=== PATIENT | male | born 1935 | race Caucasian/White ===

== ENCOUNTER → 2016-12-07 | Outpatient (CLI) | payer OTHER, BC ==
[~2016-12-07] MED LIST: ACET-1311 PO; ASPEC81 PO; ATOR-24 PO; CALC1TAB56 PO; CEPH500C2 PO; Citracal PO; FOLI1TAB7 PO; HYDR-5688 PO; ISOS120T5 PO; LPT40 PO; METH2.5T PO; METO25TA56 PO; MULTCHW PO; NTRGSL/4 UT; PRED-301 PO; PRLSR20 PO
[2016-12-07 13:16] LABS: BASO % 0.1 %; BASO ABS # 0.01 K/uL (0-0.2); COMPLETE YES; EOS % 1.1 %; HEMATOCRIT 38.3 % (42-52); IG% 0.2 %; LYMPH % 10.7 %; LYMPH ABS # 0.93 K/uL (1.2-3.4); MEAN CORPUSCULAR HEMOGLOBIN 33.4 pg (25-34); MEAN CORPUSCULAR HGB CONC 33.4 g/dl (32-36); MEAN PLATELET VOLUME 11.1 fL (7.4-10.4); MONO % 4.7 %; NEUT % 83.2 %; PLATELET COUNT 185 K/uL (130-400); RED BLOOD COUNT 3.83 M/uL (4.7-6.1); WHITE BLOOD COUNT 8.72 K/uL (4.8-10.8)
[2016-12-07 13:25] LABS: URINE APPEARANCE CLEAR (CLEAR); URINE BILIRUBIN NEG (NEG); URINE COLOR YELLOW; URINE EPITHELIAL CELL AUTO 0-5 /lpf (0-5); URINE NITRITE NEG (NEG); URINE SPECIFIC GRAVITY 1.013 (1.000-1.030); UROBILINOGEN NEG (NEG)
[2016-12-07 13:30] LABS: MANUAL MICROSCOPIC REQUIRED? NO; REVIEW REQ? NO
[2016-12-07 13:52] LABS: URINE PROTIEN/CREAT RATIO 0.5 (0-0.2); URINE TOTAL PROTEIN 24.3 mg/dl (0-11.9)
[2016-12-07 13:56] LABS: BLOOD UREA NITROGEN 32 mg/dl (7-18); GLUCOSE 91 mg/dl (70-99)
[2016-12-07 13:57] LABS: ALT/SGPT 22 U/L (12-78); AST/SGOT 12 U/L (15-37); BUN/CREATININE RATIO 19.9 (10-20); CALCIUM 8.9 mg/dl (8.5-10.1); CARBON DIOXIDE 27 mmol/L (21-32); CHLORIDE 106 mmol/L (98-107); POTASSIUM 4.5 mmol/L (3.5-5.1); SODIUM 142 mmol/L (136-145)
[2016-12-07 13:59] LABS: ALB/GLOB RATIO 1.3 (0.9-2); ALKALINE PHOSPHATASE 65 U/L (45-117)
== END | disposition home or self-care (01) ==
LOC: C.LAB1850 11:49
PROVIDERS: ATTEND Internal Medicine Nephrology
DX: M06.9 Rheumatoid arthritis, unspecified (principal); Z79.899 Other long term (current) drug therapy; I12.9 Hypertensive chronic kidney disease with stage 1 through stage 4 chronic kidney disease, or unspecified chronic kidney disease; D64.9 Anemia, unspecified; N18.3 Chronic kidney disease, stage 3 (moderate); E78.00 Pure hypercholesterolemia, unspecified

== ENCOUNTER → 2016-12-27 | Outpatient (CLI) | payer OTHER, BC ==
--- NOTE | 2016-12-27 15:56 | DIAGNOSTIC IMAGING REPORT ---
ULTRASOUND LEFT LOWER EXTREMITY ARTERIAL; ANKLE-BRACHIAL INDICES CLINICAL HISTORY: Peripheral vascular disease. COMPARISON STUDY: No priors. TECHNIQUE: Real-time, grayscale, and color Doppler sonography of the arteries of the left lower extremity is performed from the inguinal crease to the foot. Ankle-brachial indices were calculated on the left. FINDINGS: Ankle-brachial indices: Left brachial pressure measures 141. Pressures in the left posterior tibial artery measure 111 for an GUSTAVO of 0.79, and pressures in the left dorsalis pedis measure 139 for an GUSTAVO of 0.99. Left lower extremity: There is moderate atherosclerotic plaque and irregularity seen throughout the arteries of the left lower extremity. There are biphasic waveforms in the left common femoral artery with velocities measuring up to 65 cm/s. The left profunda femoris artery is patent with velocities measuring up to 80 cm/s. There are biphasic waveforms seen throughout the superficial femoral artery with velocities measuring up to 116 cm/s. There are biphasic waveforms in the popliteal artery with velocities measuring up to 92 cm/s. There is three-vessel runoff to the foot. There are elevated velocities present within the anterior tibial artery measure 121 cm/s. Blunted arterial waveforms are seen distally within the left anterior tibial artery. The left peroneal and posterior tibial arteries are patent with velocities measuring up to 67 cm/s. There is monophasic flow within the dorsalis pedis artery. Velocities in the dorsalis pedis measure up to 10 cm/s. IMPRESSION: 1. Findings suggest stenosis within the anterior tibial artery. There are blunted arterial waveforms in the distal anterior tibial artery with monophasic flow in the dorsalis pedis artery. 2. No additional foci of stenosis are suggested in the arteries of the left lower extremity. See above. 3. Ankle-brachial indices in the left lower extremity as above. Dictated: 12/27/2016 3:22 PM Transcribed: 12/27/2016 3:54 PM [place] Electronically signed by: Daryl Pathak M.D. 12/27/2016 3:55 PM Dictated Date/Time: 12/27/2016 3:22 PM
== END | disposition home or self-care (01) ==
LOC: C.ULTR 13:41
PROVIDERS: ATTEND Internal Medicine Nephrology
DX: E55.9 Vitamin D deficiency, unspecified (principal); D64.9 Anemia, unspecified; I12.9 Hypertensive chronic kidney disease with stage 1 through stage 4 chronic kidney disease, or unspecified chronic kidney disease; N18.3 Chronic kidney disease, stage 3 (moderate); N20.0 Calculus of kidney

== ENCOUNTER → 2017-01-01 | Outpatient (CLI) | payer OTHER, BC ==
--- NOTE | 2017-01-01 12:17 | DIAGNOSTIC IMAGING REPORT ---
LEFT KNEE 3 VIEWS CLINICAL HISTORY: M06.9 Rheumatoid [id number] Osteoarthritis of [id number] H pain COMPARISON: None. DISCUSSION: Considerable degenerative change all major joint compartments. Moderate underlying chondrocalcinosis. No significant joint effusion. Moderate reactive osteophytic formation throughout all major joint compartments. There is no evidence for soft tissue swelling. IMPRESSION: Severe degenerative change all major joint compartments. Chondrocalcinosis. Electronically signed by: Tushar Perry M.D. 01/01/2017 12:15 PM Dictated Date/Time: 01/01/2017 12:14 PM
== END | disposition home or self-care (01) ==
LOC: C.RAD1850 11:26
PROVIDERS: ATTEND Internal Medicine Rheumatology
DX: N18.3 Chronic kidney disease, stage 3 (moderate) (principal); M06.9 Rheumatoid arthritis, unspecified; M17.10 Unilateral primary osteoarthritis, unspecified knee; Z79.899 Other long term (current) drug therapy

== ENCOUNTER 2017-01-11 09:04 | Emergency (ER) | payer OTHER, BC ==
[~2017-01-11] VITALS: Ht 168.9 cm; Wt 64.7 kg
[~2017-01-11 09:04] MED LIST changes: -ACET-1311 PO; -ATOR-24 PO; -CALC1TAB56 PO; -CEPH500C2 PO
[2017-01-11 09:10] VITALS: Ht 168.9 cm; Wt 64.7 kg
[2017-01-11 09:56] LABS: BASO % 0.2 %; BASO ABS # 0.01 K/uL (0-0.2); COMPLETE YES; EOS % 2.4 %; HEMATOCRIT 37.2 % (42-52); IG% 0.5 %; LYMPH % 12.9 %; LYMPH ABS # 0.85 K/uL (1.2-3.4); MEAN CORPUSCULAR HEMOGLOBIN 33.5 pg (25-34); MEAN CORPUSCULAR HGB CONC 32.5 g/dl (32-36); MEAN PLATELET VOLUME 10.6 fL (7.4-10.4); MONO % 9.1 %; NEUT % 74.9 %; PLATELET COUNT 189 K/uL (130-400); RED BLOOD COUNT 3.61 M/uL (4.7-6.1)
[2017-01-11 10:13] LABS: BUN/CREATININE RATIO 18.5 (10-20); CALCIUM 8.6 mg/dl (8.5-10.1); CREATININE 1.8 mg/dl (0.60-1.40); POTASSIUM 4.5 mmol/L (3.5-5.1)
[2017-01-11] MEDS ORDERED: ATOR-24 PO (10:23)
[2017-01-11] MEDS ORDERED: METO25TA56 PO (10:24)
[2017-01-11] MEDS ORDERED: ACET-1311 PO (10:25)
[2017-01-11] MEDS ORDERED: CEFTRIAXONE SOD INJ 1 GM ADDVIAL IV STA (11:11)
--- NOTE | 2017-01-11 13:16 | DIAGNOSTIC IMAGING REPORT ---
ULTRASOUND LEFT THIGH NONVASCULAR CLINICAL HISTORY: Cellulitis. COMPARISON STUDY: No priors. FINDINGS: Real-time, grayscale, and color flow sonography of the soft tissues of the left proximal thigh is performed in the kidneys of interest. There is significant simultaneous soft tissue edema identified in this region. There is a small complex collection suggested at this site measuring 3.0 x 1.2 x 1.2 cm. A small abscess is not excluded, and this is located approximately 1 cm deep to the dermal surface. There is regional hyperemia on color imaging. IMPRESSION: There is subcutaneous soft tissue edema and hyperemia in the region of interest consistent with cellulitis. A small complex fluid collection is suggested and measures up to 3.0 cm. This could represent subcutaneous edema/fluid or small abscess. Clinical correlation will be required. Electronically signed by: Daryl Pathak M.D. 01/11/2017 1:15 PM Dictated Date/Time: 01/11/2017 1:12 PM
[2017-01-11 14:17] VITALS: BP 192/98; PULSE 80; TEMP 36.8; O2SAT 99
--- NOTE | 2017-01-11 15:13 | EMERGENCY ROOM VISIT NOTE ---
ED Visit Note First contact with patient: 09:16 I have personally seen and evaluated the patient with the PA. I agree with the diagnosis and management decisions and have been personally involved in the case. Please see Aurelio Warner PA-C's notes for further details of the history, physical and visit.
--- NOTE | 2017-01-11 17:30 | EMERGENCY ROOM VISIT NOTE ---
ED Visit Note First contact with patient: 09:16 CHIEF COMPLAINT: Lump on my left thigh, . HISTORY OF PRESENT ILLNESS: Mr. Barrera is an 81-year-old white male who ambulates with a cane into the ED accompanied by his complaining of a possible infection on the left thigh. Patient reports 5 days ago he noted a hard tender area on the medial border of the proximal thigh. She reports initially this hard tender area was small but has gradually increased in size and is now more tender and more painful. He is also noted that the area is getting larger and extending posterior into the base of the left gluteus area. Currently he describes his pain as a constant pressure sensation with intermittent sharp sensation. He rates his discomfort 8/10. The pain is throughout the area of the lesion but does not extend outside the lesion area. His pain worsens when he is sitting on his buttocks and also when he is lying down. He has not identified any alleviating factors related to the pain. He has been taken Tylenol for pain without relief. He denies fevers, chills, sweats, other skin eruptions, other skin color changes , upper respiratory tract symptoms, chest pain, shortness of breath, abdominal pain, nausea, vomiting, decreased appetite, urinary symptoms, hematuria, rectal pain, diarrhea, constipation, black/tarry stools, bloody stools, lower extremity weakness/numbness/tingling, genital paresthesias, bowel and bladder dysfunction. REVIEW OF SYSTEMS: All body systems were reviewed with the patient and found to be negative unless noted above otherwise. PAST MEDICAL HISTORY: Heart disease, hypertension, kidney stones. CURRENT MEDICATION: Medications Dose Route/Sig Max Daily Dose Days Date Category Dose Instructions Tylenol (Acetaminophen) 325 Mg Tab 650 Mg PO UD PRN 01/11/17 Reported Lopressor (Metoprolol Tartrate) 25 Mg Tab 25 Mg PO BID 01/11/17 Reported Lipitor (Atorvastatin Calcium) 40 Mg Tab 40 Mg PO DAILY 01/11/17 Reported Aspirin EC Low Dose (Aspirin) 81 Mg Ectab 81 Mg PO QAM 30 07/13/16 Rx Nitrostat (Nitroglycerin) 0.4 Mg Tab 0.4 Mg UT PRN 07/13/16 Reported [place] 5MG/325MG (Acetaminophen/Hydrocodone Bitart) Tab 1 Tab PO Q6H PRN 30 07/13/16 Reported PRN PAIN Prednisone 5 Mg Tab 5 Mg PO DAILY 07/13/16 Reported Centrum Silver (Multiple Vitamins W/ Minerals) 1 Chw Chw 1 Tab PO DAILY 03/19/13 Reported Folvite (Folic Acid) 1 Mg Tab 1 Mg PO 6XWK 03/19/13 Reported NONE ON SUNDAYS Prilosec (Omeprazole) 20 Mg Capcr 20 Mg PO BID 03/19/13 Reported Methotrexate 2.5 Mg Tab 10 Mg PO WK 03/19/13 Reported SUNDAY ALLERGIES TO MEDICATION: Sulfa, IV contrast dye and Dutasteride. SOCIAL HISTORY: Patient is not currently employed; he lives with his and feels safe in his home environment; he denies tobacco and alcohol use. PHYSICAL EXAM: Vital Signs: Date Time Temp Pulse Resp B/P Pulse Ox O2 Delivery O2 Flow Rate FiO2 01/11/17 14:17 36.8 80 18 192/98 99 01/11/17 11:05 59 18 142/74 99 Room Air 01/11/17 09:10 36.8 67 17 173/61 98 Room Air General: 81 year-old white male in in moderate distress due to pain, nontoxic appearing, afebrile and hemodynamically stable. Neurological: Awake, alert and oriented to person, place and time. Answering questions appropriately and following commands. Skin: Warm, dry and pink. Left Proximal Thigh: Over the medial border of the thigh there is an indurated area that measures approximately 2 cm. It then follows up posterior course and stops over the distal gluteal area on the left buttocks. The area is not fluctuant or pointing. There is no lymphangitis or drainage. There is a minimal a zone of inflammation around the lesion. Thorax: Lungs sounds are clear to auscultation and equal bilaterally with symmetrical chest wall movement. No wheezing, rales or rhonchi. No increased respiratory effort. Abdomen: Flat, soft and nontender. Positive bowel sounds in all quadrants. No guarding or rigidity. ED COURSE: Patient is assessed as noted above. Laboratory Testing: Test 01/11/17 09:40 Range/Units White Blood Count 6.60 4.8-10.8 K/uL Red Blood Count 3.61 4.7-6.1 M/uL Hemoglobin 12.1 14.0-18.0 g/dL Hematocrit 37.2 42-52 % Mean Corpuscular Volume 103.0 80-100 fL Mean Corpuscular Hemoglobin 33.5 25-34 pg Mean Corpuscular Hemoglobin Concent 32.5 32-36 g/dl Platelet Count 189 130-400 K/uL Mean Platelet Volume 10.6 7.4-10.4 fL Neutrophils (%) (Auto) 74.9 % Lymphocytes (%) (Auto) 12.9 % Monocytes (%) (Auto) 9.1 % Eosinophils (%) (Auto) 2.4 % Basophils (%) (Auto) 0.2 % Neutrophils # (Auto) 4.95 1.4-6.5 K/uL Lymphocytes # (Auto) 0.85 1.2-3.4 K/uL Monocytes # (Auto) 0.60 0.11-0.59 K/uL Eosinophils # (Auto) 0.16 0-0.5 K/uL Basophils # (Auto) 0.01 0-0.2 K/uL RDW Standard Deviation 56.0 36.4-46.3 fL RDW Coefficient of Variation 15.1 11.5-14.5 % Immature Granulocyte % (Auto) 0.5 % Immature Granulocyte # (Auto) 0.03 0.00-0.02 K/uL Sodium Level 139 136-145 mmol/L Potassium Level 4.5 3.5-5.1 mmol/L Chloride Level 108 98-107 mmol/L Carbon Dioxide Level 26 21-32 mmol/L Anion Gap 5.0 3-11 mmol/L Blood Urea Nitrogen 33 7-18 mg/dl Creatinine 1.80 0.60-1.40 mg/dl Est Creatinine Clear Calc Drug Dose 30.5 ml/min Estimated GFR () 40.6 Estimated GFR (Non- 35.0 BUN/Creatinine Ratio 18.5 10-20 Random Glucose 87 70-99 mg/dl Calcium Level 8.6 8.5-10.1 mg/dl Nonvascular Extremity Ultrasound: Was reviewed by myself and read by the radiologist showing subcutaneous soft tissue edema and hyperemia in the proximal left thigh consistent with cellulitis. A small complex fluid collection is suggested and measures up to 3 cm which could represent edema/ fluid or small abscess. Drainage Procedure: Verbal consent was obtained after the risks and benefits were explained. The skin was prepped with betadine and a sterile field set. The abscess was punctured with a long needle 3 times. Multiple attempts to aspirate the underlying cystic lesion was unsuccessful. Iodoform gauze packing was inserted into the abscess. A sterile dressing was applied. No complications and the patient tolerated the procedure well. Patient was offered pain medications multiple times during his stay in the emergency and refused. Patient was given a gram of Rocephin IV. Patient's case was reviewed with Dr. Ponce; she apparently assessed the patient we agreed on diagnostic approach, treatment, disposition and plan. Patient was educated about his condition and instructed on his treatment plan; they verbalized understanding and agreement with this plan. CLINICAL IMPRESSION: Abscess of the left thigh. DISPOSITION: Patient discharged to home in stable condition accompanied by his ; prior to departure he was reassessed and subjectively reported he was feeling better and rated his discomfort 5/10. PLAN: Patient was encouraged to alternate ibuprofen and acetaminophen as needed for pain. Patient was encouraged use warm compresses over the area. Patient was encouraged return the ED for recheck tomorrow or sooner for fevers, worsening pain, worsening signs of infection or any new/concerning symptoms.
[2017-01-12] MEDS ORDERED: CALC1TAB56 PO (13:28)
[2017-01-12] MEDS ORDERED: HYDR-5688 PO (16:03)
[2017-01-12] MEDS ORDERED: CEPH500C2 PO (16:03)
== END 2017-01-11 14:18 | disposition home or self-care (01) ==
LOC: C.EDB 09:05 → C.EDA 14:18
DX: L02.416 Cutaneous abscess of left lower limb (principal); I10 Essential (primary) hypertension; Z87.442 Personal history of urinary calculi

== ENCOUNTER 2017-01-12 12:51 | Emergency (ER) | payer OTHER, BC ==
[~2017-01-12] VITALS: Ht 167.6 cm; Wt 64.6 kg
[~2017-01-12 12:51] MED LIST changes: +ACET-1311 PO; +ATOR-24 PO
[2017-01-12 12:59] VITALS: TEMP 36.7; Ht 167.6 cm; Wt 64.6 kg
[2017-01-12] MEDS ORDERED: CEFTRIAXONE SOD INJ 1 GM ADDVIAL IV STA (13:15)
[2017-01-12] MEDS ORDERED: ONDANSETRON INJ 2 MG/ML 2 ML VIAL IV STA (13:23)
[2017-01-12] MEDS ORDERED: MoRPHine SULFATE 4 MG/ML 1 ML CARP\\VIAL IV STA (13:23)
[2017-01-12] MEDS ORDERED: CALC1TAB56 PO (13:28)
--- NOTE | 2017-01-12 15:34 | DIAGNOSTIC IMAGING REPORT ---
ULTRASOUND LEFT THIGH NONVASCULAR CLINICAL HISTORY: Cellulitis. COMPARISON STUDY: Ultrasound of the left thigh dated 01/11/2017. FINDINGS: Real-time, grayscale, and color flow sonography of the soft tissues of the left proximal thigh is performed at the site of interest. Subcutaneous soft tissue edema is again seen in this region. There is a small complex collection again suggested at this site measuring 3.1 x 1.1 x 1.2 cm. A small abscess is not excluded, and this is located approximately 1 cm deep to the dermal surface. This was marked for the referring clinician. There is regional hyperemia again suggested on color imaging. IMPRESSION: No significant change in the appearance of subcutaneous soft tissue edema and hyperemia in the region of interest in the left thigh consistent with cellulitis. A small complex fluid collection is again identified and measures up to 3.0 cm. This likely represents a small abscess. Electronically signed by: Daryl Pathak M.D. 01/12/2017 3:32 PM Dictated Date/Time: 01/12/2017 3:29 PM
[2017-01-12] MEDS ORDERED: CEPH500C2 PO (16:03)
[2017-01-12] MEDS ORDERED: HYDR-5688 PO (16:03)
[2017-01-12 16:21] VITALS: BP 131/94; PULSE 68; O2SAT 97
--- NOTE | 2017-01-12 18:38 | EMERGENCY ROOM VISIT NOTE ---
ED Visit Note First contact with patient: 13:15 I have personally seen and evaluated the patient with the PA. I agree with the diagnosis and management decisions and have been personally involved in the case. Please see Aurelio Warner PA-C's notes for further details of the history, physical and visit.
--- NOTE | 2017-01-13 21:58 | EMERGENCY ROOM VISIT NOTE ---
ED Visit Note First contact with patient: 13:05 CHIEF COMPLAINT: Abscess recheck. HISTORY OF PRESENT ILLNESS: Mr. Barrera is an 81-year-old white male who ambulates with a cane into the ED accompanied by his for a recheck of his abscess. I had seen Mr. Barrera yesterday in the emergency department and he was diagnosed with a proximal left leg abscess. At that time laboratory results are unremarkable and an ultrasound did show an abscess in the area of his infection. A drainage procedure was attempted but was unsuccessful. He did receive a course of IV antibiotics and was encouraged to return today for recheck. Patient reports throughout tonight he continued to have moderate discomfort in the area of his abscess primarily when he is sitting but did not have any fevers or any additional symptoms. Currently he is complaining of a throbbing pain in the area of his abscess. He rates this discomfort 8/10. The pain is nonradiating. His pain does worsen when he is sitting on his buttocks. He has mild relief of his discomfort when he is not putting pressure on the area of his abscess. He denies fevers, chills, sweats, any additional skin eruptions or skin color changes, decreased appetite, chest pain, shortness of breath, nausea, vomiting, leg weakness/numbness/tingling. REVIEW OF SYSTEMS: All body systems were reviewed with the patient and found to be negative unless noted above otherwise. PAST MEDICAL HISTORY: Heart disease, hypertension, kidney stones. CURRENT MEDICATION: Medications Dose Route/Sig Max Daily Dose Days Date Category Dose Instructions Tylenol (Acetaminophen) 325 Mg Tab 650 Mg PO UD PRN 01/11/17 Reported Lopressor (Metoprolol Tartrate) 25 Mg Tab 25 Mg PO BID 01/11/17 Reported Lipitor (Atorvastatin Calcium) 40 Mg Tab 40 Mg PO DAILY 01/11/17 Reported Aspirin EC Low Dose (Aspirin) 81 Mg Ectab 81 Mg PO QAM 30 07/13/16 Rx Nitrostat (Nitroglycerin) 0.4 Mg Tab 0.4 Mg UT PRN 07/13/16 Reported [place] 5MG/325MG (Acetaminophen/Hydrocodone Bitart) Tab 1 Tab PO Q6H PRN 30 07/13/16 Reported PRN PAIN Prednisone 5 Mg Tab 5 Mg PO DAILY 07/13/16 Reported Centrum Silver (Multiple Vitamins W/ Minerals) 1 Chw Chw 1 Tab PO DAILY 03/19/13 Reported Folvite (Folic Acid) 1 Mg Tab 1 Mg PO 6XWK 03/19/13 Reported NONE ON SUNDAYS Prilosec (Omeprazole) 20 Mg Capcr 20 Mg PO BID 03/19/13 Reported Methotrexate 2.5 Mg Tab 10 Mg PO WK 03/19/13 Reported SUNDAY ALLERGIES TO MEDICATION: Sulfa, IV contrast dye and Dutasteride. SOCIAL HISTORY: Patient is not currently employed; he lives with his and feels safe in his home environment; he denies tobacco and alcohol use. PHYSICAL EXAM: Vital Signs: Date Time Temp Pulse Resp B/P Pulse Ox O2 Delivery O2 Flow Rate FiO2 01/12/17 16:21 68 18 131/94 97 01/12/17 14:36 58 160/77 95 01/12/17 12:59 36.7 72 20 132/75 98 Room Air General: 81 year-old white male in mild moderate distress due to pain, nontoxic appearing, afebrile and hemodynamically stable. Neurological: Awake, alert and oriented to person, place and time. Answering questions appropriately and following commands. Skin: Warm, dry and pink. Left Proximal Thigh: Over the medial border of the thigh there is an indurated area that measures approximately 2 cm. the area of erythema then tracks posteriorly and stops over the distal gluteal area on the left buttocks. The area continues used to be nonfluctuant and there is no porting or drainage. The erythema appears last then yesterday. There was some shininess to the skin yesterday that is not present today. The area up appears flatter today than it was yesterday. There continues to be no lymphangitis. The zone of inflammation around the lesion has completely resolved and now there is only the indurated area. Thorax: Lungs sounds are clear to auscultation and equal bilaterally with symmetrical chest wall movement. No wheezing, rales or rhonchi. No increased respiratory effort. Abdomen: Flat, soft and nontender. Positive bowel sounds in all quadrants. No guarding or rigidity. ED COURSE: Patient is assessed as noted above. Nonvascular Extremity Ultrasound: Was reviewed by myself and read by the radiologist showing no significant change in the ultrasound and the appearance of the soft tissue edema and hyperemia. He reports the small complex fluid collection is still identify and does not appear to changed. After I received this report from the radiologist he did contact me by phone and when I discussed a plan to try to drain the abscess he did not feel that would be beneficial at this time and recommended follow-up with a surgeon. Patient was given a 1 gram of Rocephin IV, 4 mg of morphine IV for pain and 4 mg of Zofran IV. Patient's case was reviewed with Dr. Ponce; she apparently assessed the patient we agreed on diagnostic approach, treatment, disposition and plan. Patient and were educated about his condition and instructed on his treatment plan; they verbalized understanding and agreement with this plan. CLINICAL IMPRESSION: Abscess recheck. DISPOSITION: Patient discharged to home in stable condition accompanied by his ; prior to departure he was reassessed and subjectively reported he was feeling better and rated his discomfort 3/10. PLAN: Patient was placed on a sliding pain scale of acetaminophen and [place]; appropriate narcotic precautions were discussed with the patient. Patient was prescribed Keflex 500 mg 4 times a day for 10 days. Patient was encouraged to follow-up with Dr. Styles, general surgery. Patient was encouraged to continue to observe the area every day and watch for increasing signs of infection. Patient was encouraged return to the ED for increasing signs of infection or any new/concerning symptoms.
== END 2017-01-12 16:22 | disposition home or self-care (01) ==
LOC: C.EDB 12:54 → C.EDD 16:22
DX: L02.416 Cutaneous abscess of left lower limb (principal); I10 Essential (primary) hypertension; Z87.442 Personal history of urinary calculi

== ENCOUNTER → 2017-05-02 | Outpatient (CLI) | payer OTHER, BC ==
[~2017-05-02] MED LIST changes: +CALC1TAB56 PO; -Citracal PO; -ISOS120T5 PO; -LPT40 PO
[2017-05-02 12:26] LABS: BASO % 0.2 %; BASO ABS # 0.02 K/uL (0-0.2); COMPLETE YES; EOS % 0.9 %; HEMATOCRIT 38.7 % (42-52); IG% 0.2 %; LYMPH % 9.1 %; LYMPH ABS # 0.74 K/uL (1.2-3.4); MEAN CELL VOLUME 102.9 fL (80-100); MEAN CORPUSCULAR HGB CONC 33.1 g/dl (32-36); MEAN PLATELET VOLUME 10.8 fL (7.4-10.4); MONO % 4.8 %; NEUT % 84.8 %; PLATELET COUNT 225 K/uL (130-400); RED BLOOD COUNT 3.76 M/uL (4.7-6.1); WHITE BLOOD COUNT 8.09 K/uL (4.8-10.8)
[2017-05-02 13:35] LABS: ALT/SGPT 26 U/L (12-78); AST/SGOT 20 U/L (15-37)
[2017-05-02 13:39] LABS: ALKALINE PHOSPHATASE 61 U/L (45-117)
== END | disposition home or self-care (01) ==
LOC: C.LAB1850 11:06
PROVIDERS: ATTEND Internal Medicine Rheumatology
DX: M06.9 Rheumatoid arthritis, unspecified (principal); M17.10 Unilateral primary osteoarthritis, unspecified knee; N18.3 Chronic kidney disease, stage 3 (moderate); Z79.899 Other long term (current) drug therapy

== ENCOUNTER → 2017-06-07 | Outpatient (CLI) | payer OTHER, BC ==
[2017-06-07 09:57] LABS: CHOLESTEROL/HDL RATIO 2.4
== END | disposition home or self-care (01) ==
LOC: C.LAB1850 08:09
PROVIDERS: ATTEND Internal Medicine Cardiovascular Disease
DX: I10 Essential (primary) hypertension (principal); E78.00 Pure hypercholesterolemia, unspecified; I25.10 Atherosclerotic heart disease of native coronary artery without angina pectoris; I20.9 Angina pectoris, unspecified; I77.810 Thoracic aortic ectasia

== ENCOUNTER 2017-11-28 23:54 | Inpatient (IN) | payer OTHER, BC ==
[~2017-11-28] VITALS: Ht 165.1 cm; Wt 61.0 kg
[~2017-11-28 23:54] MED LIST changes: -ASPEC81 PO; +ASPI-320 PO; -LSN5 PO; -OXYC-57 PO
[2017-11-29] VITALS (58 sets, daily range): BP systolic 104–179; BP diastolic 51–91; PULSE 60–94; TEMP 36.5–36.7; O2SAT 91–99; BMI 22.3
[2017-11-29] MEDS ORDERED: SODIUM CHLORIDE 0.9% 1000ML 1,000 ML IV STA (00:16)
[2017-11-29] MEDS ORDERED: MoRPHine SULFATE 4 MG/ML 1 ML CARP\\VIAL IV STA (00:16)
[2017-11-29] MEDS ORDERED: ONDANSETRON INJ 2 MG/ML 2 ML VIAL IV STA (00:16)
--- NOTE | 2017-11-29 00:21 | EMERGENCY ROOM VISIT NOTE ---
History Report prepared by Scribe: Kelly Schultz Under the Supervision of: Dr. Kacie Ponce M.D. First contact with patient: 00:06 Chief Complaint: ABDOMINAL PAIN Stated Complaint: PAIN AT [place] History of Present Illness The patient is a 82 year old male who presents to the Emergency Room with complaints of persistent abdominal pain since 2199 this evening. He states he was laying in bed when the pain started, and he noticed a lump in his umbilical area that he believes is a hernia. He rates his discomfort as an 8/10 in severity. His last BM was yesterday. He admits to increased coughing for the past few months and states coughing worsens his pain. Laying flat helps to relieve his discomfort. He denies any recent nausea or vomiting. Source of History: patient Onset: 2199 this evening Position: abdomen Symptom Intensity: 8/10 Timing: other (persistent) Modifying Factors (Worsening): other (coughing) Modifying Factors (Relieving): other (laying flat) Associated Symptoms: No nausea, No vomiting Review of Systems See HPI for pertinent positives & negatives. A total of 10 systems reviewed and were otherwise negative. 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 Surgical Problems: (1) History of lumbosacral spine surgery (2) Hx of CABG (3) S/P bilateral inguinal hernia repair Social History Smoking Status: Former Smoker Alcohol Use: occasionally Drug Use: none Marital Status: Housing Status: lives with family Occupation Status: retired Current/Historical Medications Scheduled Aspirin (Aspirin EC Low Dose), 81 MG PO QAM Atorvastatin (Lipitor), 40 MG PO HS Calcium-Magnesium W/ Vitamin D (Citracal Calcium+D Slow R), 1 TAB PO DAILY Folic Acid (Folvite), 1 MG PO 6XWK Methotrexate (Methotrexate), 10 MG PO WK Metoprolol Tartrate (Lopressor) (Lopressor), 25 MG PO BID Multiple Vitamins W/ Minerals (Centrum Silver), 1 TAB PO DAILY Omeprazole (Prilosec), 20 MG PO DAILY Prednisone (Prednisone), 5 MG PO DAILY Scheduled PRN Nitroglycerin (Nitrostat), 0.4 MG UT UD PRN for Chest Pain Allergies Coded Allergies: Iodinated Diagnostic Agents (Verified Allergy, Unknown, HIVES, 11/29/17) Sulfa Antibiotics (Verified Allergy, Unknown, HIVES, 11/29/17) Dutasteride (Unverified Adverse Reaction, Unknown, Skin lesions, 11/29/17) Physical Exam Vital Signs Date Time Temp Pulse Resp B/P (MAP) Pulse Ox O2 Delivery O2 Flow Rate FiO2 11/29/17 04:34 60 18 199/80 98 11/29/17 04:10 60 18 199/80 98 11/29/17 03:00 55 18 179/80 99 Room Air 11/29/17 02:00 53 18 150/74 95 Room Air 11/29/17 01:00 56 16 149/71 98 Room Air 11/28/17 23:59 36.3 62 18 192/93 98 Room Air Physical Exam Vital signs reviewed. General: Chronically ill-appearing 82 year old male, in no significant distress. HEENT: No scleral icterus, PERRLA, neck supple. Atraumatic. Cardiovascular: Regular rate and rhythm, no extra sounds. Pulmonary: Clear to auscultation bilaterally, normal work of breathing. Abdomen: Soft, 4 cm hard mass at umbilicus, tender to palpation, not currently reducible. Abdomen is nondistended, positive bowel sounds. Musculoskeletal: Atraumatic, no peripheral edema. Neurologic: Patient awake alert and oriented x 3, full strength in all 4 extremities. Cranial nerves 2 through 12 grossly intact. Skin: Warm, dry, no rash Medical Decision & Procedures ER Provider Diagnostic Interpretation: Radiology results as stated below per my review and radiologist interpretation: CT ABDOMEN & PELVIS WO Contrast Umbilical hernia containing a loop of small bowel which demonstrates adjacent inflammatory changes concerning for incarceration. There are dilated loops of proximal small bowel compatible with obstruction. Emphysema in the lung bases, with left basilar infiltrate versus atelectasis. Bilateral renal hypo-densities , most of which are simple cysts, some are too small to characterize. Mild infra -renal abdominal aortic aneurysm measuring 3.1 cm in AP diameter. Enlarged prostate gland. Prior fusion of the lower lumbar spine. Significant streak artifact limits evaluation of adjacent soft tissues. Radiologist: Dr. Bryan Santillan, Laboratory Results Test 11/29/17 00:30 11/29/17 00:55 Total Bilirubin 0.7 mg/dl (0.2-1) Direct Bilirubin 0.2 mg/dl (0-0.2) Aspartate Amino Transf (AST/SGOT) 19 U/L (15-37) Alanine Aminotransferase (ALT/SGPT) 26 U/L (12-78) Alkaline Phosphatase 67 U/L (45-117) Total Protein 6.7 gm/dl (6.4-8.2) Albumin 3.7 gm/dl (3.4-5.0) Urine Color YELLOW Urine Appearance CLEAR (CLEAR) Urine pH 8.0 (4.5-7.5) Urine Specific [place] 1.017 (1.000-1.030) Urine Protein TRACE (NEG) Urine Glucose (UA) NEG (NEG) Urine Ketones NEG (NEG) Urine Occult Blood NEG (NEG) Urine Nitrite NEG (NEG) Urine Bilirubin NEG (NEG) Urine Urobilinogen NEG (NEG) Urine Leukocyte Esterase NEG (NEG) Urine WBC (Auto) 0 /hpf (0-5) Urine RBC (Auto) 0-4 /hpf (0-4) Urine Hyaline Casts (Auto) 0 /lpf (0-5) Urine Epithelial Cells (Auto) 0-5 /lpf (0-5) Urine Bacteria (Auto) NEG (NEG) Laboratory results per my review. Medications Administered Medications (Trade) Dose Ordered Sig/Yandel Route Start Time Stop Time Status Last Admin Dose Admin Morphine Sulfate (MoRPHine SULFATE INJ) 4 mg NOW STAT IV 11/29/17 00:16 11/29/17 00:21 DC 11/29/17 00:33 4 MG Ondansetron HCl (Zofran Inj) 4 mg NOW STAT IV 11/29/17 00:16 11/29/17 00:21 DC 11/29/17 00:33 4 MG Sodium Chloride 1,000 ml @ 125 mls/hr Q8H STAT IV 11/29/17 00:16 11/29/17 08:15 DC 11/29/17 00:34 125 MLS/HR Morphine Sulfate (MoRPHine SULFATE INJ) 2 mg Q1H PRN IV 11/29/17 06:30 18 06:29 11/30/17 01:49 2 MG ED Course 0015: Past medical records reviewed. The patient was evaluated in room B4. A complete history and physical examination was performed. 0016: NSS 1000 ml @ 125 mls/hr IV, Zofran 4 mg IV, Morphine Sulfate 4 mg IV. 0209: I discussed the patients case with [facility]. The patient will be further evaluated. 0320: Dr. Cerna informed me he will be taking the patient to the OR. Medical Decision Differential Diagnoses: Incarcerated hernia, fat containing versus bowel containing, cellulitis, abscess and mass. This pt was evaluated and appeared to be in no distress. Pt is having significant tenderness to the umbilicus. The area in question is not easily reduced on exam. IV access was obtained and lab work was drawn. Pt was medicated with IV morphine x2 and zofran. CT abd pelvis reveals an umbilical hernia with small bowel that appears to be incarcerated. Dr Cerna of general surgery was contacted and agreed to evaluate pt in the ED. Pt was taken to the OR for definitive management. Pt and were updated on plan and agreed. Medication Reconcilliation Current Medication List: was personally reviewed by me Blood Pressure Screening Patient's blood pressure: Elevated blood pressure Blood pressure disposition: Referred to PCP Consults Time Called: 020 Consulting Physician: Dr. Cerna, [facility] Returned Call: 020 I discussed the patients case with Dr[facility], [facility]. The patient will be further evaluated. Impression Primary Impression: Incarcerated umbilical hernia Additional Impression: Small bowel obstruction Scribe Attestation The scribe's documentation has been prepared under my direction and personally reviewed by me in its entirety. I confirm that the note above accurately reflects all work, treatment, procedures, and medical decision making performed by me. Departure Information Dispostion Being Evaluated By Surgeon Lamar Dupree M.D. (PCP) Patient Instructions [facility] Problem Qualifiers
[2017-11-29 00:41] LABS: BASO % 0.3 %; BASO ABS # 0.03 K/uL (0-0.2); EOS % 1.8 %; EOS ABS # 0.18 K/uL (0-0.5); HEMATOCRIT 38.5 % (42-52); HEMOGLOBIN 12.8 g/dL (14.0-18.0); IG# 0.02 K/uL (0.00-0.02); LYMPH ABS # 1.97 K/uL (1.2-3.4); MEAN CELL VOLUME 101.3 fL (80-100); MEAN CORPUSCULAR HEMOGLOBIN 33.7 pg (25-34); MEAN CORPUSCULAR HGB CONC 33.2 g/dl (32-36); MEAN PLATELET VOLUME 10.4 fL (7.4-10.4); MONO % 6.8 %; MONO ABS # 0.67 K/uL (0.11-0.59); NEUT % 70.9 %; NEUT ABS # 6.97 K/uL (1.4-6.5); PLATELET COUNT 240 K/uL (130-400); RED CELL DISTRIBUTION WIDTH CV 15.3 % (11.5-14.5); RED CELL DISTRIBUTION WIDTH SD 55.4 fL (36.4-46.3); WHITE BLOOD COUNT 9.84 K/uL (4.8-10.8)
[2017-11-29 01:00] LABS: ALBUMIN 3.7 gm/dl (3.4-5.0); CALCIUM 8.8 mg/dl (8.5-10.1); CREATININE 1.8 mg/dl (0.60-1.40); POTASSIUM 4.7 mmol/L (3.5-5.1)
[2017-11-29 01:02] LABS: TOTAL PROTEIN 6.7 gm/dl (6.4-8.2)
--- NOTE | 2017-11-29 03:37 | History and Physical ---
History & Physical Date & Time of Service: Nov 29, 2017 at 03:26 Chief Complaint: Pain At [place] Primary Care Physician: Lamar Modi M.D. History of Present Illness Source: patient, family This is an 82-year-old male who presented to the emergency room with a complaint of pain localized to the area of the umbilicus. He developed the pain acutely beginning about 5-1/2 hours ago. He noticed discoloration of the skin of the umbilicus as well. That was not there previously. He was unaware of her hernia in the umbilicus prior to developing the pain. He has not had associated nausea, vomiting, fever, chills, change in bowel habits with his last normal bowel movement having been yesterday morning. He has had no melena or hematochezia. He denies dysuria and hematuria although he has a history of BPH for which he was on Avodart. He has never had surgery in the umbilical region in the past. There is no generalized abdominal pain. Past Medical/Surgical History PMH: Coronary artery disease status post CABG. He has had no chest pain since the CABG which was performed about a year ago. 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 Coronary artery bypass grafting 4 Removal of 2 areas of skin infection in the upper abdomen on the right Lumbar surgery with placement of hardware Social History Smoking Status: Former Smoker (Minimal while he was in the service) Smokeless Tobacco Use: No Alcohol Use: none Drug Use: none Marital Status: Occupational Status: retired Immunizations History of Influenza Vaccine: Yes History of Tetanus Vaccine?: Yes Tetanus Immunization Date: Mar 17, 2013 History of Pneumococcal: Yes History of Hepatitis B Vaccine: No Allergies Coded Allergies: Iodinated Diagnostic Agents (Verified Allergy, Unknown, HIVES, 11/29/17) Sulfa Antibiotics (Verified Allergy, Unknown, HIVES, 11/29/17) Dutasteride (Unverified Adverse Reaction, Unknown, Skin lesions, 11/29/17) Home Medications Scheduled Aspirin (Aspirin EC Low Dose), 81 MG PO QAM Atorvastatin (Lipitor), 40 MG PO DAILY Calcium-Magnesium W/ Vitamin D (Citracal Calcium+D Slow R), 1 TAB PO DAILY Folic Acid (Folvite), 1 MG PO 6XWK Methotrexate (Methotrexate), 10 MG PO WK Metoprolol Tartrate (Lopressor) (Lopressor), 25 MG PO BID Multiple Vitamins W/ Minerals (Centrum Silver), 1 TAB PO DAILY Omeprazole (Prilosec), 20 MG PO BID Prednisone (Prednisone), 5 MG PO DAILY Scheduled PRN Nitroglycerin (Nitrostat), 0.4 MG UT UD PRN for Chest Pain Review of Systems Constitutional: No fever, No chills Cardiovascular: No chest pain Abdomen: + problem reported (as per HPI) Genitourinary - Male: + problem reported (as per HPI) Endocrine: No fatigue Integumentary: No rash Physical Exam Vital Signs Date Time Temp Pulse Resp B/P (MAP) Pulse Ox O2 Delivery O2 Flow Rate FiO2 11/29/17 01:00 56 16 149/71 98 Room Air 11/28/17 23:59 36.3 62 18 192/93 98 Room Air General Appearance: WD/WN, no apparent distress Head: normocephalic Neck: supple, no adenopathy Respiratory/Chest: chest non-tender Cardiovascular: regular rate, rhythm Abdomen/GI: normal bowel sounds, soft, + pertinent finding (Discoloration of the skin of the umbilicus with a palpable hernia that cannot be reduced that is tender) Back: normal inspection Extremities/Musculoskelatal: + pedal edema (On the left), + pertinent finding ( Status post amputation below the knee on the right) Skin: normal color Diagnostics Laboratory Results Results Past 24 Hours Test 11/29/17 00:30 11/29/17 00:55 Range/Units White Blood Count 9.84 4.8-10.8 K/uL Red Blood Count 3.80 4.7-6.1 M/uL Hemoglobin 12.8 14.0-18.0 g/dL Hematocrit 38.5 42-52 % Mean Corpuscular Volume 101.3 80-100 fL Mean Corpuscular Hemoglobin 33.7 25-34 pg Mean Corpuscular Hemoglobin Concent 33.2 32-36 g/dl Platelet Count 240 130-400 K/uL Mean Platelet Volume 10.4 7.4-10.4 fL Neutrophils (%) (Auto) 70.9 % Lymphocytes (%) (Auto) 20.0 % Monocytes (%) (Auto) 6.8 % Eosinophils (%) (Auto) 1.8 % Basophils (%) (Auto) 0.3 % Neutrophils # (Auto) 6.97 1.4-6.5 K/uL Lymphocytes # (Auto) 1.97 1.2-3.4 K/uL Monocytes # (Auto) 0.67 0.11-0.59 K/uL Eosinophils # (Auto) 0.18 0-0.5 K/uL Basophils # (Auto) 0.03 0-0.2 K/uL RDW Standard Deviation 55.4 36.4-46.3 fL RDW Coefficient of Variation 15.3 11.5-14.5 % Immature Granulocyte % (Auto) 0.2 % Immature Granulocyte # (Auto) 0.02 0.00-0.02 K/uL Sodium Level 142 136-145 mmol/L Potassium Level 4.7 3.5-5.1 mmol/L Chloride Level 111 98-107 mmol/L Carbon Dioxide Level 23 21-32 mmol/L Anion Gap 8.0 3-11 mmol/L Blood Urea Nitrogen 39 7-18 mg/dl Creatinine 1.80 0.60-1.40 mg/dl Est Creatinine Clear Calc Drug Dose 28.1 ml/min Estimated GFR () 40.3 Estimated GFR (Non- 34.8 BUN/Creatinine Ratio 21.5 10-20 Random Glucose 92 70-99 mg/dl Calcium Level 8.8 8.5-10.1 mg/dl Total Bilirubin 0.7 0.2-1 mg/dl Direct Bilirubin 0.2 0-0.2 mg/dl Aspartate Amino Transf (AST/SGOT) 19 15-37 U/L Alanine Aminotransferase (ALT/SGPT) 26 12-78 U/L Alkaline Phosphatase 67 45-117 U/L Total Protein 6.7 6.4-8.2 gm/dl Albumin 3.7 3.4-5.0 gm/dl Urine Color YELLOW Urine Appearance CLEAR CLEAR Urine pH 8.0 4.5-7.5 Urine Specific [place] 1.017 1.000-1.030 Urine Protein TRACE NEG Urine Glucose (UA) NEG NEG Urine Ketones NEG NEG Urine Occult Blood NEG NEG Urine Nitrite NEG NEG Urine Bilirubin NEG NEG Urine Urobilinogen NEG NEG Urine Leukocyte Esterase NEG NEG Urine WBC (Auto) 0 0-5 /hpf Urine RBC (Auto) 0-4 0-4 /hpf Urine Hyaline Casts (Auto) 0 0-5 /lpf Urine Epithelial Cells (Auto) 0-5 0-5 /lpf Urine Bacteria (Auto) NEG NEG Diagnostic Radiology CT scan of the abdomen and pelvis was reviewed for both report and the images. There is a umbilical hernia that contains a loop of small bowel with inflammatory change around it suspicious for incarceration. There is dilation of the small bowel proximal to that area. Impression Assessment and Plan This patient has an incarcerated umbilical hernia with a loop of small bowel that cannot be reduced. This will need repair emergently. I have explained that to him and to his was present during the visit. I explained the possible use of mesh. We discussed the procedure and the possible need for removal of a small area of small bowel as well. I explained the possible complications and answers questions. He has signed a consent form. Resuscitation Status VTE Prophylaxis Will order VTE Prophylaxis: Yes
[2017-11-29] MEDS ORDERED: FENTANYL CITRATE INJ 50 MCG/1 ML 2 ML VIAL ONE (05:14)
[2017-11-29] MEDS ORDERED: ONDANSETRON INJ 2 MG/ML 2 ML VIAL ONE (06:21)
[2017-11-29] MEDS ORDERED: PROPOFOL IV EMULSION 10 MG/ML 20 ML VIAL IV ONE (06:21)
[2017-11-29] MEDS ORDERED: GLYCOPYRROLATE INJ 0.2 MG/ML VIAL ONE (06:21)
[2017-11-29] MEDS ORDERED: LIDOCAINE HCL 2% 2 ML VIAL (20MG/ML) ONE (06:21)
[2017-11-29] MEDS ORDERED: NEOSTIGMINE METHYLSULFATE 5 MG/5 ML SYR ONE (06:21)
[2017-11-29] MEDS ORDERED: ROCURONIUM BROMIDE 10 MG/ML 5 ML VIAL IV ONE (06:21)
[2017-11-29] MEDS ORDERED: SUCCINYLCHOLINE CHLORIDE 20 MG/ML 10 ML VIAL IV ONE (06:21)
[2017-11-29] MEDS ORDERED: PHENYLEPHRINE HCL INJ 10 MG/ML VIAL ONE (06:21)
--- NOTE | 2017-11-29 06:26 | [facility] Post Operative Brief Note ---
Immediate Operative Summary Operative Date Nov 29, 2017. Pre-Operative Diagnosis incarcerated umbilical hernia Post-Operative Diagnosis incarcerated umbilical hernia Procedure(s) Performed repair of incarcerated umbilical hernia; partial small bowel resection Surgeon Dr. Cerna Bail Bond Agent Surgeon(s) None Estimated Blood Loss 5cc Findings Consistent with Post-Op Diagnosis Specimens None Drains None Anesthesia Type General Complication(s) none Disposition Disposition: Recovery Room / PACU
[2017-11-29] MEDS ORDERED: HYDROCORTISONE SOD SUCCINATE 100 MG/2 ML VIAL ONE (06:29)
[2017-11-29] MEDS ORDERED: ESMOLOL HCL 10 MG/ML 10 ML VIAL ONE (06:29)
[2017-11-29] MEDS ORDERED: CEFAZOLIN SOD 1 GM VIAL ONE (06:29)
[2017-11-29] MEDS ORDERED: ONDANSETRON INJ 2 MG/ML 2 ML VIAL IV PRN ×2 (06:30→07:15)
[2017-11-29] MEDS ORDERED: METOPROLOL TARTRATE 1 MG/ML VIAL ONE (06:48)
[2017-11-29] MEDS ORDERED: LABETALOL HCL IV 5 MG/ML 20ML IV ONE (06:56)
[2017-11-29] MEDS ORDERED: MoRPHine SULFATE 10 MG/ML CARP/VIAL ONE (07:02)
[2017-11-29] MEDS ORDERED: EpHEDrine SULFATE INJ 50 MG/ML AMP IV PRN (07:15)
[2017-11-29] MEDS ORDERED: MoRPHine SULFATE 10 MG/ML CARP/VIAL IV PRN (07:15)
[2017-11-29] MEDS ORDERED: LABETALOL HCL IV 5 MG/ML 20ML IV PRN (07:15)
[2017-11-29] MEDS ORDERED: FENTANYL CITRATE INJ 50 MCG/1 ML 2 ML VIAL IV PRN (07:15)
[2017-11-29] MEDS ORDERED: ATROPINE SULFATE 0.1 MG/ML 5ML SYR IV PRN (07:15)
--- NOTE | 2017-11-29 07:54 | DIAGNOSTIC IMAGING REPORT ---
ABD/PELVIS NO IV OR ORAL CONT CLINICAL HISTORY: 82 years-old Male presenting with umbilical hernia. TECHNIQUE: Multidetector CT of the abdomen and pelvis was performed without the use of intravenous contrast. IV contrast: None. A dose lowering technique was used consistent with the principles of ALARA (as low as reasonably achievable). COMPARISON: None. CT DOSE (mGy.cm): The estimated cumulative dose is 282.61 mGy.cm. FINDINGS: Technical Writer topogram: Mild gaseous distention of small bowel the upper abdomen. Posterior lumbar fusion hardware median sternotomy wires noted. Lung bases: Emphysema suggested. Bronchial wall thickening. Limited subsegmental bronchial wall debris in the lower lobes. Nodular opacities in a dependent distribution in the left lower lobe. Extensive coronary artery calcification. Aortic valve and mitral annular calcification also noted. Normal heart size. No pericardial or pleural effusion. 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 Normal density. Biliary: No gross biliary ductal dilatation allowing for noncontrast technique. Gallbladder decompressed. Pancreas: Normal noncontrast appearance. Spleen: Normal noncontrast appearance. Adrenal glands: Normal noncontrast appearance. Kidneys and ureters: The kidneys are somewhat atrophic with multiple well-defined hypodensities in the renal parenchyma consistent with cysts. Some cysts demonstrate thin mural calcification suggesting minimal complexity. More coarse calcification noted peripherally at the left lower pole cyst (series 3 image 196). Several foci of calcification in the bilateral kidneys likely renal calculi, which are nonobstructing. Renal vascular calcification also noted. No hydronephrosis. Bladder: Incompletely evaluated secondary to underdistention. Pelvic organs: Prostate enlargement likely secondary to benign prostatic hyperplasia. Focal hypodensity in the anterior left transition zone (series 3 image 385), possibly cystic degeneration of BPH. Bowel: Limited diverticulosis of the proximal sigmoid colon. The appendix is normal. Distal small bowel is decompressed. Small bowel containing umbilical hernia, where there is resultant focal transition point and significant upstream small bowel distention consistent with obstruction. The loop of small bowel contained within the endocardial hernia is mildly thick-walled with subtle perienteric fat stranding suggesting early inflammatory or congestive change. No surrounding fluid. Peritoneal cavity: No free fluid or intraperitoneal gas. Lymph nodes: No gross lymphadenopathy allowing for noncontrast technique. Vasculature: Atherosclerosis of the abdominal aorta with infrarenal ectasia measuring up to 3.0 cm. Abdominal wall: Umbilical hernia as previously described. Musculoskeletal: Degenerative changes of the spine. Posterior lumbar fusion hardware noted. IMPRESSION: 1. Small bowel obstruction secondary to an umbilical hernia containing a short loop of small bowel. The contained loop of small bowel within the hernia sac demonstrates early inflammatory or congestive change. This raises concern for strangulation. 2. 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 Suspected nonobstructing renal calculi. No hydronephrosis. 3. 3 cm infrarenal abdominal aortic aneurysm. 4. Emphysema with bronchial wall thickening likely smooth related lung injury. 5. Nodular opacities in the dependent left lower lobe is concerning for aspiration or infection. The report will be called/faxed according to standard departmental protocol. Electronically signed by: Kamran Lugo M.D. 11/29/2017 7:53 AM Dictated Date/Time: 11/29/2017 6:54 AM
--- NOTE | 2017-11-29 08:02 | Anesthesiology Progress Note ---
Anesthesia Post Op Note Date & Time Nov 29, 2017 at 08:00 Vital Signs Pain Intensity: 0 Vital Signs Past 12 Hours Date Time Temp Pulse Resp B/P (MAP) Pulse Ox O2 Delivery O2 Flow Rate FiO2 11/29/17 07:51 50 11/29/17 07:50 36.5 67 12 164/74 (92) 94 Mechanical Ventilator 10 50 11/29/17 07:40 36.4 69 13 165/72 (98) 94 Mechanical Ventilator 50 11/29/17 07:30 36.0 69 15 164/74 (108) 94 Mechanical Ventilator 50 11/29/17 07:20 74 16 179/80 94 Mechanical Ventilator 50 11/29/17 07:10 71 15 173/75 93 Mechanical Ventilator 50 11/29/17 07:00 82 24 203/94 93 Mechanical Ventilator 50 11/29/17 06:54 36.0 95 20 229/120 87 T-piece 10 11/29/17 04:34 60 18 199/80 98 11/29/17 04:10 60 18 199/80 98 11/29/17 03:00 55 18 179/80 99 Room Air 11/29/17 02:00 53 18 150/74 95 Room Air 11/29/17 01:00 56 16 149/71 98 Room Air 11/28/17 23:59 36.3 62 18 192/93 98 Room Air Notes Mental Status: alert / awake / arousable Pt Amnestic to Procedure: Yes Nausea / Vomiting: adequately controlled Pain: adequately controlled Airway Patency, RR, SpO2: stable & adequate, see Notes BP & HR: stable & adequate Hydration State: stable & adequate At end of case, patient remains weak despite full reversal. He is waking up and breathing well in pressure support but not strong enough to ensure airway patency and respiratory status if extubated. I spoke with the merchandising lead who will consult and assist with weaning from the ventilator. I suspect that he will wean today and can be transferred to floor today shortly after extubation.
[2017-11-29] MEDS: D5W AND 1/2NSS + 20MEQ KCL 1,000 ML IV SCH ×2 (09:51→21:13)
[2017-11-29] MEDS: MoRPHine SULFATE 2 MG/ML CARP IV PRN ×2 (11:36→19:49)
[2017-11-29] MEDS: HYDROCORTISONE IV 50 MG in SYRINGE 0 ML IV SCH ×2 (13:46→21:18)
--- NOTE | 2017-11-29 14:06 | OPERATIVE REPORT ---
DATE OF OPERATION: 11/29/2017 PREOPERATIVE DIAGNOSIS: Incarcerated umbilical hernia. POSTOPERATIVE DIAGNOSIS: Same. PROCEDURE: Repair of umbilical hernia with partial small bowel resection. SURGEON: Tushar Cerna MD POOL TECHNICIAN: None. FINDINGS: The patient had approximately 1-cm defect; however, there was a loop of small bowel that was protruding. I had to increase the size of the defect in order to try to get that reduced. There was one area that was patchy in the small bowel that was purple and with minimal manipulation. When trying to reduce it, there was a hole created there. At that point, I decided to perform the partial small bowel resection. I did not want to simply repair the opening as I could not be sure of the viability of the tissue at that site. The remainder of the small bowel was normal. There were no other fascial defects identified. TECHNIQUE: The patient was given a general anesthetic and the area was prepped and draped in the usual sterile fashion. Transverse incision was made below the umbilicus and carried down through the subcutaneous tissue. The hernia sac was identified and away from the surrounding tissues on the inferior left and right sides. This was then peeled off the dermis of the overlying umbilical skin and away from the superior tissue. I then opened the sac and I then opened it down towards the fascial edge. The fascial edge was then identified and the bowel within the sac was identified. I could not reduce that bowel through the small defect. I then the sac away from the fascial edge inferiorly and opened the fascia working inferiorly. That completely freed the hernia sac, which I then opened through the narrowed area. I was then placing the bowel back into the abdomen when I noted the small hole in the antimesenteric border in the area of questionable ischemia. I then decided to resect that, which was about 4 cm of small bowel. The mesentery was away from the bowel wall at each site for division and the bowel was transected in both places using the ONEIDA stapler. The mesentery was divided using a [id number] and ligate technique using 3-0 silk sutures. The anastomosis was performed. 2-0 silk was used to approximate the bowel near the mesentery and the antimesenteric borders were removed from each of the staple lines. The one limb of the ONEIDA was passed into each limb of the small bowel, making sure that I did not twist in the mesentery. The stapler was fired and the anastomosis completed. The common opening was closed with one firing of the TA stapler. Additional 3-0 silks were placed on the anterior surface of the staple line for reinforcement. The mesentery was closed with interrupted 3-0 silk sutures. I was then able to place a small bowel anastomosis back into the abdomen. The fascia was then closed with #1 PDS [id number] sutures. The skin and subcutaneous tissue were irrigated. The irrigation was removed and the skin was closed with 4-0 Monocryl in a running subcuticular fashion. The skin was cleansed, dried, benzoin placed, and Steri-Strips applied. A cotton ball was placed into the umbilicus and an Op-Site was placed over it. The estimated blood loss was 10 mL. Sponge, needle and instrument counts were correct prior to closure. The patient tolerated the surgical procedure. He was not able to be extubated in the OR and was taken to the ICU, which was the recovery room at the time of day while intubated. I attest to the content of the Intraoperative Record and any orders documented therein. Any exception s are noted below.
--- NOTE | 2017-11-29 15:34 | Critical Care Consultation ---
Critical Care Consultation Date of Consultation: Nov 29, 2017. Attending Physician: Tushar Cerna M.D. Reason for Consultation: Weakness postop History of Present Illness 82y/oM with hx of CAD s/p CABG x 4 (1 year ago), HLD, HTN and BPH who presented with abdominal pain to the ED last night. Pain had started while laying in bed last night. Pt had also noticed lump in abdominal area for the first time that looked discolored. Pain was 8/10 in severity. Last BM was 2 days ago. Pt denied any n/v, f/c, melena, hematochezia, dysuria, hematuria. In the ED: he received NSS 1L at 125mls/hr; IV Zofran and Morphine 4mg IV. Also had an abdominal CT with SBO secondary to umbilical hernia with short loop of bowel concerning for strangulation. Dr. Cerna was consulted. Pt was taken to the OR for incarcerated umbilical hernia repair with partial small bowel resection. Pt was then transferred to the ICU for notable weakness postop while on CPAP with peep of 5. Postop he received Labetalol 10mg IV for BP and Morphine 4mg IV for abdominal pain. ICU course: Soon after arrival, he was awake, following directions and coughing. Had a T-piece trial and was extubated. He also received a dose of Morphine 2mg IV for abdominal pain. He was complaining of difficulty opening L arm, weakness of L arm and hand for which a brain MRI w/ot contrast was ordered to rule out stroke and Acetyl receptor antibody test to rule out myasthenia gravis. Of note: pt reports similar episode of weakness last year at [facility] and anesthesia concerned about possible heterozygosity for acetylcholinesterase deficiency gene. Past Medical/Surgical History PMHx: Coronary artery disease status post CABG. He has had no chest pain since the CABG which was performed about a year ago. 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 Coronary artery bypass grafting 4 Removal of 2 areas of skin infection in the upper abdomen on the right Lumbar surgery with placement of hardware Social History Smoking Status: Unknown if Ever Smoked Smokeless Tobacco Use: No Alcohol Use: none Drug Use: none Marital Status: Housing Status: lives with family Occupation Status: retired Allergies Coded Allergies: Iodinated Diagnostic Agents (Verified Allergy, Unknown, HIVES, 11/29/17) Sulfa Antibiotics (Verified Allergy, Unknown, HIVES, 11/29/17) Dutasteride (Unverified Adverse Reaction, Unknown, Skin lesions, 11/29/17) Home Medications Scheduled Aspirin (Aspirin EC Low Dose), 81 MG PO QAM Atorvastatin (Lipitor), 40 MG PO HS Calcium-Magnesium W/ Vitamin D (Citracal Calcium+D Slow R), 1 TAB PO DAILY Folic Acid (Folvite), 1 MG PO 6XWK Methotrexate (Methotrexate), 10 MG PO WK Metoprolol Tartrate (Lopressor) (Lopressor), 25 MG PO BID Multiple Vitamins W/ Minerals (Centrum Silver), 1 TAB PO DAILY Omeprazole (Prilosec), 20 MG PO DAILY Prednisone (Prednisone), 5 MG PO DAILY Scheduled PRN Nitroglycerin (Nitrostat), 0.4 MG UT UD PRN for Chest Pain Current Inpatient Medications Current Inpatient Medications Medications (Trade) Dose Ordered Sig/Yandel Route Start Time Stop Time Status Last Admin Dose Admin Oxycodone/ Acetaminophen (Percocet 5-325mg Tab) 1 tab Q4H PRN PO 11/29/17 06:30 12/13/17 06:29 Morphine Sulfate (MoRPHine SULFATE INJ) 2 mg Q1H PRN IV 11/29/17 06:30 12/13/17 06:29 11/29/17 11:36 2 MG Ondansetron HCl (Zofran Inj) 4 mg Q6H PRN IV 11/29/17 06:30 12/29/17 06:29 Potassium Chloride/Dextrose/ Sod Cl 1,000 ml @ 80 mls/hr [id number] IV 11/29/17 09:45 12/29/17 09:44 11/29/17 09:51 80 MLS/HR Enoxaparin Sodium (Lovenox Inj) 40 mg Q24H SQ 11/30/17 06:30 12/30/17 06:29 UNV Hydrocortisone Sodium Succinate 50 mg/Syringe 1 ml @ 4 mls/min Q8 IV 11/29/17 14:00 11/29/17 22:01 11/29/17 13:46 4 MLS/MIN Review of Systems Constitutional: + weakness, No fever, No chills Respiratory: + cough Cardiovascular: No chest pain Abdomen: + pain, No nausea, No vomiting Genitourinary - Male: No hematuria, No dysuria Neurologic: + problem reported (L arm/hand weakness) Endocrine: + fatigue Integumentary: + problem reported (umbilical surgical site dressing intact with scant blood) Physical Exam Date Time Temp Pulse Resp B/P (MAP) Pulse Ox O2 Delivery O2 Flow Rate FiO2 11/29/17 14:01 68 133/65 (89) 96 11/29/17 13:30 66 97 11/29/17 13:01 75 133/51 (75) 95 11/29/17 12:30 65 93 11/29/17 12:15 67 96 11/29/17 12:01 74 129/77 (87) 91 11/29/17 12:00 99 Oxymask 2.0 11/29/17 12:00 71 93 11/29/17 11:45 70 92 11/29/17 11:30 70 91 11/29/17 11:15 73 93 11/29/17 11:01 61 132/64 (86) 97 11/29/17 11:01 61 132/64 (86) 97 11/29/17 11:00 61 96 11/29/17 11:00 61 96 11/29/17 10:45 70 97 11/29/17 10:30 63 95 11/29/17 10:15 60 92 11/29/17 10:01 63 104/54 (72) 94 11/29/17 10:00 62 91 11/29/17 09:45 62 92 11/29/17 09:30 74 92 11/29/17 09:30 74 92 11/29/17 09:26 86 137/72 (93) 92 11/29/17 09:21 87 140/79 (99) 93 11/29/17 09:16 69 128/62 (90) 93 11/29/17 09:15 65 95 11/29/17 09:11 68 129/66 (88) 94 11/29/17 09:06 78 152/83 (114) 96 11/29/17 09:02 85 144/65 (97) 95 11/29/17 09:00 68 94 11/29/17 08:56 69 124/63 (86) 95 11/29/17 08:51 74 157/72 (104) 95 11/29/17 08:46 91 0 167/84 (108) 93 11/29/17 08:45 94 0 93 11/29/17 08:41 71 9 156/71 (98) 95 11/29/17 08:41 71 9 156/71 (99) 95 11/29/17 08:36 78 14 179/91 (126) 96 11/29/17 08:36 78 14 179/91 (120) 96 11/29/17 08:31 81 8 157/79 (96) 96 11/29/17 08:31 81 8 157/79 (105) 96 11/29/17 08:30 80 10 97 11/29/17 08:30 80 10 97 11/29/17 08:26 69 8 162/72 (102) 96 11/29/17 08:21 67 8 156/68 (97) 95 11/29/17 08:16 73 9 154/67 (96) 96 11/29/17 08:15 67 5 94 11/29/17 08:13 36.5 64 12 154/67 95 Mechanical Ventilator 50 11/29/17 08:11 66 9 143/66 (91) 93 11/29/17 08:06 146/66 (92) 11/29/17 07:51 50 11/29/17 07:50 36.5 67 12 164/74 (92) 94 Mechanical Ventilator 10 50 11/29/17 07:40 36.4 69 13 165/72 (98) 94 Mechanical Ventilator 50 11/29/17 07:30 36.0 69 15 164/74 (108) 94 Mechanical Ventilator 50 11/29/17 07:20 74 16 179/80 94 Mechanical Ventilator 50 11/29/17 07:10 71 15 173/75 93 Mechanical Ventilator 50 11/29/17 07:00 82 24 203/94 93 Mechanical Ventilator 50 11/29/17 06:54 36.0 95 20 229/120 87 T-piece 10 11/29/17 04:34 60 18 199/80 98 11/29/17 04:10 60 18 199/80 98 11/29/17 03:00 55 18 179/80 99 Room Air 11/29/17 02:00 53 18 150/74 95 Room Air 11/29/17 01:00 56 16 149/71 98 Room Air 11/28/17 23:59 36.3 62 18 192/93 98 Room Air General Appearance: no apparent distress, other Head: normocephalic, atraumatic Eyes: no discharge, conjunctivae normal Respiratory: clear to auscultation, other (coarse breath sounds) Cardiovasular: regular rate/rhythm, normal S1S2, no murmur Abdomen: normal bowel sounds, no organomegaly, other (Abdomen TTP over umbilical region) Genitourinary - Male: other (ricks in place) Upper Extremities: other (L hand contraction (unable to open) with weakness; R IC - IV ) Lower Extremities: no edema, other (R BKA ) Neuro: alert, oriented x 3 Laboratory Results Last 24 Hours Test 11/29/17 00:30 11/29/17 00:55 11/29/17 10:45 White Blood Count 9.84 K/uL Red Blood Count 3.80 M/uL Hemoglobin 12.8 g/dL Hematocrit 38.5 % Mean Corpuscular Volume 101.3 fL Mean Corpuscular Hemoglobin 33.7 pg Mean Corpuscular Hemoglobin Concent 33.2 g/dl Platelet Count 240 K/uL Mean Platelet Volume 10.4 fL Neutrophils (%) (Auto) 70.9 % Lymphocytes (%) (Auto) 20.0 % Monocytes (%) (Auto) 6.8 % Eosinophils (%) (Auto) 1.8 % Basophils (%) (Auto) 0.3 % Neutrophils # (Auto) 6.97 K/uL Lymphocytes # (Auto) 1.97 K/uL Monocytes # (Auto) 0.67 K/uL Eosinophils # (Auto) 0.18 K/uL Basophils # (Auto) 0.03 K/uL RDW Standard Deviation 55.4 fL RDW Coefficient of Variation 15.3 % Immature Granulocyte % (Auto) 0.2 % Immature Granulocyte # (Auto) 0.02 K/uL Sodium Level 142 mmol/L Potassium Level 4.7 mmol/L Chloride Level 111 mmol/L Carbon Dioxide Level 23 mmol/L Anion Gap 8.0 mmol/L Blood Urea Nitrogen 39 mg/dl Creatinine 1.80 mg/dl Est Creatinine Clear Calc Drug Dose 28.1 ml/min Estimated GFR () 40.3 Estimated GFR (Non- 34.8 BUN/Creatinine Ratio 21.5 Random Glucose 92 mg/dl Calcium Level 8.8 mg/dl Total Bilirubin 0.7 mg/dl Direct Bilirubin 0.2 mg/dl Aspartate Amino Transf (AST/SGOT) 19 U/L Alanine Aminotransferase (ALT/SGPT) 26 U/L Alkaline Phosphatase 67 U/L Total Protein 6.7 gm/dl Albumin 3.7 gm/dl Urine Color YELLOW Urine Appearance CLEAR Urine pH 8.0 Urine Specific [place] 1.017 Urine Protein TRACE Urine Glucose (UA) NEG Urine Ketones NEG Urine Occult Blood NEG Urine Nitrite NEG Urine Bilirubin NEG Urine Urobilinogen NEG Urine Leukocyte Esterase NEG Urine WBC (Auto) 0 /hpf Urine RBC (Auto) 0-4 /hpf Urine Hyaline Casts (Auto) 0 /lpf Urine Epithelial Cells (Auto) 0-5 /lpf Urine Bacteria (Auto) NEG Diagnostic Results CT abdomen/Pelvis w/ot contrast: SBO secondary to umbilical hernia with short loop of bowel concerning for strangulation; 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 PNA. Assessment & Plan 82y/oM with hx of CAD s/p CABG x 4 (1 year ago), HLD, HTN and BPH who presented with abdominal pain. Admitted to the ICU s/p incarcerated umbilical hernia repair with small bowel resection for concern of fatigue and L arm/hand weakness concerning for stroke vs. myasthenia gravis. PLAN: Neuro: Alert and oriented x 3 with L arm/hand weakness and generalized fatigue. L hand contracted and unable to keep open. Concerning for stroke vs. myasthenia gravis MRI brain w/ot contrast - pending Acetylcholine receptor block Ab - pending PAIN: morphine 2mg IV Q1H PRN and Percocet 1 tab Q4H PRN CV: BP now wnl Hx of HTN and HLD On Metoprolol tartrate 25mg BID Pulm: Initially on CPAP; T-piece trial passed and was extubated shortly after arrival. Now on oxymask with 4L O2 and denies any sob; breathing comfortably On oxymask 4L (wean as tolerated for O2 sat > 92%) Renal: Cr at baseline ~ 1.5; Cr this AM 1.8 UA negative Ricks in place with adequate urine output ID: No known infectious etiology Afebrile; WBC 9.8 Received a dose of ancep 1000mg in the OR Endocrine: BSG 92 At home: on Prednisone 5mg daily Started on Hydrocortisone 50mg IV Q8H prior to ICU arrival Heme: mildly anemic H/H 12.8/38.5. Baseline Hgb ~ 13; plt 240 No concern for bleeding at this time Monitor CBC Electrolytes: within normal limits Monitor BMP Nutrition/GI: Regular diet Takes omeprazole 20mg BID at home On pantoprazole 20mg BID IV access: R arm peripheral IV DVT prophylaxis: Lovenox 40mg Q24H CCT: 45 minutes independent of any procedures Thank you for including us in the care of this patient. Please refer to Dr. Fang's addendum for further recommendations. Resident Physician Supervision Note: I was present with [Name of resident Dr. Angulo during the history and exam. I discussed the case with the resident and agree with the findings and plan as documented in the note. Any exceptions or clarifications are listed here: He was noted to have left upper extremity weakness after extubation. This has happened before but did not last very long. Some history of neck OA complaints. Given slow recovery will explore image and question of alternative pathology that could prolong recovery after paralytic treatment. Documented By: Kamran Fang Resident Involvement: Resident Care Provided Care Provided: Adult Hospital Medicine
[2017-11-29] MEDS ORDERED: NITROGLYCERIN 0.4 MG SL PER TAB CHARGE UT PRN (16:15)
--- NOTE | 2017-11-29 16:55 | Medical Consult ---
Consultation Date of Consultation: Nov 29, 2017. Attending Physician: Tushar Cerna M.D. Reason for Consultation: Post-op medical management History of Present Illness This is an 82yo M with a PMH of CAD (s/p CABG x 4 in Jun 2016), HTN, HLD, RA and BPH who is POD #0 s/p incarcerated umbilical hernia repair and partial small bowel resection. Patient was in normal state of health until last night around 10pm, when he was awakened with abdominal pain. Describes pain as 8/10 steady, dull umbilical pain. Noticed a lump near umbilicus as well as some discoloration, so came to ED with for further evaluation. Had an abdominal CT with SBO 2/2 to umbilical hernia with short loop of bowel concerning for strangulation. Dr. Cerna was consulted and patient underwent emergent hernia repair with partial small bowel resection. Denies any fever, chills, lightheadedness, headache, chest pain, SOB, nausea, vomiting, melena, hematochezia, dysuria or LE swelling. Post-operatively, patient was transferred to ICU due to L-sided weakness and lethargy. Soon after arrival, patient was successfully extubated and able to follow commands. Continues to have weakness of the left hand and forearm. Denies experiencing this prior to surgery. No confusion, slurred speech, facial droop or weakness/tingling of other extremities. MRI brain and acetyl receptor antibody tests are pending. Past Medical/Surgical History Medical Problems: (1) BPH (benign prostatic hyperplasia) Status: Chronic (2) CAD (coronary artery disease) Permanent Comment: s/p CABG x 4 in Jun 2016 Status: Chronic (3) HLD (hyperlipidemia) Status: Chronic (4) HTN (hypertension) Status: Chronic Surgical Problems: (1) History of lumbosacral spine surgery Status: Chronic (2) S/P bilateral inguinal hernia repair Status: Chronic Social History Smoking Status: Former Smoker Smokeless Tobacco Use: No Alcohol Use: none Drug Use: none Marital Status: Housing Status: lives with family Occupation Status: retired Allergies Coded Allergies: Iodinated Diagnostic Agents (Verified Allergy, Unknown, HIVES, 11/29/17) Sulfa Antibiotics (Verified Allergy, Unknown, HIVES, 11/29/17) Dutasteride (Unverified Adverse Reaction, Unknown, Skin lesions, 11/29/17) Home Medications Reported Home Medications Medications Dose Route/Sig Max Daily Dose Days Date Category Dose Instructions Citracal Calcium+D Slow R (Calcium-Magnesium W/ Vitamin D) 1 Tab Tab 1 Tab PO DAILY 01/12/17 Reported Lopressor (Metoprolol Tartrate) 25 Mg Tab 25 Mg PO BID 01/11/17 Reported Lipitor (Atorvastatin Calcium) 40 Mg Tab 40 Mg PO HS 01/11/17 Reported Aspirin EC Low Dose (Aspirin) 81 Mg Ectab 81 Mg PO QAM 30 07/13/16 Rx Nitrostat (Nitroglycerin) 0.4 Mg Tab 0.4 Mg UT UD PRN 07/13/16 Reported Prednisone 5 Mg Tab 5 Mg PO DAILY 07/13/16 Reported Centrum Silver (Multiple Vitamins W/ Minerals) 1 Chw Chw 1 Tab PO DAILY 03/19/13 Reported Folvite (Folic Acid) 1 Mg Tab 1 Mg PO 6XWK 03/19/13 Reported NONE ON SUNDAYS Prilosec (Omeprazole) 20 Mg Capcr 20 Mg PO DAILY 03/19/13 Reported Methotrexate 2.5 Mg Tab 10 Mg PO WK 03/19/13 Reported SUNDAY Current Inpatient Medications Current Inpatient Medications Medications (Trade) Dose Ordered Sig/Yandel Route Start Time Stop Time Status Last Admin Dose Admin Oxycodone/ Acetaminophen (Percocet 5-325mg Tab) 1 tab Q4H PRN PO 11/29/17 06:30 12/13/17 06:29 Morphine Sulfate (MoRPHine SULFATE INJ) 2 mg Q1H PRN IV 11/29/17 06:30 12/13/17 06:29 11/29/17 11:36 2 MG Potassium Chloride/Dextrose/ Sod Cl 1,000 ml @ 80 mls/hr [id number] IV 11/29/17 09:45 12/29/17 09:44 11/29/17 09:51 80 MLS/HR Enoxaparin Sodium (Lovenox Inj) 40 mg Q24H SQ 11/30/17 06:30 12/30/17 06:29 UNV Hydrocortisone Sodium Succinate 50 mg/Syringe 1 ml @ 4 mls/min Q8 IV 11/29/17 14:00 11/29/17 22:01 11/29/17 13:46 4 MLS/MIN Metoprolol Tartrate (Lopressor Tab) 25 mg BID PO 11/29/17 21:00 12/29/17 20:59 UNV Pantoprazole Sodium (Protonix Tab) 20 mg BID PO 11/29/17 21:00 12/29/17 20:59 UNV Atorvastatin Calcium (Lipitor Tab) 40 mg HS PO 11/29/17 21:00 12/29/17 20:59 UNV Folic Acid (Folvite Tab) 1 mg [id number] PO 11/29/17 16:15 12/29/17 16:14 UNV Metoprolol Tartrate (Lopressor Tab) 25 mg BID PO 11/29/17 21:00 12/29/17 20:59 UNV Nitroglycerin (Nitrostat Tab) 0.4 mg UD PRN UT 11/29/17 16:15 12/29/17 16:14 UNV Non-Formulary Medication (Calcium-Magnesium W/ Vitamin D (Citracal Calcium+D Slow R)) 1 tab DAILY PO 11/30/17 09:00 12/30/17 08:59 UNV Non-Formulary Medication (Multiple Vitamins W/ Minerals (Centrum Silver)) 1 tab DAILY PO 11/30/17 09:00 12/30/17 08:59 UNV Non-Formulary Medication (Omeprazole (Prilosec)) 20 mg DAILY PO 11/30/17 09:00 12/30/17 08:59 UNV Review of Systems Ten systems reviewed and negative except as noted in the HPI. Physical Exam Date Time Temp Pulse Resp B/P (MAP) Pulse Ox O2 Delivery O2 Flow Rate FiO2 11/29/17 16:01 75 159/62 (102) 96 11/29/17 16:00 98 Oxymask 2.0 11/29/17 16:00 73 96 11/29/17 15:30 67 97 11/29/17 15:01 71 130/64 (80) 96 11/29/17 15:00 73 96 11/29/17 14:30 67 94 11/29/17 14:01 68 133/65 (89) 96 11/29/17 14:01 68 133/65 (89) 96 11/29/17 14:00 68 96 11/29/17 13:30 66 97 11/29/17 13:01 75 133/51 (75) 95 11/29/17 12:30 65 93 11/29/17 12:15 67 96 11/29/17 12:01 74 129/77 (87) 91 11/29/17 12:00 99 Oxymask 2.0 11/29/17 12:00 71 93 11/29/17 11:45 70 92 11/29/17 11:30 70 91 11/29/17 11:15 73 93 11/29/17 11:01 61 132/64 (86) 97 11/29/17 11:01 61 132/64 (86) 97 11/29/17 11:00 61 96 11/29/17 11:00 61 96 11/29/17 10:45 70 97 11/29/17 10:30 63 95 11/29/17 10:15 60 92 11/29/17 10:01 63 104/54 (72) 94 11/29/17 10:00 62 91 11/29/17 09:45 62 92 11/29/17 09:30 74 92 11/29/17 09:30 74 92 11/29/17 09:26 86 137/72 (93) 92 11/29/17 09:21 87 140/79 (99) 93 11/29/17 09:16 69 128/62 (90) 93 11/29/17 09:15 65 95 11/29/17 09:11 68 129/66 (88) 94 11/29/17 09:06 78 152/83 (114) 96 11/29/17 09:02 85 144/65 (97) 95 11/29/17 09:00 68 94 11/29/17 08:56 69 124/63 (86) 95 11/29/17 08:51 74 157/72 (104) 95 11/29/17 08:46 91 0 167/84 (108) 93 11/29/17 08:45 94 0 93 11/29/17 08:41 71 9 156/71 (98) 95 11/29/17 08:41 71 9 156/71 (99) 95 11/29/17 08:36 78 14 179/91 (126) 96 11/29/17 08:36 78 14 179/91 (120) 96 11/29/17 08:31 81 8 157/79 (96) 96 11/29/17 08:31 81 8 157/79 (105) 96 11/29/17 08:30 80 10 97 11/29/17 08:30 80 10 97 11/29/17 08:26 69 8 162/72 (102) 96 11/29/17 08:21 67 8 156/68 (97) 95 11/29/17 08:16 73 9 154/67 (96) 96 11/29/17 08:15 67 5 94 11/29/17 08:13 36.5 64 12 154/67 95 Mechanical Ventilator 50 11/29/17 08:11 66 9 143/66 (91) 93 11/29/17 08:06 146/66 (92) 11/29/17 07:51 50 11/29/17 07:50 36.5 67 12 164/74 (92) 94 Mechanical Ventilator 10 50 11/29/17 07:40 36.4 69 13 165/72 (98) 94 Mechanical Ventilator 50 11/29/17 07:30 36.0 69 15 164/74 (108) 94 Mechanical Ventilator 50 11/29/17 07:20 74 16 179/80 94 Mechanical Ventilator 50 11/29/17 07:10 71 15 173/75 93 Mechanical Ventilator 50 11/29/17 07:00 82 24 203/94 93 Mechanical Ventilator 50 11/29/17 06:54 36.0 95 20 229/120 87 T-piece 10 11/29/17 04:34 60 18 199/80 98 11/29/17 04:10 60 18 199/80 98 11/29/17 03:00 55 18 179/80 99 Room Air 11/29/17 02:00 53 18 150/74 95 Room Air 11/29/17 01:00 56 16 149/71 98 Room Air 11/28/17 23:59 36.3 62 18 192/93 98 Room Air General Appearance: no apparent distress Head: normocephalic, atraumatic Eyes: normal inspection, PERRL, sclerae normal ENT: normal ENT inspection, hearing grossly normal, pharynx normal Neck: supple, thyroid normal, trachea midline Respiratory/Chest: chest non-tender, lungs clear, normal breath sounds, no respiratory distress, no accessory muscle use Cardiovascular: regular rate, rhythm, no murmur, normal peripheral pulses Abdomen/GI: soft, + tenderness, + pertinent finding (Umbilical dressing in place. Clean, dry, intact. ) Genitourinary - Male: + pertinent finding (Enriquez ) Extremities/Musculoskelatal: normal inspection, no calf tenderness, no pedal edema, + pertinent finding (R BKA ) Neurologic/Psych: tire man II-XII nml as tested, alert, normal mood/affect, oriented x 3, + motor weakness (4/5 BELÉN of L arm and forearm. Marked weakness of L hand with contraction. Passive extension of L arm with spasticity) Laboratory Results Last 24 Hours Test 11/29/17 00:30 11/29/17 00:55 11/29/17 10:45 White Blood Count 9.84 K/uL Red Blood Count 3.80 M/uL Hemoglobin 12.8 g/dL Hematocrit 38.5 % Mean Corpuscular Volume 101.3 fL Mean Corpuscular Hemoglobin 33.7 pg Mean Corpuscular Hemoglobin Concent 33.2 g/dl Platelet Count 240 K/uL Mean Platelet Volume 10.4 fL Neutrophils (%) (Auto) 70.9 % Lymphocytes (%) (Auto) 20.0 % Monocytes (%) (Auto) 6.8 % Eosinophils (%) (Auto) 1.8 % Basophils (%) (Auto) 0.3 % Neutrophils # (Auto) 6.97 K/uL Lymphocytes # (Auto) 1.97 K/uL Monocytes # (Auto) 0.67 K/uL Eosinophils # (Auto) 0.18 K/uL Basophils # (Auto) 0.03 K/uL RDW Standard Deviation 55.4 fL RDW Coefficient of Variation 15.3 % Immature Granulocyte % (Auto) 0.2 % Immature Granulocyte # (Auto) 0.02 K/uL Sodium Level 142 mmol/L Potassium Level 4.7 mmol/L Chloride Level 111 mmol/L Carbon Dioxide Level 23 mmol/L Anion Gap 8.0 mmol/L Blood Urea Nitrogen 39 mg/dl Creatinine 1.80 mg/dl Est Creatinine Clear Calc Drug Dose 28.1 ml/min Estimated GFR () 40.3 Estimated GFR (Non- 34.8 BUN/Creatinine Ratio 21.5 Random Glucose 92 mg/dl Calcium Level 8.8 mg/dl Total Bilirubin 0.7 mg/dl Direct Bilirubin 0.2 mg/dl Aspartate Amino Transf (AST/SGOT) 19 U/L Alanine Aminotransferase (ALT/SGPT) 26 U/L Alkaline Phosphatase 67 U/L Total Protein 6.7 gm/dl Albumin 3.7 gm/dl Urine Color YELLOW Urine Appearance CLEAR Urine pH 8.0 Urine Specific [place] 1.017 Urine Protein TRACE Urine Glucose (UA) NEG Urine Ketones NEG Urine Occult Blood NEG Urine Nitrite NEG Urine Bilirubin NEG Urine Urobilinogen NEG Urine Leukocyte Esterase NEG Urine WBC (Auto) 0 /hpf Urine RBC (Auto) 0-4 /hpf Urine Hyaline Casts (Auto) 0 /lpf Urine Epithelial Cells (Auto) 0-5 /lpf Urine Bacteria (Auto) NEG Assessment & Plan This is an 82yo M with a PMH of CAD (s/p CABG x 4 in Jun 2016), HTN, HLD, RA and BPH who is POD #0 s/p incarcerated umbilical hernia repair and partial small bowel resection. Incarcerated umbilical hernia, SBO: -POD#0 s/p hernia repair and small bowel resection -Per general surgery for pain control, diet, wound care, anticoagulation and activities -Successfully extubated, now on Oxymax. Per commercial loan collection officer for respiratory management LUE weakness: -Mostly in hand, some spasticity in forearm -L hand contracted -MRI brain pending for stroke rule out -Acetylcholine receptor block Ab pending to rule out Myasthenia gravis -EEG to rule out atypical seizure -Neuro consulted CAD (s/p CABG x 4 in Jun 2016): -Recommend resuming baby aspirin once surgery feels it appropriate -Cont statin HTN: -Cont metoprolol RA: -Hold home dose prednisone, methotrexate -On IV hydrocortisone presently DVT Ppx: SQ lovenox Code status: FULL PCP: Ly ([facility] [place]) Dispo: Admitted to ICU. Discharge per primary team Patient seen in collaboration with Dr. Ledesma. Please see addendum. Thank you for this consultation. We will follow the patient with you during their hospital stay. You can reach a [facility] via pager @ [phone]. ATTENDING ADDENDUM: Patient seen and examined care coordinated with Zaynab Foy PA-C 84-year-old male with history of coronary artery disease, hypertension, rheumatoid arthritis underwent emergent surgery today for strangulated umbilical hernia. Postoperativelypatient developed left-sided weakness, Medicine service consulted for evaluation. PHYSICAL EXAM: Please refer to the physical exam by Zaynab Foy PA-C ASSESSMENT AND PLAN: Left upper extremity weakness: Developed postop, after recovering from anesthesia Rule out acute CVA MRI of brain ordered, neurology consulted Due to recent surgery/postop status- antiplatelet not ordered Plan of care discussed with on-call commercial loan collection officer Incarcerated umbilical hernia: Status post surgery with small bowel resection today Postoperative day 0 postop care per surgery Need to discussed with surgery, antiplatelet treatment if MRI scan shows acute CVA Please refer to documentation by Zaynab Foy PA-C for further discussion of other issues Keisha Ledesma MD
[2017-11-29] MEDS ORDERED: PROCHLORPERAZINE INJ 5 MG in SYRINGE 4 ML IV ONE (20:00)
[2017-11-29] MEDS ORDERED: METOPROLOL TARTRATE 25 MG TAB PO SCH (21:00)
[2017-11-29] MEDS: ATORVASTATIN 40 MG TAB PO SCH (21:14)
[2017-11-29] MEDS: PANTOprazole SOD 40 MG TAB PO SCH (21:15)
[2017-11-29] MEDS: METOPROLOL TARTRATE 25 MG TAB PO SCH (21:17)
--- NOTE | 2017-11-29 21:22 | DIAGNOSTIC IMAGING REPORT ---
BRAIN WITHOUT CONTRAST HISTORY: 82 years-old Male left upper ext weakness acute left upper extremity weakness with abdominal herniorrhaphy COMPARISON: None available TECHNIQUE: Multiplanar multisequence MRI of the brain was obtained without contrast FINDINGS: The large [id number] screen making supervisor localizer images demonstrate no gross abnormality. There are multiple areas (at least 6 focal areas) of cortically based restricted diffusion within the right cerebral hemisphere involving the frontal and parietal lobes with largest focus of restricted diffusion measuring 2.1 cm within the right frontal lobe, image 21 series 5 with largest focus of restricted diffusion in the posterior right parietal lobe measuring 1.4 cm on image 19 of series 5. These areas demonstrate decreased signal on the ADC map and mildly increased T2/FLAIR signal without evidence of hemorrhage, significant mass effect or midline shift. There is no hydrocephalus or intracranial mass. There is moderate atrophy with ex vacuo ventriculomegaly. Patchy areas of increased T2/FLAIR signal within the white matter of the cerebral and measures bilaterally suggest mild chronic microvascular ischemic changes. The major flow voids at the level of the skull base are patent. Bilateral mastoid effusions. At least moderate mucosal thickening of the sphenoid sinuses with areas of moderate to severe mucosal thickening of the ethmoid air cells. Mild mucosal thickening of the inferior maxillary sinuses bilaterally. Thinning of the optic lenses bilaterally. Scalp, calvarium and soft tissues are unremarkable. IMPRESSION: 1. Multiple areas of restricted diffusion within the right cerebral hemisphere involving the frontal and parietal lobes with foci measuring up to 2.1 cm in greatest dimension with associated mildly increased T2/FLAIR signal compatible with areas of acute to subacute infarction. No significant mass effect, midline shift or hemorrhage. 2. Atrophy with mild chronic microvascular ischemic changes. 3. Bilateral mastoid effusions with paranasal sinus disease as above. The above report was generated using voice recognition software. It may contain grammatical, syntax or spelling errors. Electronically signed by: Trace Baptiste M.D. 11/29/2017 9:20 PM Dictated Date/Time: 11/29/2017 9:12 PM
[2017-11-30] VITALS (30 sets, daily range): BP systolic 88–168; BP diastolic 60–102; PULSE 55–73; TEMP 36.4–37; O2SAT 88–99; Ht 165.1 cm; Wt 61.0 kg
[2017-11-30] MEDS: MoRPHine SULFATE 2 MG/ML CARP IV PRN (01:49)
[2017-11-30 06:17] LABS: HEMATOCRIT 33.3 % (42-52); HEMOGLOBIN 11.2 g/dL (14.0-18.0); MEAN CELL VOLUME 103.7 fL (80-100); MEAN CORPUSCULAR HEMOGLOBIN 34.9 pg (25-34); MEAN CORPUSCULAR HGB CONC 33.6 g/dl (32-36); MEAN PLATELET VOLUME 10.6 fL (7.4-10.4); PLATELET COUNT 172 K/uL (130-400); RED CELL DISTRIBUTION WIDTH CV 15.4 % (11.5-14.5); RED CELL DISTRIBUTION WIDTH SD 58.1 fL (36.4-46.3); WHITE BLOOD COUNT 12.53 K/uL (4.8-10.8)
[2017-11-30 06:38] LABS: INR 1.1 (0.9-1.1); PTT PATIENT 30.3 SECONDS (21.0-31.0)
[2017-11-30 06:47] LABS: BASO % 0.1 %; BASO ABS # 0.01 K/uL (0-0.2); IG# 0.04 K/uL (0.00-0.02); LYMPH % 4.4 %; LYMPH ABS # 0.55 K/uL (1.2-3.4); MONO % 9.1 %; MONO ABS # 1.14 K/uL (0.11-0.59); NEUT % 86.1 %; NEUT ABS # 10.79 K/uL (1.4-6.5)
[2017-11-30 06:53] LABS: CALCIUM 8.2 mg/dl (8.5-10.1); CREATININE 1.72 mg/dl (0.60-1.40); POTASSIUM 5.2 mmol/L (3.5-5.1)
[2017-11-30 06:54] LABS: PHOSPHORUS 3.3 mg/dl (2.5-4.9)
--- NOTE | 2017-11-30 07:33 | DIAGNOSTIC IMAGING REPORT ---
ULTRASOUND OF THE CAROTID ARTERIES CLINICAL HISTORY: Stroke. COMPARISON STUDY: No priors. TECHNIQUE: Real-time, grayscale, and color Doppler sonography of the carotid arteries is performed. Images are reviewed in the transverse and longitudinal planes. FINDINGS: Blood pressure in the right arm measures 165/84 and blood pressure in the left arm measures 138/64. The carotid arteries are patent bilaterally and demonstrate antegrade flow. There is advanced atherosclerotic plaque seen bilaterally. Normal doppler arterial waveforms are seen throughout. Velocity measurements are listed below. Common carotid peak systolic velocity (cm/sec): RIGHT: 79 LEFT: 117 ICA proximal peak systolic velocity (cm/sec): RIGHT: 325 LEFT: 317 ICA mid peak systolic velocity (cm/sec): RIGHT: 190 LEFT: 227 ICA distal peak systolic velocity (cm/sec): RIGHT: 71 LEFT: 97 ICA/CC peak systolic ratio: RIGHT: 4.1 LEFT: 2.7 Antegrade flow was shown in the vertebral arteries. The external carotid arteries are patent. The subclavian arteries are patent with normal direction of flow. IMPRESSION: 1. There is evidence of greater than 70% stenosis involving the proximal right internal carotid artery by velocity criteria. 2. There is evidence of greater than 70% stenosis in the proximal left internal carotid artery by velocity criteria. 3. Antegrade flow is shown in the vertebral arteries. Electronically signed by: Daryl Pathak M.D. 11/30/2017 7:31 AM Dictated Date/Time: 11/30/2017 7:27 AM
[2017-11-30] MEDS: METOPROLOL TARTRATE 25 MG TAB PO SCH ×2 (08:14→20:15)
[2017-11-30] MEDS: PANTOprazole SOD 40 MG TAB PO SCH ×2 (08:16→20:15)
[2017-11-30] MEDS: CEROVITE ADV FORMULA TAB PO SCH (08:16)
--- NOTE | 2017-11-30 08:57 | Clinical Documentation Query ---
CLINICAL DOCUMENTATION QUERY 82 year old male who is s/p repair of incarcerated umbilical hernia. PRP reveals BUN 36, Creatinine 1.72, GFR 20.9, this appear to be patient's baseline per historical laboratory review. In your clinical opinion is this patient being managed for: Depends on what you mean by managed. He appears to be at baseline. No new therapy required. ( ) CKD stage 4 ( ) Not Agree ( ) Other explanation of clinical findings (Please Explain) ( ) Unable to determine (Please Define) ( ) Need to Discuss The medical record reflects the following clinical findings, treatment, and risk factors. Clinical Indicators: As above. Treatment: IVF's, daily PRP's, Risk Factors: Age, HTN, BPH Please clarify and document your clinical opinion in the progress notes and discharge summary. Terms such as "probable", "suspected", "likely", "questionable", "possible", or "still to be ruled out" are acceptable. IF IN AGREEMENT, YOU MUST DOCUMENT ABOVE DIAGNOSTIC STATEMENT IN DAILY PROGRESS NOTES AND DISCHARGE SUMMARY. This document is not part of the patient's record. Chronic Kidney Disease (CKD), stages 1-5. Documenting the stage of CKD will improve data integrity and will help clarify vague terms such as "renal insufficiency" or "chronic renal failure." The stages of CKD according to the [employer] are as follows: Stage I: GFR >90 Stage II: GFR 60-89 Stage III: GFR 30-59 Stage IV: GFR 15-29 Stage V: GFR <15 Thank You, Anshul Ramirez, RN [phone]
[2017-11-30] MEDS ORDERED: [UNRECOGNIZED DRUG - OTHER] PO SCH (09:00)
[2017-11-30] MEDS ORDERED: NON-FORMULARY MEDICATION (Omeprazole (Prilosec) 20 MG) PO SCH (09:00)
[2017-11-30] MEDS ORDERED: VITAMIN D PO SCH (09:00)
[2017-11-30] MEDS ORDERED: CALCIUM MAGNESIUM PO SCH (09:00)
--- NOTE | 2017-11-30 09:02 | Clinical Documentation Query ---
CLINICAL DOCUMENTATION QUERY 82 year old male who is s/p repair of incarcerated umbilical hernia. PRP reveals BUN 36, Creatinine 1.72, GFR 20.9, this appear to be patient's baseline per historical laboratory review. In your clinical opinion is this patient being managed for: ( x ) CKD stage 4 ( ) Not Agree ( ) Other explanation of clinical findings (Please Explain) ( ) Unable to determine (Please Define) ( ) Need to Discuss The medical record reflects the following clinical findings, treatment, and risk factors. Clinical Indicators: As above. Treatment: IVF's, daily PRP's, Risk Factors: Age, HTN, BPH Please clarify and document your clinical opinion in the progress notes and discharge summary. Terms such as "probable", "suspected", "likely", "questionable", "possible", or "still to be ruled out" are acceptable. IF IN AGREEMENT, YOU MUST DOCUMENT ABOVE DIAGNOSTIC STATEMENT IN DAILY PROGRESS NOTES AND DISCHARGE SUMMARY. This document is not part of the patient's record. Chronic Kidney Disease (CKD), stages 1-5. Documenting the stage of CKD will improve data integrity and will help clarify vague terms such as "renal insufficiency" or "chronic renal failure." The stages of CKD according to the [employer] are as follows: Stage I: GFR >90 Stage II: GFR 60-89 Stage III: GFR 30-59 Stage IV: GFR 15-29 Stage V: GFR <15 Thank You, Anshul Ramirez, RN [phone]
[2017-11-30] MEDS ORDERED: ASPIRIN 81 MG ECTAB PO STA (09:33)
--- NOTE | 2017-11-30 11:16 | Neurology Consultation ---
Neurology Consultation Date of Consultation: Nov 30, 2017. Attending Physician: Tushar Cerna M.D. Primary Care Physician: Lamar Modi M.D. Reason for Consultation: left arm weakness History of Present Illness Source: patient Anjel is an 82 year old male with a PMH of CAD (s/p CABG x 4 in Jun 2016), HTN, HLD, RA and BPH who s/p incarcerated umbilical hernia repair and partial small bowel resection 11/29/2017. The night prior he was awakened with abdominal pain 8/10 steady, dull umbilical pain with a lump near umbilicus as well as some discoloration, so came to ED with for further evaluation. It was discovered he had an umbilical hernia with short loop of bowel concerning for strangulation. He underwent emergent hernia repair with partial small bowel resection. He states after surgery he had left UE weakness. He has chronic LE weakness and he is unsure if it is different than prior to surgery. After his CABG in 2015 he was placed on aspirin 81 mg and was told to stay on that for life. He has a history of GI ulcer so he was never on any other platlet therapy. He has severe OA and but is unable to take any NSAIDS because of the stomach ulcer in the past he did but had alot of pain. Denies any fever, chills, lightheadedness, headache, chest pain, SOB, nausea, vomiting, melena, hematochezia, dysuria or LE swelling. Past Medical/Surgical History Medical Problems: (1) Abscess Status: Acute (2) Cellulitis and abscess of leg Status: Acute (3) Incarcerated umbilical hernia Status: Acute Social History Smoking Status: Former smoker Smokeless Tobacco Use: No Alcohol Use: none Drug Use: none Marital Status: Housing Status: lives with family Occupation Status: retired Allergies Coded Allergies: Iodinated Diagnostic Agents (Verified Allergy, Unknown, HIVES, 11/29/17) Sulfa Antibiotics (Verified Allergy, Unknown, HIVES, 11/29/17) Dutasteride (Unverified Adverse Reaction, Unknown, Skin lesions, 11/29/17) Current Inpatient Medications Current Inpatient Medications Medications (Trade) Dose Ordered Sig/Yandel Route Start Time Stop Time Status Last Admin Dose Admin Oxycodone/ Acetaminophen (Percocet 5-325mg Tab) 1 tab Q4H PRN PO 11/29/17 06:30 12/13/17 06:29 Morphine Sulfate (MoRPHine SULFATE INJ) 2 mg Q1H PRN IV 11/29/17 06:30 12/13/17 06:29 11/30/17 01:49 2 MG Potassium Chloride/Dextrose/ Sod Cl 1,000 ml @ 80 mls/hr [id number] IV 11/29/17 09:45 12/29/17 09:44 11/29/17 21:13 80 MLS/HR Enoxaparin Sodium (Lovenox Inj) 30 mg QAM SQ 11/30/17 09:00 12/30/17 08:59 Metoprolol Tartrate (Lopressor Tab) 25 mg BID PO 11/29/17 21:00 12/29/17 20:59 11/30/17 08:14 25 MG Pantoprazole Sodium (Protonix Tab) 20 mg BID PO 11/29/17 21:00 12/29/17 20:59 11/30/17 08:16 20 MG Atorvastatin Calcium (Lipitor Tab) 40 mg HS PO 11/29/17 21:00 12/29/17 20:59 11/29/17 21:14 40 MG Folic Acid (Folvite Tab) 1 mg [id number] PO 11/29/17 17:00 12/29/17 16:59 11/29/17 17:24 1 MG Nitroglycerin (Nitrostat Tab) 0.4 mg UD PRN UT 11/29/17 16:15 12/29/17 16:14 Multivitamins/ Minerals (Multivitamin W/ Minerals Tab) 1 tab DAILY PO 11/30/17 09:00 12/30/17 08:59 11/30/17 08:16 1 TAB Aspirin (Ecotrin Tab) 81 mg QAM PO 12/01/17 09:00 12/31/17 08:59 Physical Exam Vital Signs (Past 24 Hrs): Date Time Temp Pulse Resp B/P (MAP) Pulse Ox O2 Delivery O2 Flow Rate FiO2 11/30/17 09:01 68 88/77 (81) 96 11/30/17 09:00 69 98 11/30/17 08:01 67 18 166/77 (106) 96 Room Air 11/30/17 08:00 68 97 11/30/17 08:00 96 Nasal Cannula 2.0 11/30/17 07:01 55 136/64 (88) 97 11/30/17 07:00 57 99 11/30/17 06:01 64 143/67 (92) 98 11/30/17 05:01 36.4 65 143/62 (89) 97 11/30/17 04:01 64 18 138/64 (88) 97 11/30/17 04:00 96 Nasal Cannula 2.0 11/30/17 03:01 65 18 143/62 (89) 97 11/30/17 02:01 73 20 144/70 (94) 94 11/30/17 01:01 69 18 166/77 (106) 96 11/30/17 00:01 36.5 71 18 143/68 (93) 94 Nasal Cannula 2.0 11/30/17 00:01 71 20 143/68 (93) 94 11/29/17 23:59 96 Nasal Cannula 2.0 11/29/17 23:01 69 20 157/69 (98) 97 11/29/17 22:01 71 18 142/63 (89) 95 11/29/17 20:01 36.7 81 20 135/75 (95) 95 Nasal Cannula 2.0 11/29/17 20:00 96 Nasal Cannula 2.0 11/29/17 18:01 70 160/72 (109) 96 11/29/17 18:00 70 96 11/29/17 17:01 68 137/61 (85) 97 11/29/17 17:00 70 95 11/29/17 16:01 75 159/62 (102) 96 11/29/17 16:01 75 159/62 (102) 96 11/29/17 16:00 98 Oxymask 2.0 11/29/17 16:00 73 96 11/29/17 16:00 73 96 11/29/17 15:30 67 97 11/29/17 15:01 71 130/64 (80) 96 11/29/17 15:00 73 96 11/29/17 14:30 67 94 11/29/17 14:01 68 133/65 (89) 96 11/29/17 14:01 68 133/65 (89) 96 11/29/17 14:00 68 96 11/29/17 13:30 66 97 11/29/17 13:01 75 133/51 (75) 95 11/29/17 12:30 65 93 11/29/17 12:15 67 96 11/29/17 12:01 74 129/77 (87) 91 11/29/17 12:00 99 Oxymask 2.0 11/29/17 12:00 71 93 11/29/17 11:45 70 92 11/29/17 11:30 70 91 11/29/17 11:15 73 93 11/29/17 11:01 61 132/64 (86) 97 11/29/17 11:01 61 132/64 (86) 97 11/29/17 11:00 61 96 11/29/17 11:00 61 96 Physical Exam: Constitutional: appearance nourished, healthy and normal Ears, Nose, Mouth and Throat: mucous membranes moist, no injection and skin normal, eyes normal Cardiovascular: normal S-1 and S-2 and regular rate and rhythm Respiratory: course breath sounds Musculoskeletal: no peripheral edema and decreased left LE pulses, RLE below knee amputation Skin: no stigmata of neurocutaneous disease noted and normal and intact Eyes: extraocular muscles intact (EOMI) and pupils equal, round and reactive to light (PERRL) NEUROLOGIC EXAMINATION: Mental status: Alert and interactive Oriented to full date and location, [facility], 2018, Trump president Oriented to person Speech fluent with no evidence of aphasia Cranial Nerves smile slight flattening or nasolabial fold on left, eye brow raise symmetric Reflexes: Deep tendon reflexes were symmetrical and graded 2/5. Plantar responses neutral left Sensory: decrease sensation LLE with vibration and cool touch Coordination: finger to nose with dysmetric left Gait/Stance: Posture lying in bed able to boost self up in bed without assistance Motor: left arm pronator drift Strength: left arm 3/5 hand marina manager bicep, 5/5 triceps, 4/5 deltoid, left LE 3/5 hip flex absent plantar flex right arm 5/5 hand marina manager biceps triceps deltoids, right leg hip flex 5/5 Laboratory Results Past 24 Hours: 11/30/17 05:58 Red Blood Count 3.21, Mean Corpuscular Volume 103.7, Mean Corpuscular Hemoglobin 34.9, Mean Corpuscular Hemoglobin Concent 33.6, Mean Platelet Volume 10.6, Neutrophils (%) (Auto) 86.1, Lymphocytes (%) (Auto) 4.4, Monocytes (%) ( Auto) 9.1, Eosinophils (%) (Auto) 0.0, Basophils (%) (Auto) 0.1, Neutrophils # ( Auto) 10.79, Lymphocytes # (Auto) 0.55, Monocytes # (Auto) 1.14, Eosinophils # ( Auto) 0.00, Basophils # (Auto) 0.01 11/30/17 05:58 Test 11/29/17 21:10 11/30/17 05:58 Bedside Glucose 178 mg/dl (70-99) White Blood Count 12.53 K/uL (4.8-10.8) Red Blood Count 3.21 M/uL (4.7-6.1) Hemoglobin 11.2 g/dL (14.0-18.0) Hematocrit 33.3 % (42-52) Mean Corpuscular Volume 103.7 fL (80-100) Mean Corpuscular Hemoglobin 34.9 pg (25-34) Mean Corpuscular Hemoglobin Concent 33.6 g/dl (32-36) Platelet Count 172 K/uL (130-400) Mean Platelet Volume 10.6 fL (7.4-10.4) Neutrophils (%) (Auto) 86.1 % Lymphocytes (%) (Auto) 4.4 % Monocytes (%) (Auto) 9.1 % Eosinophils (%) (Auto) 0.0 % Basophils (%) (Auto) 0.1 % Neutrophils # (Auto) 10.79 K/uL (1.4-6.5) Lymphocytes # (Auto) 0.55 K/uL (1.2-3.4) Monocytes # (Auto) 1.14 K/uL (0.11-0.59) Eosinophils # (Auto) 0.00 K/uL (0-0.5) Basophils # (Auto) 0.01 K/uL (0-0.2) RDW Standard Deviation 58.1 fL (36.4-46.3) RDW Coefficient of Variation 15.4 % (11.5-14.5) Immature Granulocyte % (Auto) 0.3 % Immature Granulocyte # (Auto) 0.04 K/uL (0.00-0.02) Macrocytosis PRESENT Ovalocytes 1+ Prothrombin Time 12.0 SECONDS (9.0-12.0) Prothromb Time International Ratio 1.1 (0.9-1.1) Activated Partial Thromboplast Time 30.3 SECONDS (21.0-31.0) Partial Thromboplastin Ratio 1.2 Anion Gap 5.0 mmol/L (3-11) Est Creatinine Clear Calc Drug Dose 29.6 ml/min Estimated GFR () 42.6 Estimated GFR (Non- 36.7 BUN/Creatinine Ratio 20.9 (10-20) Calcium Level 8.2 mg/dl (8.5-10.1) Phosphorus Level 3.3 mg/dl (2.5-4.9) Magnesium Level 2.0 mg/dl (1.8-2.4) Imaging carotid doppler- There is evidence of greater than 70% stenosis involving the proximal right internal carotid artery by velocity criteria. There is evidence of greater than 70% stenosis in the proximal left internal carotid artery by velocity criteria. Antegrade flow is shown in the vertebral arteries. MRI brain without- Multiple areas of restricted diffusion within the right cerebral hemisphere involving the frontal and parietal lobes with foci measuring up to 2.1 cm in greatest dimension with associated mildly increased T2/FLAIR signal compatible with areas of acute to subacute infarction. No significant mass effect, midline shift or hemorrhage. Atrophy with mild chronic microvascular ischemic changes. Bilateral mastoid effusions with paranasal sinus disease as above. Impression 82 year old male s/p umbilical hernia repair urgent with multiple foci stroke right with Left sided weakness Plan 1. carotid doppler 70 % stenosis - need for evaluation with vascular-anti plt therapy 2. TTE - for any ASD or vegetation 3. MRI - right frontal and parietal lobes with foci measuring up to 2.1 cm greatest size 4. PT/OT discharge needs 5. discussion of antiplatlet therapy patient may not tolerate plavix 6. out patient ZIO for any arrhythmias 7. DM/DL/HTN LDL < 70 8. further recommendations to follow I have seen and discussed above patient with Dr Tiffanie Yepez, neurology Pt seen and examined, chart reviewed. Pt was on asa up to time of emergent surgery. Anesthesia notes indicated that the pt had protracted hypotension and bradycardia post-induction which did not respond to pressors but ultimately responded to steroids. Pt was difficult to awaken post surgery also with genl weakness. Upon awakening his left arm was weak. MRI patchy watershed type R mca infarct. Carotid doppler greater than 70% stenosis in bl carotids. Pt indicates arm getting stronger. No neglect, denial. no right left confusion. No field cut , min if any facial asym, speech nml. LUE at most 3/5 in an upper motor neuron distribution. Minimal if any weakness of the LLE. Equal sensation. This infarct appears to be the combined effect of high grade carotid stenosis accompanied by hypoperfusion. P continue asa, avoid hypotension, echo, tele. Vascular surgery consultation for eval for R CEA. Likely this will need to wait 4 or so weeks as pt recovers from stroke and hernia repair. MIGUELANGEL Yepez MD
[2017-11-30] MEDS ORDERED: ASPIRIN 81 MG ECTAB PO ONE (11:27)
[2017-11-30] MEDS: ENOXAPARIN 30 MG/0.3 ML SYR SQ SCH (12:09)
--- NOTE | 2017-11-30 12:10 | Progress Note ---
Subjective Date of Service: Nov 30, 2017. 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 No pain; no abdominal pain no bleeding/bruising Problem List Medical Problems: (1) Abscess Status: Acute (2) Cellulitis and abscess of leg Status: Acute (3) Incarcerated umbilical hernia Status: Acute Review of Systems Constitutional: No fever, No chills Respiratory: No shortness of breath Cardiac: No chest pain Neurologic: + weakness (L hand weakness), + balance problems, No memory loss, No paralysis, No numbness/tingling, No vertigo Medications Current Inpatient Medications Medications (Trade) Dose Ordered Sig/Yandel Route Start Time Stop Time Status Last Admin Dose Admin Oxycodone/ Acetaminophen (Percocet 5-325mg Tab) 1 tab Q4H PRN PO 11/29/17 06:30 12/13/17 06:29 Morphine Sulfate (MoRPHine SULFATE INJ) 2 mg Q1H PRN IV 11/29/17 06:30 12/13/17 06:29 11/30/17 01:49 2 MG Potassium Chloride/Dextrose/ Sod Cl 1,000 ml @ 80 mls/hr [id number] IV 11/29/17 09:45 12/29/17 09:44 11/29/17 21:13 80 MLS/HR Enoxaparin Sodium (Lovenox Inj) 30 mg QAM SQ 11/30/17 09:00 12/30/17 08:59 Metoprolol Tartrate (Lopressor Tab) 25 mg BID PO 11/29/17 21:00 12/29/17 20:59 11/30/17 08:14 25 MG Pantoprazole Sodium (Protonix Tab) 20 mg BID PO 11/29/17 21:00 12/29/17 20:59 11/30/17 08:16 20 MG Atorvastatin Calcium (Lipitor Tab) 40 mg HS PO 11/29/17 21:00 12/29/17 20:59 11/29/17 21:14 40 MG Folic Acid (Folvite Tab) 1 mg MoTuWeThFrSa PO 11/29/17 17:00 12/29/17 16:59 11/29/17 17:24 1 MG Nitroglycerin (Nitrostat Tab) 0.4 mg UD PRN UT 11/29/17 16:15 12/29/17 16:14 Multivitamins/ Minerals (Multivitamin W/ Minerals Tab) 1 tab DAILY PO 11/30/17 09:00 12/30/17 08:59 11/30/17 08:16 1 TAB Aspirin (Ecotrin Tab) 81 mg QAM PO 12/01/17 09:00 12/31/17 08:59 Objective Vital Signs Date Time Temp Pulse Resp B/P (MAP) Pulse Ox O2 Delivery O2 Flow Rate FiO2 11/30/17 09:01 68 88/77 (81) 96 11/30/17 09:00 69 98 11/30/17 08:01 67 18 166/77 (106) 96 Room Air 11/30/17 08:00 68 97 11/30/17 08:00 96 Nasal Cannula 2.0 11/30/17 07:01 55 136/64 (88) 97 11/30/17 07:00 57 99 11/30/17 06:01 64 143/67 (92) 98 11/30/17 05:01 36.4 65 143/62 (89) 97 11/30/17 04:01 64 18 138/64 (88) 97 11/30/17 04:00 96 Nasal Cannula 2.0 11/30/17 03:01 65 18 143/62 (89) 97 11/30/17 02:01 73 20 144/70 (94) 94 11/30/17 01:01 69 18 166/77 (106) 96 11/30/17 00:01 36.5 71 18 143/68 (93) 94 Nasal Cannula 2.0 11/30/17 00:01 71 20 143/68 (93) 94 11/29/17 23:59 96 Nasal Cannula 2.0 11/29/17 23:01 69 20 157/69 (98) 97 11/29/17 22:01 71 18 142/63 (89) 95 11/29/17 20:01 36.7 81 20 135/75 (95) 95 Nasal Cannula 2.0 11/29/17 20:00 96 Nasal Cannula 2.0 11/29/17 18:01 70 160/72 (109) 96 11/29/17 18:00 70 96 11/29/17 17:01 68 137/61 (85) 97 11/29/17 17:00 70 95 11/29/17 16:01 75 159/62 (102) 96 11/29/17 16:01 75 159/62 (102) 96 11/29/17 16:00 98 Oxymask 2.0 11/29/17 16:00 73 96 11/29/17 16:00 73 96 11/29/17 15:30 67 97 11/29/17 15:01 71 130/64 (80) 96 11/29/17 15:00 73 96 11/29/17 14:30 67 94 11/29/17 14:01 68 133/65 (89) 96 11/29/17 14:01 68 133/65 (89) 96 11/29/17 14:00 68 96 11/29/17 13:30 66 97 11/29/17 13:01 75 133/51 (75) 95 11/29/17 12:30 65 93 11/29/17 12:15 67 96 11/29/17 12:01 74 129/77 (87) 91 11/29/17 12:00 99 Oxymask 2.0 11/29/17 12:00 71 93 11/29/17 11:45 70 92 11/29/17 11:30 70 91 11/29/17 11:15 73 93 Physical Exam General Appearance: no apparent distress Respiratory/Chest: chest non-tender, lungs clear, normal breath sounds, no respiratory distress, no accessory muscle use Cardiovascular: regular rate, rhythm, no edema, no murmur Extremities: + pertinent finding (R BKA) Neurologic/Psychiatric: alert, normal mood/affect, + motor weakness (L hand weakness) Laboratory Results Last 24 Hours Test 11/29/17 21:10 11/30/17 05:58 Bedside Glucose 178 mg/dl White Blood Count 12.53 K/uL Red Blood Count 3.21 M/uL Hemoglobin 11.2 g/dL Hematocrit 33.3 % Mean Corpuscular Volume 103.7 fL Mean Corpuscular Hemoglobin 34.9 pg Mean Corpuscular Hemoglobin Concent 33.6 g/dl Platelet Count 172 K/uL Mean Platelet Volume 10.6 fL Neutrophils (%) (Auto) 86.1 % Lymphocytes (%) (Auto) 4.4 % Monocytes (%) (Auto) 9.1 % Eosinophils (%) (Auto) 0.0 % Basophils (%) (Auto) 0.1 % Neutrophils # (Auto) 10.79 K/uL Lymphocytes # (Auto) 0.55 K/uL Monocytes # (Auto) 1.14 K/uL Eosinophils # (Auto) 0.00 K/uL Basophils # (Auto) 0.01 K/uL RDW Standard Deviation 58.1 fL RDW Coefficient of Variation 15.4 % Immature Granulocyte % (Auto) 0.3 % Immature Granulocyte # (Auto) 0.04 K/uL Macrocytosis PRESENT Ovalocytes 1+ Prothrombin Time 12.0 SECONDS Prothromb Time International Ratio 1.1 Activated Partial Thromboplast Time 30.3 SECONDS Partial Thromboplastin Ratio 1.2 Sodium Level 139 mmol/L Potassium Level 5.2 mmol/L Chloride Level 109 mmol/L Carbon Dioxide Level 25 mmol/L Anion Gap 5.0 mmol/L Blood Urea Nitrogen 36 mg/dl Creatinine 1.72 mg/dl Est Creatinine Clear Calc Drug Dose 29.6 ml/min Estimated GFR () 42.6 Estimated GFR (Non- 36.7 BUN/Creatinine Ratio 20.9 Random Glucose 150 mg/dl Calcium Level 8.2 mg/dl Phosphorus Level 3.3 mg/dl Magnesium Level 2.0 mg/dl Assessment and Plan This is an 82 year old male with a PMH of CAD s/p CABG x4, HTN, HLD, CKD stage 3 , hx. 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 * added back aspirin - okay with general surgery * continue Lipitor * PT/OT/speech ordered * carotid U/S done - 70% stenosis bilaterally * echo ordered * further management as per neurology Incarcerated Hernia Repair Partial Small Bowel Obstruction * s/p repair, POD #1 * as per general surgery, doing well; will start clears * advance diet as tolerated * pain is controlled, monitor H/H and electrolytes Carotid Artery Stenosis * bilateral carotid artery stenosis ~ 70% * no vascular intervention with recent CVA and recent incarcerated hernia repair * added back aspirin * continue statin CAD s/p CABG * s/p CABG x4 in June 2016 * will continue aspirin, statin, b-anabel * no active chest pain, no acute issues noted Leukocytosis * unlikely infectious - stress related to surgery + steroid use * will monitor CKD stage 3 * creatinine 1.7, baseline is probably closer to 1.6 * gentle IV hydration HTN * labile blood pressure lloyd-operatively * continue b-anabel DVT ppx * Lovenox FULL CODE
[2017-11-30] MEDS ORDERED: NURSING VERBAL MED ORDER ONE (14:00)
--- NOTE | 2017-11-30 14:08 | Surgery Progress Note ---
Surgery Progress Note Date of Service Nov 30, 2017. Subjective Post OP Day: 1 + feeling well, + pain controlled, No bowel movement, No flatus, No nausea, No vomiting Had more incisional pain last night but improved today Objective Vital Signs: Date Time Temp Pulse Resp B/P (MAP) Pulse Ox O2 Delivery O2 Flow Rate FiO2 11/30/17 13:01 61 157/70 (99) 98 11/30/17 13:00 61 99 11/30/17 12:56 36.4 68 18 96 2.0 11/30/17 12:02 71 130/102 (111) 11/30/17 12:00 62 93 Room Air 11/30/17 11:01 57 145/65 (91) 11/30/17 11:00 62 99 11/30/17 10:01 69 153/76 (101) 99 11/30/17 10:00 37.0 59 98 Room Air 11/30/17 09:01 68 88/77 (81) 96 11/30/17 09:00 69 98 11/30/17 08:01 67 18 166/77 (106) 96 Room Air 11/30/17 08:00 68 97 11/30/17 08:00 96 Nasal Cannula 2.0 11/30/17 07:01 55 136/64 (88) 97 11/30/17 07:00 57 99 11/30/17 06:01 64 143/67 (92) 98 11/30/17 05:01 36.4 65 143/62 (89) 97 11/30/17 04:01 64 18 138/64 (88) 97 11/30/17 04:00 96 Nasal Cannula 2.0 11/30/17 03:01 65 18 143/62 (89) 97 11/30/17 02:01 73 20 144/70 (94) 94 11/30/17 01:01 69 18 166/77 (106) 96 11/30/17 00:01 36.5 71 18 143/68 (93) 94 Nasal Cannula 2.0 11/30/17 00:01 71 20 143/68 (93) 94 11/29/17 23:59 96 Nasal Cannula 2.0 11/29/17 23:01 69 20 157/69 (98) 97 11/29/17 22:01 71 18 142/63 (89) 95 11/29/17 20:01 36.7 81 20 135/75 (95) 95 Nasal Cannula 2.0 11/29/17 20:00 96 Nasal Cannula 2.0 11/29/17 18:01 70 160/72 (109) 96 11/29/17 18:00 70 96 11/29/17 17:01 68 137/61 (85) 97 11/29/17 17:00 70 95 11/29/17 16:01 75 159/62 (102) 96 11/29/17 16:01 75 159/62 (102) 96 11/29/17 16:00 98 Oxymask 2.0 11/29/17 16:00 73 96 11/29/17 16:00 73 96 11/29/17 15:30 67 97 11/29/17 15:01 71 130/64 (80) 96 11/29/17 15:00 73 96 11/29/17 14:30 67 94 Abdomen: non distended, soft, + tenderness (iNCISIONAL ONLY) Laboratory Results: Results Past 24 Hours Test 11/29/17 21:10 11/30/17 05:58 Range/Units Bedside Glucose 178 70-99 mg/dl White Blood Count 12.53 4.8-10.8 K/uL Red Blood Count 3.21 4.7-6.1 M/uL Hemoglobin 11.2 14.0-18.0 g/dL Hematocrit 33.3 42-52 % Mean Corpuscular Volume 103.7 80-100 fL Mean Corpuscular Hemoglobin 34.9 25-34 pg Mean Corpuscular Hemoglobin Concent 33.6 32-36 g/dl Platelet Count 172 130-400 K/uL Mean Platelet Volume 10.6 7.4-10.4 fL Neutrophils (%) (Auto) 86.1 % Lymphocytes (%) (Auto) 4.4 % Monocytes (%) (Auto) 9.1 % Eosinophils (%) (Auto) 0.0 % Basophils (%) (Auto) 0.1 % Neutrophils # (Auto) 10.79 1.4-6.5 K/uL Lymphocytes # (Auto) 0.55 1.2-3.4 K/uL Monocytes # (Auto) 1.14 0.11-0.59 K/uL Eosinophils # (Auto) 0.00 0-0.5 K/uL Basophils # (Auto) 0.01 0-0.2 K/uL RDW Standard Deviation 58.1 36.4-46.3 fL RDW Coefficient of Variation 15.4 11.5-14.5 % Immature Granulocyte % (Auto) 0.3 % Immature Granulocyte # (Auto) 0.04 0.00-0.02 K/uL Macrocytosis PRESENT Ovalocytes 1+ Prothrombin Time 12.0 9.0-12.0 SECONDS Prothromb Time International Ratio 1.1 0.9-1.1 Activated Partial Thromboplast Time 30.3 21.0-31.0 SECONDS Partial Thromboplastin Ratio 1.2 Sodium Level 139 136-145 mmol/L Potassium Level 5.2 3.5-5.1 mmol/L Chloride Level 109 98-107 mmol/L Carbon Dioxide Level 25 21-32 mmol/L Anion Gap 5.0 3-11 mmol/L Blood Urea Nitrogen 36 7-18 mg/dl Creatinine 1.72 0.60-1.40 mg/dl Est Creatinine Clear Calc Drug Dose 29.6 ml/min Estimated GFR () 42.6 Estimated GFR (Non- 36.7 BUN/Creatinine Ratio 20.9 10-20 Random Glucose 150 70-99 mg/dl Calcium Level 8.2 8.5-10.1 mg/dl Phosphorus Level 3.3 2.5-4.9 mg/dl Magnesium Level 2.0 1.8-2.4 mg/dl Assessment & Plan S/P repair of incisional umbilical hernia with partial small bowel resection Had MRI confirmed [facility] with weakness of left arm Medicine managing neuro status Can have clear liquids Transferred to floor Advance diet as bowel function returns
[2017-11-30] MEDS: SODIUM CHLORIDE 0.9% 1000ML 1,000 ML IV SCH (15:32)
--- NOTE | 2017-11-30 16:08 | Critical Care Progress Note ---
Critical Care Progress Note Date of Service Nov 30, 2017. ICU Day ICU Day Number: [address] Fang Subjective This AM pt denies any sob and reports slight improvement in L hand weakness. ON: no changes. No BM yet. Improved pain. Objective General Appearance: no apparent distress Head: normocephalic, atraumatic Eyes: no discharge, conjunctivae normal Respiratory: clear to auscultation, coarse breath sounds Cardiovasular: RRR, normal S1S2, no murmur Abdomen: normal bowel sounds, no organomegaly, TTP over umbilical incision site Genitourinary: ricks in place Upper Extremities: L hand spasticity (unable to hold open) with weakness; R IC - IV Lower Extremities: no edema, R BKA Neuro: alert, oriented x 3 MRI concerning for multiple areas of restricted diffusion in there right cerebral hemisphere (frontal and parietal lobes) concerning for acute/subacute infarct. Mild chronic microvascular ischemic changes. Bilateral mastoid and paranasal sinus disease. Assessment & Plan 82y/oM with hx of CAD s/p CABG x 4 (1 year ago), HLD, HTN and BPH who presented with abdominal pain. Admitted to the ICU s/p incarcerated umbilical hernia repair with small bowel resection for concern of generalized weakness and L arm/hand weakness concerning for stroke given MRI finding of acute/subacute infarct in right cerebral hemisphere (frontal and parietal lobes - multiple areas of restricted diffusion). Weakness stable/improving. PLAN: Neuro: Alert and oriented x 3 with L arm/hand weakness and generalized fatigue. L hand spastic and pt unable to keep open in the setting of R sided stroke. MRI brain w/ot contrast - multiple areas of restricted diffusion R cerebral hemisphere (frontal and parietal lobes) concerning for acute/subacute infarct Acetylcholine receptor block Ab - pending Continued home aspirin 81mg daily Neurology consulted - recommended echo to rule out ASD/vegetations; outpatient ZIO for any arrhythmias; anti-platelet therapy discussion as pt may not tolerate Plavix; LDL < 70; PT/OT to determine dc needs PAIN: morphine 2mg IV Q1H PRN and Percocet 1 tab Q4H PRN CV: BP now wnl Hx of HTN and HLD On Metoprolol tartrate 25mg BID Pulm: Denies sob. Breathing comfortably Initially on CPAP; T-piece trial passed and was extubated shortly after arrival. On NC 2L (wean as tolerated for O2 sat > 92%) Renal: Cr at baseline ~ 1.5; Cr this AM 1.7 UA negative Ricks in place with decreased urine output ID: No known infectious etiology Afebrile; WBC up-trended to 12.5 (likely in the setting of acute illness vs. being on IV steroids) Received a dose of ancep 1000mg in the OR Endocrine: BSG 150 this AM Continue home Prednisone 5mg daily for rheumatoid arthritis Received Hydrocortisone 50mg IV Q8H prior to ICU arrival - dced Heme: mildly anemic H/H 11.2/33.3. Baseline Hgb ~ 13; plt 172 No concern for bleeding at this time Monitor CBC Electrolytes: K elevated to 5.2 this AM and chloride 109 Dc IVF with KCL Monitor BMP Nutrition/GI: Clear liquid diet - advance as tolerated Takes omeprazole 20mg BID at home On pantoprazole 20mg BID IV access: R arm peripheral IV DVT prophylaxis: Lovenox 30mg QAM CCT: 45 minutes independent of any procedures Thank you for including us in the care of this patient. Please refer to Dr. Fang's addendum for further recommendations. Resident Physician Supervision Note: I was present with Dr. Angulo during the history and exam. I discussed the case with the resident and agree with the findings and plan as documented in the note. Any exceptions or clarifications are listed here: Agree with the aspirin therapy. I strongly encouraged him to have inpatient rehab. Documented By: Kamran Fang Consults & Procedures Consultants: General Surgery: Dr. Cerna Neurology: Dr. Baker Procedures: Repair of incisional umbilical hernia with partial small bowel resection Data Medications: Current Inpatient Medications Medications (Trade) Dose Ordered Sig/Yandel Route Start Time Stop Time Status Last Admin Dose Admin Oxycodone/ Acetaminophen (Percocet 5-325mg Tab) 1 tab Q4H PRN PO 11/29/17 06:30 12/13/17 06:29 Morphine Sulfate (MoRPHine SULFATE INJ) 2 mg Q1H PRN IV 11/29/17 06:30 12/13/17 06:29 11/30/17 01:49 2 MG Enoxaparin Sodium (Lovenox Inj) 30 mg QAM SQ 11/30/17 09:00 12/30/17 08:59 11/30/17 12:09 30 MG Metoprolol Tartrate (Lopressor Tab) 25 mg BID PO 11/29/17 21:00 12/29/17 20:59 11/30/17 08:14 25 MG Pantoprazole Sodium (Protonix Tab) 20 mg BID PO 11/29/17 21:00 12/29/17 20:59 11/30/17 08:16 20 MG Atorvastatin Calcium (Lipitor Tab) 40 mg HS PO 11/29/17 21:00 12/29/17 20:59 11/29/17 21:14 40 MG Folic Acid (Folvite Tab) 1 mg MoTuWeThFrSa PO 11/29/17 17:00 12/29/17 16:59 11/29/17 17:24 1 MG Nitroglycerin (Nitrostat Tab) 0.4 mg UD PRN UT 11/29/17 16:15 12/29/17 16:14 Multivitamins/ Minerals (Multivitamin W/ Minerals Tab) 1 tab DAILY PO 11/30/17 09:00 12/30/17 08:59 11/30/17 08:16 1 TAB Aspirin (Ecotrin Tab) 81 mg QAM PO 12/01/17 09:00 12/31/17 08:59 Prednisone (PredniSONE TAB) 5 mg DAILY PO 12/01/17 09:00 12/31/17 08:59 Sodium Chloride 1,000 ml @ 15 mls/hr Q24H IV 11/30/17 14:00 12/30/17 13:59 I & O: 24hrs: Is: 2087cc; Os: 1455cc net +632cc UOP: 600cc rate = 0.58cc/kg/hr. No BM Vital Signs: Date Time Temp Pulse Resp B/P (MAP) Pulse Ox O2 Delivery O2 Flow Rate FiO2 11/30/17 13:01 61 157/70 (99) 98 11/30/17 13:00 61 99 11/30/17 12:56 36.4 68 18 96 2.0 11/30/17 12:02 71 130/102 (111) 11/30/17 12:00 62 93 Room Air 11/30/17 11:01 57 145/65 (91) 11/30/17 11:00 62 99 11/30/17 10:01 69 153/76 (101) 99 11/30/17 10:00 37.0 59 98 Room Air 11/30/17 09:01 68 88/77 (81) 96 11/30/17 09:00 69 98 11/30/17 08:01 67 18 166/77 (106) 96 Room Air 11/30/17 08:00 68 97 11/30/17 08:00 96 Nasal Cannula 2.0 11/30/17 07:01 55 136/64 (88) 97 11/30/17 07:00 57 99 11/30/17 06:01 64 143/67 (92) 98 11/30/17 05:01 36.4 65 143/62 (89) 97 11/30/17 04:01 64 18 138/64 (88) 97 11/30/17 04:00 96 Nasal Cannula 2.0 11/30/17 03:01 65 18 143/62 (89) 97 11/30/17 02:01 73 20 144/70 (94) 94 11/30/17 01:01 69 18 166/77 (106) 96 11/30/17 00:01 36.5 71 18 143/68 (93) 94 Nasal Cannula 2.0 11/30/17 00:01 71 20 143/68 (93) 94 11/29/17 23:59 96 Nasal Cannula 2.0 11/29/17 23:01 69 20 157/69 (98) 97 11/29/17 22:01 71 18 142/63 (89) 95 11/29/17 20:01 36.7 81 20 135/75 (95) 95 Nasal Cannula 2.0 11/29/17 20:00 96 Nasal Cannula 2.0 11/29/17 18:01 70 160/72 (109) 96 11/29/17 18:00 70 96 11/29/17 17:01 68 137/61 (85) 97 11/29/17 17:00 70 95 11/29/17 16:01 75 159/62 (102) 96 11/29/17 16:01 75 159/62 (102) 96 11/29/17 16:00 98 Oxymask 2.0 11/29/17 16:00 73 96 11/29/17 16:00 73 96 11/29/17 15:30 67 97 11/29/17 15:01 71 130/64 (80) 96 11/29/17 15:00 73 96 Laboratory Results: Last 24 Hours Test 11/29/17 21:10 11/30/17 05:58 Bedside Glucose 178 mg/dl White Blood Count 12.53 K/uL Red Blood Count 3.21 M/uL Hemoglobin 11.2 g/dL Hematocrit 33.3 % Mean Corpuscular Volume 103.7 fL Mean Corpuscular Hemoglobin 34.9 pg Mean Corpuscular Hemoglobin Concent 33.6 g/dl Platelet Count 172 K/uL Mean Platelet Volume 10.6 fL Neutrophils (%) (Auto) 86.1 % Lymphocytes (%) (Auto) 4.4 % Monocytes (%) (Auto) 9.1 % Eosinophils (%) (Auto) 0.0 % Basophils (%) (Auto) 0.1 % Neutrophils # (Auto) 10.79 K/uL Lymphocytes # (Auto) 0.55 K/uL Monocytes # (Auto) 1.14 K/uL Eosinophils # (Auto) 0.00 K/uL Basophils # (Auto) 0.01 K/uL RDW Standard Deviation 58.1 fL RDW Coefficient of Variation 15.4 % Immature Granulocyte % (Auto) 0.3 % Immature Granulocyte # (Auto) 0.04 K/uL Macrocytosis PRESENT Ovalocytes 1+ Prothrombin Time 12.0 SECONDS Prothromb Time International Ratio 1.1 Activated Partial Thromboplast Time 30.3 SECONDS Partial Thromboplastin Ratio 1.2 Sodium Level 139 mmol/L Potassium Level 5.2 mmol/L Chloride Level 109 mmol/L Carbon Dioxide Level 25 mmol/L Anion Gap 5.0 mmol/L Blood Urea Nitrogen 36 mg/dl Creatinine 1.72 mg/dl Est Creatinine Clear Calc Drug Dose 29.6 ml/min Estimated GFR () 42.6 Estimated GFR (Non- 36.7 BUN/Creatinine Ratio 20.9 Random Glucose 150 mg/dl Calcium Level 8.2 mg/dl Phosphorus Level 3.3 mg/dl Magnesium Level 2.0 mg/dl
--- NOTE | 2017-11-30 16:50 | ECHOCARDIOGRAM REPORT ---
*NOTICE TO RECEIVING [employer] This information is strictly Confidential and protected under [place] law. [place] law prohibits you from making any further disclosure of this information unless further disclosure is expressly permitted by the written consent of the person to whom it pertains or is authorized by law. A general authorization for the release of medical or other information is not sufficient for this purpose. Hospital accepts no responsibility if the information is made available to any other person, INCLUDING THE PATIENT. Interpretation Summary * Name: SAMEERA CARTY Study Date: 11/30/2017 01:48 PM BP: 88/77 mmHg * Patient Location: .MSICU\S\E110\S\1 HR: 68 * : 1935 (M/d/yyyy) Gender: Male Height: 65 in * Age: 82 yrs Ethnicity: CA Weight: 134 lb * Ordering Physician: Eloisa Lehman * Referring Physician: Self, Referred * Performed By: Adithya Ruiz RCS * * Reason For Study: CVA * BSA: 1.7 m2 * -- Conclusions -- * Left ventricular systolic function is normal. * Diastolic dysfunction, Grade II, consistent with elevated left atrial pressure. * There is mild right ventricular hypertrophy. * The right ventricular systolic function is reduced as assessed by tricuspid annular plane systolic excursion (TAPSE) (TAPSE <1.6 cm). * Borderline left atrial enlargement. * Mild aortic regurgitation. * There is mild mitral annular calcification. * Right ventricular systolic pressure is elevated at 30-40mmHg. Procedure Details * A complete two-dimensional transthoracic echocardiogram was performed (2D, M-mode, Doppler and color flow Doppler). Left Ventricle * The left ventricle is normal in size. * There is normal left ventricular wall thickness. * Ejection Fraction = 60-65%. * Left ventricular systolic function is normal. * Diastolic dysfunction, Grade II, consistent with elevated left atrial pressure. * The left ventricular wall motion is normal. Right Ventricle * The right ventricle is grossly normal size. * There is mild right ventricular hypertrophy. * The right ventricular systolic function is reduced as assessed by tricuspid annular plane systolic excursion (TAPSE) (TAPSE <1.6 cm). Atria * Borderline left atrial enlargement. * Right atrial size is normal. Mitral Valve * There is mild mitral annular calcification. * Significant mitral regurgitation is absent. Tricuspid Valve * The tricuspid valve is not well visualized, but is grossly normal. * There is trace tricuspid regurgitation. * Right ventricular systolic pressure is elevated at 30-40mmHg. Aortic Valve * Aortic valve sclerosis moderate, without significant aortic valvular stenosis. * There is reduced aortic valve opening with normal gradients * Mild aortic regurgitation. Pulmonic Valve * The pulmonic valve is not well visualized. Great Vessels * The aortic root is normal size. Pericardium/Pleural * There is no pericardial effusion. MMode 2D Measurements and Calculations IVSd 1.0 cm IVSs 1.2 cm LVIDd 4.0 cm LVIDs 2.4 cm LVPWd 1.1 cm LVPWs 1.3 cm IVS/LVPW 0.90 FS 40.1 % EDV(Teich) 71.3 ml ESV(Teich) 20.5 ml EF(Teich) 71.2 % EDV(cubed) 65.5 ml ESV(cubed) 14.1 ml EF(cubed) 78.5 % % IVS thick 20.0 % % LVPW thick 13.7 % LV mass(C)d 145.1 grams LV mass(C)dI 86.9 grams/m\S\2 LV mass(C)s 90.1 grams LV mass(C)sI 54.0 grams/m\S\2 SV(Teich) 50.8 ml SI(Teich) 30.4 ml/m\S\2 SV(cubed) 51.4 ml SI(cubed) 30.8 ml/m\S\2 Ao root diam 3.4 cm Ao root area 9.0 cm\S\2 LA dimension 4.0 cm LA/Ao 1.2 LVOT diam 2.1 cm LVOT area 3.5 cm\S\2 LVAd ap4 32.3 cm\S\2 LVLd ap4 9.3 cm EDV(MOD-sp4) 91.3 ml EDV(sp4-el) 94.6 ml LVAs ap4 15.0 cm\S\2 LVLs ap4 7.6 cm ESV(MOD-sp4) 26.7 ml ESV(sp4-el) 25.1 ml EF(MOD-sp4) 70.7 % EF(sp4-el) 73.5 % LVAd ap2 30.2 cm\S\2 LVLd ap2 8.5 cm EDV(MOD-sp2) 95.4 ml EDV(sp2-el) 91.6 ml LVAs ap2 15.7 cm\S\2 LVLs ap2 6.8 cm ESV(MOD-sp2) 32.4 ml ESV(sp2-el) 30.7 ml EF(MOD-sp2) 66.0 % EF(sp2-el) 66.5 % LVLd %diff -10.32 % EDV(MOD-bp) 97.2 ml LVLs %diff -11.33 % ESV(MOD-bp) 29.4 ml EF(MOD-bp) 69.8 % SV(MOD-sp4) 64.6 ml SI(MOD-sp4) 38.7 ml/m\S\2 SV(MOD-sp2) 63.0 ml SI(MOD-sp2) 37.7 ml/m\S\2 SV(MOD-bp) 67.9 ml SI(MOD-bp) 40.7 ml/m\S\2 SV(sp4-el) 69.5 ml SI(sp4-el) 41.6 ml/m\S\2 SV(sp2-el) 60.9 ml SI(sp2-el) 36.5 ml/m\S\2 Doppler Measurements and Calculations MV E max sandra 90.6 cm/sec MV A max sandra 62.0 cm/sec MV E/A 1.5 MV P1/2t max sandra 119.2 cm/sec MV P1/2t 72.5 msec MVA(P1/2t) 3.0 cm\S\2 MV dec slope 481.3 cm/sec\S\2 MV dec time 0.24 sec Ao V2 max 206.4 cm/sec Ao max PG 17.1 mmHg Ao max PG (full) 14.1 mmHg Ao V2 mean 136.0 cm/sec Ao mean PG 8.6 mmHg Ao mean PG (full) 7.2 mmHg Ao V2 VTI 44.1 cm LAUREANO(I,A) 1.5 cm\S\2 LAUREANO(I,D) 1.5 cm\S\2 LAUREANO(V,A) 1.4 cm\S\2 LAUREANO(V,D) 1.4 cm\S\2 AI max sandra 456.7 cm/sec AI max PG 84.1 mmHg AI dec slope 269.8 cm/sec\S\2 AI P1/2t 495.8 msec LV V1 max PG 3.0 mmHg LV V1 mean PG 1.4 mmHg LV V1 max 86.4 cm/sec LV V1 mean 54.6 cm/sec LV V1 VTI 18.7 cm SV(Ao) 397.3 ml SI(Ao) 238.1 ml/m\S\2 SV(LVOT) 64.7 ml SI(LVOT) 38.8 ml/m\S\2 TR max sandra 266.3 cm/sec
[2017-11-30] MEDS: ATORVASTATIN 40 MG TAB PO SCH (20:15)
[2017-12-01] VITALS (10 sets, daily range): BP systolic 131–196; BP diastolic 73–102; PULSE 54–75; TEMP 36.5–36.7; O2SAT 93–96
[2017-12-01 05:43] LABS: BASO % 0.2 %; BASO ABS # 0.02 K/uL (0-0.2); EOS % 3.2 %; EOS ABS # 0.28 K/uL (0-0.5); HEMATOCRIT 33.3 % (42-52); HEMOGLOBIN 10.5 g/dL (14.0-18.0); IG# 0.02 K/uL (0.00-0.02); LYMPH % 11.6 %; LYMPH ABS # 1.02 K/uL (1.2-3.4); MEAN CELL VOLUME 103.4 fL (80-100); MEAN CORPUSCULAR HEMOGLOBIN 32.6 pg (25-34); MEAN CORPUSCULAR HGB CONC 31.5 g/dl (32-36); MEAN PLATELET VOLUME 11.1 fL (7.4-10.4); MONO % 7.9 %; MONO ABS # 0.69 K/uL (0.11-0.59); NEUT % 76.9 %; NEUT ABS # 6.73 K/uL (1.4-6.5); PLATELET COUNT 160 K/uL (130-400); RED CELL DISTRIBUTION WIDTH CV 15.3 % (11.5-14.5); RED CELL DISTRIBUTION WIDTH SD 56.8 fL (36.4-46.3); WHITE BLOOD COUNT 8.76 K/uL (4.8-10.8)
[2017-12-01 06:22] LABS: CALCIUM 7.7 mg/dl (8.5-10.1); CREATININE 1.4 mg/dl (0.60-1.40); POTASSIUM 4.4 mmol/L (3.5-5.1)
--- NOTE | 2017-12-01 06:34 | Surgery Progress Note ---
Surgery Progress Note Date of Service Dec 01, 2017. Subjective Post OP Day: 2 + feeling well, + pain controlled, + diet (Tolerating clears. ), No complaints, No bowel movement, No flatus, No nausea, No vomiting Objective Vital Signs: Date Time Temp Pulse Resp B/P (MAP) Pulse Ox O2 Delivery O2 Flow Rate FiO2 12/01/17 04:09 36.5 59 16 158/81 (106) 93 Nasal Cannula 2.0 11/30/17 23:40 91 Nasal Cannula 2.0 50 11/30/17 23:07 36.5 60 14 150/67 (94) 88 Room Air 11/30/17 23:07 91 Nasal Cannula 2.0 11/30/17 21:57 61 154/71 (98) 11/30/17 19:16 36.6 61 20 168/70 (102) 92 Room Air 11/30/17 15:49 152/64 (93) 96 Room Air 11/30/17 15:40 Room Air 11/30/17 15:25 37.0 58 20 166/60 (95) 97 Nasal Cannula 3.0 11/30/17 14:50 36.7 57 137/66 (89) 98 Nasal Cannula 2.0 11/30/17 13:01 61 157/70 (99) 98 11/30/17 13:00 61 99 11/30/17 12:56 36.4 68 18 96 2.0 11/30/17 12:02 71 130/102 (111) 11/30/17 12:00 62 93 Room Air 11/30/17 11:01 57 145/65 (91) 11/30/17 11:00 62 99 11/30/17 10:01 69 153/76 (101) 99 11/30/17 10:00 37.0 59 98 Room Air 11/30/17 09:01 68 88/77 (81) 96 11/30/17 09:00 69 98 11/30/17 08:01 67 18 166/77 (106) 96 Room Air 11/30/17 08:00 68 97 11/30/17 08:00 96 Nasal Cannula 2.0 11/30/17 07:01 55 136/64 (88) 97 11/30/17 07:00 57 99 General Appearance: WD/WN, no apparent distress Head: normocephalic, atraumatic Respiratory/Chest: no respiratory distress, no accessory muscle use Abdomen: non distended, soft, no organomegaly, + tenderness (Incisional ) Incision(s): clean, dry, intact, no erythema, no drainage Laboratory Results: Results Past 24 Hours Test 12/01/17 05:11 Range/Units White Blood Count 8.76 4.8-10.8 K/uL Red Blood Count 3.22 4.7-6.1 M/uL Hemoglobin 10.5 14.0-18.0 g/dL Hematocrit 33.3 42-52 % Mean Corpuscular Volume 103.4 80-100 fL Mean Corpuscular Hemoglobin 32.6 25-34 pg Mean Corpuscular Hemoglobin Concent 31.5 32-36 g/dl Platelet Count 160 130-400 K/uL Mean Platelet Volume 11.1 7.4-10.4 fL Neutrophils (%) (Auto) 76.9 % Lymphocytes (%) (Auto) 11.6 % Monocytes (%) (Auto) 7.9 % Eosinophils (%) (Auto) 3.2 % Basophils (%) (Auto) 0.2 % Neutrophils # (Auto) 6.73 1.4-6.5 K/uL Lymphocytes # (Auto) 1.02 1.2-3.4 K/uL Monocytes # (Auto) 0.69 0.11-0.59 K/uL Eosinophils # (Auto) 0.28 0-0.5 K/uL Basophils # (Auto) 0.02 0-0.2 K/uL RDW Standard Deviation 56.8 36.4-46.3 fL RDW Coefficient of Variation 15.3 11.5-14.5 % Immature Granulocyte % (Auto) 0.2 % Immature Granulocyte # (Auto) 0.02 0.00-0.02 K/uL Sodium Level 136 136-145 mmol/L Potassium Level 4.4 3.5-5.1 mmol/L Chloride Level 107 98-107 mmol/L Carbon Dioxide Level 23 21-32 mmol/L Anion Gap 6.0 3-11 mmol/L Blood Urea Nitrogen 31 7-18 mg/dl Creatinine 1.40 0.60-1.40 mg/dl Est Creatinine Clear Calc Drug Dose 36.3 ml/min Estimated GFR () 54.6 Estimated GFR (Non- 47.1 BUN/Creatinine Ratio 22.1 10-20 Random Glucose 84 70-99 mg/dl Calcium Level 7.7 8.5-10.1 mg/dl Magnesium Level 1.8 1.8-2.4 mg/dl Triglycerides Level 86 0-150 mg/dl Cholesterol Level 73 0-200 mg/dl HDL Cholesterol 39 mg/dl LDL Cholesterol, Calculated 17 mg/dl VLDL Cholesterol, Calculated 17 mg/dl Cholesterol/HDL Ratio 1.9 Assessment & Plan S/P repair of incisional umbilical hernia with partial small bowel resection Covering for [facility] general surgery. Pain controlled, No N/V, Tolerating clears. Enriquez in place. No BM or Flatus yet - keep clears for now. advance diet as bowel function returns. Continue medical management per hospitalist and neuro team. Will discuss findings with Dr. Ma. Please contact with questions or concerns.
[2017-12-01 06:44] LABS: HEMOGLOBIN A1C 5.7 % (4.5-5.6)
[2017-12-01] MEDS ORDERED: ASPIRIN 81 MG ECTAB PO SCH (09:00)
[2017-12-01] MEDS: ENOXAPARIN 30 MG/0.3 ML SYR SQ SCH (09:05)
[2017-12-01] MEDS: ASPIRIN 81 MG ECTAB PO SCH (09:06)
[2017-12-01] MEDS: CEROVITE ADV FORMULA TAB PO SCH (09:06)
[2017-12-01] MEDS: PANTOprazole SOD 40 MG TAB PO SCH ×2 (09:07→20:31)
[2017-12-01] MEDS: METOPROLOL TARTRATE 25 MG TAB PO SCH ×2 (09:08→20:32)
--- NOTE | 2017-12-01 09:48 | PROGRESS NOTE ---
DATE: 12/01/2017 SUBJECTIVE: I am seeing Mr. Barrera in followup of a stroke that occurred after surgery for an incarcerated inguinal hernia. Surgery complicated by hypotension and bradycardia. Imaging showing greater than 70% stenosis of the bilateral internal carotids. The patient is doing well today. He indicates he is no better, but certainly no worse. 36.6, 64, 196/102. His speech and language are unremarkable. There are no field cuts. No significant facial droop. The finger extensors are about 3-, wrist extensors about 3, more proximally is about 4. Left lower extremity is full. Right side full. There is no anesthesia to light touch. IMPRESSION AND PLAN: Stable right middle cerebral artery infarction, likely a combination of hypoperfusion from hypotension and bradycardia on high grade stenoosis of the internalcarotid arteries. Continue antiplatelet therapy: The patient is to avoid hypotension, gradually reduce vascular risk factors. I would recommend a vascular surgery consultation while the patient is in mentation. Probably, they will need to wait at least 4 or so weeks before considering a carotid endarterectomy in this patient. MARIA T
[2017-12-01] MEDS: SODIUM CHLORIDE 0.9% 1000ML 1,000 ML IV SCH (14:06)
--- NOTE | 2017-12-01 18:09 | Progress Note ---
Subjective Date of Service: Dec 01, 2017. Subjective Pt evaluation today including: conversation w/ patient, physical exam, lab review, review of studies, review of inpatient medication list Saw/examined the patient in room 378 No problems/issues - ambulated with therapy Denies chest pain/shortness of breath still on a clear liquid diet Problem List Medical Problems: (1) Abscess Status: Acute (2) Cellulitis and abscess of leg Status: Acute (3) Incarcerated umbilical hernia Status: Acute (4) Small bowel obstruction Status: Acute Review of Systems Constitutional: No fever, No chills Respiratory: No cough, No sputum, No shortness of breath Cardiac: No chest pain Neurologic: + weakness Heme: No abnormal bleeding/bruising Medications Current Inpatient Medications Medications (Trade) Dose Ordered Sig/Yandel Route Start Time Stop Time Status Last Admin Dose Admin Oxycodone/ Acetaminophen (Percocet 5-325mg Tab) 1 tab Q4H PRN PO 11/29/17 06:30 12/13/17 06:29 Morphine Sulfate (MoRPHine SULFATE INJ) 2 mg Q1H PRN IV 11/29/17 06:30 12/13/17 06:29 11/30/17 01:49 2 MG Enoxaparin Sodium (Lovenox Inj) 30 mg QAM SQ 11/30/17 09:00 12/30/17 08:59 12/01/17 09:05 30 MG Metoprolol Tartrate (Lopressor Tab) 25 mg BID PO 11/29/17 21:00 12/29/17 20:59 12/01/17 09:08 25 MG Pantoprazole Sodium (Protonix Tab) 20 mg BID PO 11/29/17 21:00 12/29/17 20:59 12/01/17 09:07 20 MG Atorvastatin Calcium (Lipitor Tab) 40 mg HS PO 11/29/17 21:00 12/29/17 20:59 11/30/17 20:15 40 MG Folic Acid (Folvite Tab) 1 mg MoTuWeThFrSa PO 11/29/17 17:00 12/29/17 16:59 12/01/17 16:57 1 MG Nitroglycerin (Nitrostat Tab) 0.4 mg UD PRN UT 11/29/17 16:15 12/29/17 16:14 Multivitamins/ Minerals (Multivitamin W/ Minerals Tab) 1 tab DAILY PO 11/30/17 09:00 12/30/17 08:59 12/01/17 09:06 1 TAB Aspirin (Ecotrin Tab) 81 mg QAM PO 12/01/17 09:00 12/31/17 08:59 12/01/17 09:06 81 MG Prednisone (PredniSONE TAB) 5 mg DAILY PO 12/01/17 09:00 12/31/17 08:59 12/01/17 09:06 5 MG Sodium Chloride 1,000 ml @ 15 mls/hr Q24H IV 11/30/17 14:00 12/30/17 13:59 12/01/17 14:06 15 MLS/HR Objective Vital Signs Date Time Temp Pulse Resp B/P (MAP) Pulse Ox O2 Delivery O2 Flow Rate FiO2 12/01/17 16:08 36.7 68 19 168/81 (110) 94 Room Air 12/01/17 15:34 66 95 12/01/17 15:15 Room Air 12/01/17 10:16 66 172/73 (106) 12/01/17 09:10 64 196/102 (133) 12/01/17 09:10 Room Air 12/01/17 07:23 36.6 54 15 178/78 (111) 96 Nasal Cannula 2.0 12/01/17 04:09 36.5 59 16 158/81 (106) 93 Nasal Cannula 2.0 11/30/17 23:40 91 Nasal Cannula 2.0 50 11/30/17 23:07 36.5 60 14 150/67 (94) 88 Room Air 11/30/17 23:07 91 Nasal Cannula 2.0 11/30/17 21:57 61 154/71 (98) 11/30/17 19:16 36.6 61 20 168/70 (102) 92 Room Air Physical Exam General Appearance: no apparent distress Respiratory/Chest: lungs clear, normal breath sounds, no respiratory distress, no accessory muscle use Cardiovascular: regular rate, rhythm, no edema, no murmur Abdomen: normal bowel sounds, non tender, soft Neurologic/Psychiatric: no motor/sensory deficits, alert, normal mood/affect, oriented x 3, + pertinent finding (L hand contact officer weakness) Laboratory Results Last 24 Hours Test 12/01/17 05:11 White Blood Count 8.76 K/uL Red Blood Count 3.22 M/uL Hemoglobin 10.5 g/dL Hematocrit 33.3 % Mean Corpuscular Volume 103.4 fL Mean Corpuscular Hemoglobin 32.6 pg Mean Corpuscular Hemoglobin Concent 31.5 g/dl Platelet Count 160 K/uL Mean Platelet Volume 11.1 fL Neutrophils (%) (Auto) 76.9 % Lymphocytes (%) (Auto) 11.6 % Monocytes (%) (Auto) 7.9 % Eosinophils (%) (Auto) 3.2 % Basophils (%) (Auto) 0.2 % Neutrophils # (Auto) 6.73 K/uL Lymphocytes # (Auto) 1.02 K/uL Monocytes # (Auto) 0.69 K/uL Eosinophils # (Auto) 0.28 K/uL Basophils # (Auto) 0.02 K/uL RDW Standard Deviation 56.8 fL RDW Coefficient of Variation 15.3 % Immature Granulocyte % (Auto) 0.2 % Immature Granulocyte # (Auto) 0.02 K/uL Sodium Level 136 mmol/L Potassium Level 4.4 mmol/L Chloride Level 107 mmol/L Carbon Dioxide Level 23 mmol/L Anion Gap 6.0 mmol/L Blood Urea Nitrogen 31 mg/dl Creatinine 1.40 mg/dl Est Creatinine Clear Calc Drug Dose 36.3 ml/min Estimated GFR () 54.6 Estimated GFR (Non- 47.1 BUN/Creatinine Ratio 22.1 Random Glucose 84 mg/dl Estimated Average Glucose 117 mg/dl Hemoglobin A1c 5.7 % Calcium Level 7.7 mg/dl Magnesium Level 1.8 mg/dl Triglycerides Level 86 mg/dl Cholesterol Level 73 mg/dl HDL Cholesterol 39 mg/dl LDL Cholesterol, Calculated 17 mg/dl VLDL Cholesterol, Calculated 17 mg/dl Cholesterol/HDL Ratio 1.9 Assessment and Plan This is an 82 year old male with a PMH of CAD s/p CABG x4, HTN, HLD, CKD stage 3 , hx. of R BKA - presented for an incarcerated hernia repair; subsequently transferred to the ICU due to L sided weakness and found to have an acute vs.subacute CVA Acute CVA 12/01 * continue aspirin, statin * PT/OT/speech * appreciate neurology input * outpatient vascular surgery * all mild hypertension - will likely add MATTHEW-I once closer to discharge 11/30 * Brain MRI - right cerebral hemisphere involving the frontal and parietal lobes * patient with continued L sided weakness; able to move arms, but minimal contact officer strength * added back aspirin - okay with general surgery * continue Lipitor * PT/OT/speech ordered * carotid U/S done - 70% stenosis bilaterally * echo ordered * further management as per neurology Incarcerated Hernia Repair Partial Small Bowel Obstruction 12/01 * clears for now * once passing gas, +BM, can advance * appreciate gen surg input 11/30 * s/p repair, POD #1 * as per general surgery, doing well; will start clears * advance diet as tolerated * pain is controlled, monitor H/H and electrolytes Carotid Artery Stenosis * bilateral carotid artery stenosis ~ 70% * no vascular intervention with recent CVA and recent incarcerated hernia repair * added back aspirin * continue statin CAD s/p CABG * s/p CABG x4 in June 2016 * will continue aspirin, statin, b-anabel * no active chest pain, no acute issues noted Leukocytosis - resolved * unlikely infectious - stress related to surgery + steroid use * will monitor CKD stage 3 * creatinine 1.7, baseline is probably closer to 1.6 * gentle IV hydration HTN * labile blood pressure lloyd-operatively * continue b-anabel DVT ppx * Lovenox FULL CODE
[2017-12-01] MEDS: ATORVASTATIN 40 MG TAB PO SCH (20:32)
--- NOTE | 2017-12-01 23:51 | Progress Note ---
Post ICU Progress Note Date & Time Dec 01, 2017 at 23:51 Vital Signs Vital Signs Past 12 Hours Date Time Temp Pulse Resp B/P (MAP) Pulse Ox O2 Delivery O2 Flow Rate FiO2 12/01/17 22:53 36.6 71 16 172/86 (114) 93 Room Air 12/01/17 22:10 75 131/78 (95) 93 Room Air 12/01/17 20:21 72 184/88 (120) 93 Room Air 12/01/17 20:20 Room Air 12/01/17 16:08 36.7 68 19 168/81 (110) 94 Room Air 12/01/17 15:34 66 95 12/01/17 15:15 Room Air Notes Mental Status: alert / awake, participated in evaluation Nausea / Vomiting: adequately controlled Pain: adequately controlled Airway Patency, RR, SpO2: stable & adequate BP & HR: stable & adequate Anjel Barrera is an 82yo male that was treated emergently by Dr. Cerna for incarcerated umbilical hernia with repair & partial small bowel resection on . Per anesthesia pt had protracted hypotension/bradycardia which did not respond to pressors but ultimately responded to steroids. Per Dr. Fang was difficult to awaken post surgery also and ultimately was found to have new onset left upper extremity weakness. MRI noted ischemic changes. Neurology is following and suggests future R CEA. Pt states weakness is improving. His post -surgical pain is improving. Pt states he is passing gas but has not had a BM post op. He has not complaints at this time. His surgical site is clean and dry. Physical exam yields nothing acute. Consider outpatient follow up in 1 to 2 weeks with: Dr. Lamar Modi Repeat imaging needed: Per Surgery & Neuro Follow up cultures: NA Reviewed progress notes, labs, and inpatient medication list Continue current management Additional recommendations: None Pt is hemodynamically stable. Thank you for including us in the care of this patient. Please feel free to reconsult as needed. Inpatient Level 1 Billing Consults & Procedures Consultants: General Surgery: Dr. Cerna Neurology: Dr. Baker Procedures: Repair of incisional umbilical hernia with partial small bowel resection
[2017-12-02 05:44] LABS: HEMATOCRIT 33.3 % (42-52); HEMOGLOBIN 11.1 g/dL (14.0-18.0); MEAN CELL VOLUME 101.2 fL (80-100); MEAN CORPUSCULAR HEMOGLOBIN 33.7 pg (25-34); MEAN CORPUSCULAR HGB CONC 33.3 g/dl (32-36); MEAN PLATELET VOLUME 11.2 fL (7.4-10.4); PLATELET COUNT 168 K/uL (130-400); RED CELL DISTRIBUTION WIDTH CV 14.8 % (11.5-14.5); RED CELL DISTRIBUTION WIDTH SD 54.1 fL (36.4-46.3); WHITE BLOOD COUNT 8.46 K/uL (4.8-10.8)
[2017-12-02 06:04] LABS: CALCIUM 7.9 mg/dl (8.5-10.1); CREATININE 1.36 mg/dl (0.60-1.40); POTASSIUM 4.2 mmol/L (3.5-5.1)
--- NOTE | 2017-12-02 06:46 | Surgery Progress Note ---
Surgery Progress Note Date of Service Dec 02, 2017. Subjective Post OP Day: 3 + feeling well, + flatus, + pain controlled, + diet (Tolerating clears), No complaints, No bowel movement, No nausea, No vomiting Objective Vital Signs: Date Time Temp Pulse Resp B/P (MAP) Pulse Ox O2 Delivery O2 Flow Rate FiO2 12/01/17 23:26 Room Air 12/01/17 23:26 162/88 (112) 12/01/17 22:53 36.6 71 16 172/86 (114) 93 Room Air 12/01/17 22:10 75 131/78 (95) 93 Room Air 12/01/17 20:21 72 184/88 (120) 93 Room Air 12/01/17 20:20 Room Air 12/01/17 16:08 36.7 68 19 168/81 (110) 94 Room Air 12/01/17 15:34 66 95 12/01/17 15:15 Room Air 12/01/17 10:16 66 172/73 (106) 12/01/17 09:10 64 196/102 (133) 12/01/17 09:10 Room Air 12/01/17 07:23 36.6 54 15 178/78 (111) 96 Nasal Cannula 2.0 General Appearance: WD/WN, no apparent distress Head: normocephalic, atraumatic Respiratory/Chest: no respiratory distress, no accessory muscle use Abdomen: non distended, soft, no organomegaly, no pulsatile mass, + tenderness (Incisional) Incision(s): clean, dry, intact, no erythema, no drainage Laboratory Results: Results Past 24 Hours Test 12/02/17 05:12 Range/Units White Blood Count 8.46 4.8-10.8 K/uL Red Blood Count 3.29 4.7-6.1 M/uL Hemoglobin 11.1 14.0-18.0 g/dL Hematocrit 33.3 42-52 % Mean Corpuscular Volume 101.2 80-100 fL Mean Corpuscular Hemoglobin 33.7 25-34 pg Mean Corpuscular Hemoglobin Concent 33.3 32-36 g/dl RDW Standard Deviation 54.1 36.4-46.3 fL RDW Coefficient of Variation 14.8 11.5-14.5 % Platelet Count 168 130-400 K/uL Mean Platelet Volume 11.2 7.4-10.4 fL Sodium Level 137 136-145 mmol/L Potassium Level 4.2 3.5-5.1 mmol/L Chloride Level 105 98-107 mmol/L Carbon Dioxide Level 26 21-32 mmol/L Anion Gap 6.0 3-11 mmol/L Blood Urea Nitrogen 25 7-18 mg/dl Creatinine 1.36 0.60-1.40 mg/dl Est Creatinine Clear Calc Drug Dose 37.4 ml/min Estimated GFR () 56.6 Estimated GFR (Non- 48.8 BUN/Creatinine Ratio 18.2 10-20 Random Glucose 83 70-99 mg/dl Calcium Level 7.9 8.5-10.1 mg/dl Assessment & Plan S/P repair of incisional umbilical hernia with partial small bowel resection Covering for [facility] general surgery. Pain improved this AM. Tolerating clears, no N/V. + Flatus, No BM yet. Patient did not eat last night, keep clears for now. Possibly advance later today if bowel function further improves. Continue medical management per hospitalist and neuro team. Please contact with questions or concerns. S/P repair of incisional umbilical hernia with partial small bowel resection Covering for [facility] general surgery. Pain controlled, No N/V, Tolerating clears. Enriquez in place. No BM or Flatus yet - keep clears for now. advance diet as bowel function returns. Continue medical management per hospitalist and neuro team. Will discuss findings with Dr. Ma. Please contact with questions or concerns.
[2017-12-02 06:59] VITALS: BP 144/77; PULSE 65; TEMP 36.6; O2SAT 94
[2017-12-02] MEDS: ASPIRIN 81 MG ECTAB PO SCH (09:01)
[2017-12-02] MEDS: METOPROLOL TARTRATE 25 MG TAB PO SCH ×2 (09:01→21:06)
[2017-12-02] MEDS: PANTOprazole SOD 40 MG TAB PO SCH (09:01)
[2017-12-02] MEDS: CEROVITE ADV FORMULA TAB PO SCH (09:01)
[2017-12-02] MEDS: ENOXAPARIN 30 MG/0.3 ML SYR SQ SCH (09:01)
--- NOTE | 2017-12-02 10:42 | Progress Note ---
Subjective Date of Service: Dec 02, 2017. Subjective Pt evaluation today including: conversation w/ patient, physical exam, lab review, review of studies, review of inpatient medication list Saw/examined the patient in room 378 He is seated in a chair, about to work with therapy ambulated yesterday with his prosthetic leg no BM as of yet Problem List Medical Problems: (1) Abscess Status: Acute (2) Cellulitis and abscess of leg Status: Acute (3) Incarcerated umbilical hernia Status: Acute (4) Small bowel obstruction Status: Acute Review of Systems Abdomen: + constipation, No pain, No nausea, No vomiting, No diarrhea Neurologic: + weakness (L muscle hand weakness) Medications Current Inpatient Medications Medications (Trade) Dose Ordered Sig/Yandel Route Start Time Stop Time Status Last Admin Dose Admin Oxycodone/ Acetaminophen (Percocet 5-325mg Tab) 1 tab Q4H PRN PO 11/29/17 06:30 12/13/17 06:29 Morphine Sulfate (MoRPHine SULFATE INJ) 2 mg Q1H PRN IV 11/29/17 06:30 12/13/17 06:29 11/30/17 01:49 2 MG Enoxaparin Sodium (Lovenox Inj) 30 mg QAM SQ 11/30/17 09:00 12/30/17 08:59 12/02/17 09:01 30 MG Metoprolol Tartrate (Lopressor Tab) 25 mg BID PO 11/29/17 21:00 12/29/17 20:59 12/02/17 09:01 25 MG Atorvastatin Calcium (Lipitor Tab) 40 mg HS PO 11/29/17 21:00 12/29/17 20:59 12/01/17 20:32 40 MG Folic Acid (Folvite Tab) 1 mg MoTuWeThFrSa PO 11/29/17 17:00 12/29/17 16:59 12/01/17 16:57 1 MG Nitroglycerin (Nitrostat Tab) 0.4 mg UD PRN UT 11/29/17 16:15 12/29/17 16:14 Multivitamins/ Minerals (Multivitamin W/ Minerals Tab) 1 tab DAILY PO 11/30/17 09:00 12/30/17 08:59 12/02/17 09:01 1 TAB Aspirin (Ecotrin Tab) 81 mg QAM PO 12/01/17 09:00 12/31/17 08:59 12/02/17 09:01 81 MG Prednisone (PredniSONE TAB) 5 mg DAILY PO 12/01/17 09:00 12/31/17 08:59 12/02/17 09:02 5 MG Sodium Chloride 1,000 ml @ 15 mls/hr Q24H IV 11/30/17 14:00 12/30/17 13:59 12/01/17 14:06 15 MLS/HR Pantoprazole Sodium (Protonix Tab) 40 mg DAILY PO 12/01/17 20:30 12/31/17 20:29 12/02/17 09:01 40 MG Objective Vital Signs Date Time Temp Pulse Resp B/P (MAP) Pulse Ox O2 Delivery O2 Flow Rate FiO2 12/02/17 06:59 36.6 65 16 144/77 (99) 94 Room Air 12/01/17 23:26 Room Air 12/01/17 23:26 162/88 (112) 12/01/17 22:53 36.6 71 16 172/86 (114) 93 Room Air 12/01/17 22:10 75 131/78 (95) 93 Room Air 12/01/17 20:21 72 184/88 (120) 93 Room Air 12/01/17 20:20 Room Air 12/01/17 16:08 36.7 68 19 168/81 (110) 94 Room Air 12/01/17 15:34 66 95 12/01/17 15:15 Room Air Physical Exam General Appearance: no apparent distress Respiratory/Chest: no respiratory distress, no accessory muscle use Extremities: + pertinent finding (R LE BKA) Neurologic/Psychiatric: + pertinent finding (L hand glass cut off tender strength decreased) Laboratory Results Last 24 Hours Test 12/02/17 05:12 White Blood Count 8.46 K/uL Red Blood Count 3.29 M/uL Hemoglobin 11.1 g/dL Hematocrit 33.3 % Mean Corpuscular Volume 101.2 fL Mean Corpuscular Hemoglobin 33.7 pg Mean Corpuscular Hemoglobin Concent 33.3 g/dl RDW Standard Deviation 54.1 fL RDW Coefficient of Variation 14.8 % Platelet Count 168 K/uL Mean Platelet Volume 11.2 fL Sodium Level 137 mmol/L Potassium Level 4.2 mmol/L Chloride Level 105 mmol/L Carbon Dioxide Level 26 mmol/L Anion Gap 6.0 mmol/L Blood Urea Nitrogen 25 mg/dl Creatinine 1.36 mg/dl Est Creatinine Clear Calc Drug Dose 37.4 ml/min Estimated GFR () 56.6 Estimated GFR (Non- 48.8 BUN/Creatinine Ratio 18.2 Random Glucose 83 mg/dl Calcium Level 7.9 mg/dl Assessment and Plan This is an 82 year old male with a PMH of CAD s/p CABG x4, HTN, HLD, CKD stage 3 , hx. of R BKA - presented for an incarcerated hernia repair; subsequently transferred to the ICU due to L sided weakness and found to have an acute vs.subacute CVA Acute CVA 12/02 * PT/OT * aspirin, statin * outpatient vascular follow-up * adding 5mg of Lisinopril 12/01 * continue aspirin, statin * PT/OT/speech * appreciate neurology input * outpatient vascular surgery * all mild hypertension - will likely add MATTHEW-I once closer to discharge 11/30 * Brain MRI - right cerebral hemisphere involving the frontal and parietal lobes * patient with continued L sided weakness; able to move arms, but minimal glass cut off tender strength * added back aspirin - okay with general surgery * continue Lipitor * PT/OT/speech ordered * carotid U/S done - 70% stenosis bilaterally * echo ordered * further management as per neurology Incarcerated Hernia Repair Partial Small Bowel Obstruction 12/02 * appreciate general surgery input * continue clears * awaiting bowel movement 12/01 * clears for now * once passing gas, +BM, can advance * appreciate gen surg input 11/30 * s/p repair, POD #1 * as per general surgery, doing well; will start clears * advance diet as tolerated * pain is controlled, monitor H/H and electrolytes Carotid Artery Stenosis * bilateral carotid artery stenosis ~ 70% * no vascular intervention with recent CVA and recent incarcerated hernia repair * added back aspirin * continue statin CAD s/p CABG * s/p CABG x4 in June 2016 * will continue aspirin, statin, b-anabel * no active chest pain, no acute issues noted Leukocytosis - resolved * unlikely infectious - stress related to surgery + steroid use * will monitor CKD stage 3 * creatinine 1.7, baseline is probably closer to 1.6 * gentle IV hydration HTN * labile blood pressure lloyd-operatively * continue b-anabel DVT ppx * Lovenox FULL CODE
[2017-12-02] MEDS ORDERED: LISINOPRIL 5 MG TAB PO ONE (10:45)
--- NOTE | 2017-12-02 13:09 | PROGRESS NOTE ---
DATE: 12/02/2017 SUBJECTIVE: I am seeing Mr. Barrera in followup of a right MCA infarction that occurred in the setting of bilateral high-grade stenosis and hypotension and hypoperfusion during an operative procedure. He feels he is improving. No headache. PHYSICAL EXAMINATION: GENERAL: He is awake and alert. VITAL SIGNS: 36.6, 65, 16, 144/77. NEUROLOGIC: There is normal visual field. No facial asymmetry. No difficulty with speech or language. The wrist extensors are about 3, finger extensors 3-, deltoid, biceps, triceps about 4, left lower extremity appears full. No asymmetric sensory loss to light touch. IMPRESSION: Patchy right middle cerebral artery infarction related to hypoperfusion superimposed on high-grade bilateral carotid stenosis. Continue antiplatelet therapy. Recommend vascular surgery consult. The patient will need surgery when he is medically stable. We will sign off at present. MARIA T
[2017-12-02 15:32] VITALS: BP 147/77; PULSE 66; TEMP 36.6; O2SAT 95
[2017-12-02] MEDS: ATORVASTATIN 40 MG TAB PO SCH (21:06)
[2017-12-02 23:13] VITALS: BP 157/71; PULSE 64; TEMP 36.6; O2SAT 94
[2017-12-03 06:01] LABS: HEMATOCRIT 35.7 % (42-52); HEMOGLOBIN 11.8 g/dL (14.0-18.0); MEAN CELL VOLUME 100.8 fL (80-100); MEAN CORPUSCULAR HEMOGLOBIN 33.3 pg (25-34); MEAN CORPUSCULAR HGB CONC 33.1 g/dl (32-36); MEAN PLATELET VOLUME 10.9 fL (7.4-10.4); PLATELET COUNT 220 K/uL (130-400); RED CELL DISTRIBUTION WIDTH SD 53.1 fL (36.4-46.3); WHITE BLOOD COUNT 7.94 K/uL (4.8-10.8)
[2017-12-03 06:26] LABS: CALCIUM 8.5 mg/dl (8.5-10.1); CREATININE 1.48 mg/dl (0.60-1.40); POTASSIUM 4.1 mmol/L (3.5-5.1)
[2017-12-03 07:06] VITALS: BP 161/82; PULSE 72; TEMP 36.7; O2SAT 95
[2017-12-03 08:04] VITALS: BP 156/88; PULSE 66; TEMP 36.6; O2SAT 96
[2017-12-03] MEDS: PANTOprazole SOD 40 MG TAB PO SCH (08:07)
[2017-12-03] MEDS: METOPROLOL TARTRATE 25 MG TAB PO SCH ×2 (08:07→21:21)
[2017-12-03] MEDS: LISINOPRIL 5 MG TAB PO SCH (08:07)
[2017-12-03] MEDS: CEROVITE ADV FORMULA TAB PO SCH (08:08)
[2017-12-03] MEDS: ENOXAPARIN 30 MG/0.3 ML SYR SQ SCH (08:08)
[2017-12-03] MEDS: ASPIRIN 81 MG ECTAB PO SCH (08:08)
[2017-12-03 09:14] VITALS: O2SAT 96
[2017-12-03] MEDS: OXYCODONE/ACETAMINOPHEN 5-325 TAB PO PRN (09:32)
[2017-12-03] MEDS ORDERED: AMLODIPINE BESYLATE 5 MG TAB PO ONE (10:30)
[2017-12-03] MEDS ORDERED: SODIUM CHLORIDE 0.9% 1000ML 1,000 ML IV SCH (10:30)
--- NOTE | 2017-12-03 11:15 | Progress Note ---
Subjective Date of Service: Dec 03, 2017. Subjective Pt evaluation today including: conversation w/ patient, physical exam, lab review, review of studies, review of inpatient medication list Saw/examined the patient in room 378 He is seated in a chair passing gas no BM as of yet Problem List Medical Problems: (1) Abscess Status: Acute (2) Cellulitis and abscess of leg Status: Acute (3) Incarcerated umbilical hernia Status: Acute (4) Small bowel obstruction Status: Acute Review of Systems Constitutional: + weakness, No fever, No chills Respiratory: No shortness of breath Cardiac: No chest pain Abdomen: + constipation, No pain, No nausea, No vomiting, No diarrhea, No GI bleeding Medications Current Inpatient Medications Medications (Trade) Dose Ordered Sig/Yandel Route Start Time Stop Time Status Last Admin Dose Admin Oxycodone/ Acetaminophen (Percocet 5-325mg Tab) 1 tab Q4H PRN PO 11/29/17 06:30 12/13/17 06:29 12/03/17 09:32 1 TAB Morphine Sulfate (MoRPHine SULFATE INJ) 2 mg Q1H PRN IV 11/29/17 06:30 12/13/17 06:29 11/30/17 01:49 2 MG Enoxaparin Sodium (Lovenox Inj) 30 mg QAM SQ 11/30/17 09:00 12/30/17 08:59 12/03/17 08:08 30 MG Metoprolol Tartrate (Lopressor Tab) 25 mg BID PO 11/29/17 21:00 12/29/17 20:59 12/03/17 08:07 25 MG Atorvastatin Calcium (Lipitor Tab) 40 mg HS PO 11/29/17 21:00 12/29/17 20:59 12/02/17 21:06 40 MG Folic Acid (Folvite Tab) 1 mg MoTuWeThFrSa PO 11/29/17 17:00 12/29/17 16:59 12/01/17 16:57 1 MG Nitroglycerin (Nitrostat Tab) 0.4 mg UD PRN UT 11/29/17 16:15 12/29/17 16:14 Multivitamins/ Minerals (Multivitamin W/ Minerals Tab) 1 tab DAILY PO 11/30/17 09:00 12/30/17 08:59 12/03/17 08:08 1 TAB Aspirin (Ecotrin Tab) 81 mg QAM PO 12/01/17 09:00 12/31/17 08:59 12/03/17 08:08 81 MG Prednisone (PredniSONE TAB) 5 mg DAILY PO 12/01/17 09:00 12/31/17 08:59 12/03/17 08:08 5 MG Pantoprazole Sodium (Protonix Tab) 40 mg DAILY PO 12/01/17 20:30 12/31/17 20:29 12/03/17 08:07 40 MG Lisinopril (Zestril Tab) 5 mg QAM PO 12/03/17 09:00 01/02/18 08:59 12/03/17 08:07 5 MG Sodium Chloride 1,000 ml @ 80 mls/hr [id number] IV 12/03/17 10:30 12/03/17 22:59 Objective Vital Signs Date Time Temp Pulse Resp B/P (MAP) Pulse Ox O2 Delivery O2 Flow Rate FiO2 12/03/17 09:14 96 Room Air 12/03/17 08:04 36.6 66 14 156/88 (110) 96 Room Air 12/03/17 07:20 Room Air 12/03/17 07:06 36.7 72 16 161/82 (108) 95 Room Air 12/03/17 00:35 Room Air 12/02/17 23:13 36.6 64 14 157/71 (99) 94 Room Air 12/02/17 15:32 36.6 66 18 147/77 (100) 95 Room Air 12/02/17 15:10 Room Air Physical Exam General Appearance: no apparent distress Respiratory/Chest: no respiratory distress, no accessory muscle use Cardiovascular: regular rate, rhythm, no edema, no murmur Neurologic/Psychiatric: alert, normal mood/affect, + pertinent 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) Laboratory Results Last 24 Hours Test 12/03/17 05:36 White Blood Count 7.94 K/uL Red Blood Count 3.54 M/uL Hemoglobin 11.8 g/dL Hematocrit 35.7 % Mean Corpuscular Volume 100.8 fL Mean Corpuscular Hemoglobin 33.3 pg Mean Corpuscular Hemoglobin Concent 33.1 g/dl RDW Standard Deviation 53.1 fL RDW Coefficient of Variation 15.0 % Platelet Count 220 K/uL Mean Platelet Volume 10.9 fL Sodium Level 136 mmol/L Potassium Level 4.1 mmol/L Chloride Level 104 mmol/L Carbon Dioxide Level 25 mmol/L Anion Gap 7.0 mmol/L Blood Urea Nitrogen 23 mg/dl Creatinine 1.48 mg/dl Est Creatinine Clear Calc Drug Dose 34.3 ml/min Estimated GFR () 51.1 Estimated GFR (Non- 44.1 BUN/Creatinine Ratio 15.7 Random Glucose 92 mg/dl Calcium Level 8.5 mg/dl Assessment and Plan This is an 82 year old male with a PMH of CAD s/p CABG x4, HTN, HLD, CKD stage 3 , hx. of R BKA - presented for an incarcerated hernia repair; subsequently transferred to the ICU due to L sided weakness and found to have an acute vs.subacute CVA Acute CVA 12/03 * current plan is to continue aspirin, statin * continue PT/OT * add Lisinopril to outpatient regimen * outpatient neurology and vascular surgery follow-up 12/02 * PT/OT * aspirin, statin * outpatient vascular follow-up * adding 5mg of Lisinopril 12/01 * continue aspirin, statin * PT/OT/speech * appreciate neurology input * outpatient vascular surgery * all mild hypertension - will likely add MATTHEW-I once closer to discharge 11/30 * Brain MRI - right cerebral hemisphere involving the frontal and parietal lobes * patient with continued L sided weakness; able to move arms, but 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 * added back aspirin - okay with general surgery * continue Lipitor * PT/OT/speech ordered * carotid U/S done - 70% stenosis bilaterally * echo ordered * further management as per neurology Incarcerated Hernia Repair Partial Small Bowel Obstruction 12/03 * clears for now * no BM as of yet * would defer to surgery regarding Dulcolax 12/02 * appreciate general surgery input * continue clears * awaiting bowel movement 12/01 * clears for now * once passing gas, +BM, can advance * appreciate gen surg input 11/30 * s/p repair, POD #1 * as per general surgery, doing well; will start clears * advance diet as tolerated * pain is controlled, monitor H/H and electrolytes Carotid Artery Stenosis * bilateral carotid artery stenosis ~ 70% * no vascular intervention with recent CVA and recent incarcerated hernia repair * added back aspirin * continue statin CAD s/p CABG * s/p CABG x4 in June 2016 * will continue aspirin, statin, b-anabel * no active chest pain, no acute issues noted Leukocytosis - resolved * unlikely infectious - stress related to surgery + steroid use * will monitor CKD stage 3 * creatinine 1.7, baseline is probably closer to 1.6 * gentle IV hydration HTN * labile blood pressure lloyd-operatively * continue b-anabel DVT ppx * Lovenox FULL CODE
--- NOTE | 2017-12-03 14:23 | Surgery Progress Note ---
Surgery Progress Note Date of Service Dec 03, 2017. Subjective Post OP Day: 4 (s/p incarcerated umbilical hernia with SB resection) + feeling well, + complaints (swelling in the left hand and left foot), + flatus , + pain controlled, + diet (clear liquids), No chest pain, No SOB, No bowel movement, No nausea, No vomiting Objective Vital Signs: Date Time Temp Pulse Resp B/P (MAP) Pulse Ox O2 Delivery O2 Flow Rate FiO2 12/03/17 09:14 96 Room Air 12/03/17 08:04 36.6 66 14 156/88 (110) 96 Room Air 12/03/17 07:20 Room Air 12/03/17 07:06 36.7 72 16 161/82 (108) 95 Room Air 12/03/17 00:35 Room Air 12/02/17 23:13 36.6 64 14 157/71 (99) 94 Room Air 12/02/17 15:32 36.6 66 18 147/77 (100) 95 Room Air 12/02/17 15:10 Room Air General Appearance: WD/WN, no apparent distress Head: normocephalic, atraumatic Neck: trachea midline Respiratory/Chest: no respiratory distress, no accessory muscle use Abdomen: non distended, soft, no organomegaly, no pulsatile mass Incision(s): clean, dry Extremities: + swelling (Left hand), + pertinent finding Laboratory Results: Results Past 24 Hours Test 12/03/17 05:36 Range/Units White Blood Count 7.94 4.8-10.8 K/uL Red Blood Count 3.54 4.7-6.1 M/uL Hemoglobin 11.8 14.0-18.0 g/dL Hematocrit 35.7 42-52 % Mean Corpuscular Volume 100.8 80-100 fL Mean Corpuscular Hemoglobin 33.3 25-34 pg Mean Corpuscular Hemoglobin Concent 33.1 32-36 g/dl RDW Standard Deviation 53.1 36.4-46.3 fL RDW Coefficient of Variation 15.0 11.5-14.5 % Platelet Count 220 130-400 K/uL Mean Platelet Volume 10.9 7.4-10.4 fL Sodium Level 136 136-145 mmol/L Potassium Level 4.1 3.5-5.1 mmol/L Chloride Level 104 98-107 mmol/L Carbon Dioxide Level 25 21-32 mmol/L Anion Gap 7.0 3-11 mmol/L Blood Urea Nitrogen 23 7-18 mg/dl Creatinine 1.48 0.60-1.40 mg/dl Est Creatinine Clear Calc Drug Dose 34.3 ml/min Estimated GFR () 51.1 Estimated GFR (Non- 44.1 BUN/Creatinine Ratio 15.7 10-20 Random Glucose 92 70-99 mg/dl Calcium Level 8.5 8.5-10.1 mg/dl Assessment & Plan POD # 4 s/p repair of incarcerated umbilical hernia with small bowel resection, primary anastomosis - no leukocytosis - tolerating clear liquids - + flatus, no bowel movement Plan: Advance diet to full liquids Decrease IV fluids to 50 mls/hr Encourage ambulation and OOB to chair Continue medical management Dr. Cerna has seen and examined patient, agrees with above.
[2017-12-03] MEDS ORDERED: OXYC-57 PO (14:50)
--- NOTE | 2017-12-03 14:54 | Discharge Instructions ---
Discharge Instructions Date of Service Dec 03, 2017. Admission Reason for Admission: Incarcerated Umbilical Hernia Discharge Discharge Diagnosis / Problem: same Discharge Goals Goal(s): Decrease discomfort, Improve function Activity Recommendations Activity Limitations: per Instructions/Follow-up section No heavy lifting over 10 pounds for 6 weeks No strenuous activity until cleared by surgeon No submerging incisions underwater for 2 weeks (no bathing, swimming, or hot tubs) No driving while taking narcotic pain medication or until you are pain free . Instructions / Follow-Up Instructions / Follow-Up You may shower when you get home. Gently pat incision dry. Leave steri strips on incision for 7 days and then remove. They may fall off on their own that is okay. Walking and light activity is encouraged to prevent blood clots from forming in legs. You will be given narcotic pain medication (Percocet) to take as needed for moderate to severe pain. This medication may make you drowsy and can cause constipation. You may take OTC stool softener (Colace) and drink plenty of water to combat constipation. Follow-up in surgical office in 1 week, please call office at [phone] to make an appointment. Current Hospital Diet Patient's current hospital diet: Clear Liquid Diet Discharge Diet Recommended Diet: Regular Diet Procedures Procedures Performed: repair of incarcerated umbilical hernia; partial small bowel resection Pending Studies Studies pending at discharge: no Laboratory Results Hemoglobin A1c Test 12/01/17 05:11 Range/Units Estimated Average Glucose 117 mg/dl Hemoglobin A1c 5.7 H 4.5-5.6 % Lipid Panel Test 12/01/17 05:11 Range/Units Triglycerides Level 86 0-150 mg/dl Cholesterol Level 73 0-200 mg/dl HDL Cholesterol 39 mg/dl Cholesterol/HDL Ratio 1.9 LDL Cholesterol, Calculated 17 mg/dl Medical Emergencies . Who to Call and When: Medical Emergencies: If at any time you feel your situation is an emergency, please call 911 immediately. . Non-Emergent Contact Non-Emergency issues call your: Primary Care Provider, Surgeon Call Non-Emergent contact if: you have a fever, temperature is above 101, your pain is not controlled, your pain is worsening, your pain is unusual for you, wound has increased drainage, wound has increased redness, wound has increased pain . "Provider Documentation" section prepared by Alyx Updyke. . [place] Drug Monitoring Program Search Results: patient reviewed within database, no issues identified
[2017-12-03 15:48] VITALS: BP 128/72; PULSE 59; TEMP 36.5; O2SAT 98
[2017-12-03 21:19] VITALS: BP 166/88; PULSE 59
[2017-12-03] MEDS: ATORVASTATIN 40 MG TAB PO SCH (21:21)
[2017-12-03 22:53] VITALS: BP 192/83; PULSE 70; TEMP 36.5; O2SAT 97
[2017-12-04 01:03] VITALS: BP 171/84
[2017-12-04] MEDS: OXYCODONE/ACETAMINOPHEN 5-325 TAB PO PRN ×2 (01:11→21:06)
[2017-12-04 07:17] VITALS: BP 162/75; PULSE 74; TEMP 36.7; O2SAT 95
[2017-12-04 08:20] LABS: CALCIUM 8.1 mg/dl (8.5-10.1); CREATININE 1.4 mg/dl (0.60-1.40); POTASSIUM 4.2 mmol/L (3.5-5.1)
[2017-12-04] MEDS: LISINOPRIL 5 MG TAB PO SCH (08:39)
[2017-12-04] MEDS: ASPIRIN 81 MG ECTAB PO SCH (08:39)
[2017-12-04] MEDS: CEROVITE ADV FORMULA TAB PO SCH (08:39)
[2017-12-04] MEDS: PANTOprazole SOD 40 MG TAB PO SCH (08:39)
[2017-12-04] MEDS: METOPROLOL TARTRATE 25 MG TAB PO SCH ×2 (08:39→21:05)
[2017-12-04] MEDS: ENOXAPARIN 40 MG/0.4 ML SYR SQ SCH (08:40)
[2017-12-04 15:35] VITALS: BP 124/61; PULSE 76; TEMP 37.5; O2SAT 94
--- NOTE | 2017-12-04 15:37 | Surgery Progress Note ---
Surgery Progress Note Date of Service Dec 04, 2017. Subjective Post OP Day: 5 + feeling well, + flatus, No bowel movement, No nausea, No vomiting Objective Vital Signs: Date Time Temp Pulse Resp B/P (MAP) Pulse Ox O2 Delivery O2 Flow Rate FiO2 12/04/17 07:17 36.7 74 18 162/75 (104) 95 Room Air 12/04/17 07:15 Room Air 12/04/17 01:03 171/84 (113) 12/04/17 00:00 Room Air 12/03/17 22:53 36.5 70 17 192/83 (119) 97 Room Air 12/03/17 21:19 59 166/88 (114) 12/03/17 16:15 Room Air 12/03/17 15:48 36.5 59 19 128/72 (90) 98 Room Air Abdomen: normal bowel sounds, non distended, soft Incision(s): clean, dry, intact, no erythema, no drainage Laboratory Results: Results Past 24 Hours Test 12/04/17 07:24 Range/Units Sodium Level 137 136-145 mmol/L Potassium Level 4.2 3.5-5.1 mmol/L Chloride Level 106 98-107 mmol/L Carbon Dioxide Level 24 21-32 mmol/L Anion Gap 7.0 3-11 mmol/L Blood Urea Nitrogen 20 7-18 mg/dl Creatinine 1.40 0.60-1.40 mg/dl Est Creatinine Clear Calc Drug Dose 36.3 ml/min Estimated GFR () 54.6 Estimated GFR (Non- 47.1 BUN/Creatinine Ratio 14.4 10-20 Random Glucose 92 70-99 mg/dl Calcium Level 8.1 8.5-10.1 mg/dl Assessment & Plan S/P repair of incisional umbilical hernia with partial small bowel resection Had MRI confirmed CVA with weakness of left arm Medicine managing neuro status Vacular surgery team has evaluated and is planning interval CEA Tolerating full liquids, advance to regular diet If tolerates regular diet can D/C o home tomorrow with follow up with me in 2 weeks and vascular surgery as per their instructions
--- NOTE | 2017-12-04 15:38 | Surgery Consultation ---
Consultation Date of Service Dec 04, 2017. Chief Complaint BL ICAS, R hemispheric CVA History of Present Illness The patient is a 82 year old male with multiple medical problems, including RA, HTN, CAD, GERD, admitted after undergoing repair of incarcerated umbilical hernia by Dr Cerna 5 days ago, seen in consultation today for BL Carotid stenosis noted on US after having a R hemispheric CVA post operatively. Pt states no hx of CVA or TIA in past. States postoperatively he noted severe L hand weakness, which has improved, but not completely resolved. Denies MURPHY, fever, chills, chest pain, SOB,abd pain besides incisional pain, N/V, rest pain , claudication, other complaints. Of note, pt is post R BKA. US demonstrated elevated systolic velocities BL, with estimated stenosis of >70% . Vitals Vital Signs Past 12 Hours Date Time Temp Pulse Resp B/P (MAP) Pulse Ox O2 Delivery O2 Flow Rate FiO2 12/04/17 07:17 36.7 74 18 162/75 (104) 95 Room Air 12/04/17 07:15 Room Air Allergies Coded Allergies: Iodinated Diagnostic Agents (Verified Allergy, Unknown, HIVES, 11/29/17) Sulfa Antibiotics (Verified Allergy, Unknown, HIVES, 11/29/17) Dutasteride (Unverified Adverse Reaction, Unknown, Skin lesions, 11/29/17) Home Medications Scheduled Aspirin (Aspirin EC Low Dose), 81 MG PO QAM Atorvastatin (Lipitor), 40 MG PO HS Calcium-Magnesium W/ Vitamin D (Citracal Calcium+D Slow R), 1 TAB PO DAILY Folic Acid (Folvite), 1 MG PO [id number] Methotrexate (Methotrexate), 10 MG PO WK Metoprolol Tartrate (Lopressor) (Lopressor), 25 MG PO BID Multiple Vitamins W/ Minerals (Centrum Silver), 1 TAB PO DAILY Omeprazole (Prilosec), 20 MG PO DAILY Prednisone (Prednisone), 5 MG PO DAILY Scheduled PRN Nitroglycerin (Nitrostat), 0.4 MG UT UD PRN for Chest Pain Oxycodone/Acetaminophen 5MG/325MG (Percocet 5MG/325MG), 1 TABLET PO Q4H PRN for Pain Problem List Medical Problems: (1) BPH (benign prostatic hyperplasia) (2) CAD (coronary artery disease) (3) HLD (hyperlipidemia) (4) HTN (hypertension) (5) Rheumatoid arthritis (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 Surgical Problems: (1) History of lumbosacral spine surgery (2) Hx of CABG (3) S/P bilateral inguinal hernia repair Surgical / Medical History Hx Cardiac Surgery: Yes Hx Abdominal Surgery: No Hx Cancer Surgery: No Hx Thoracic Surgery: No Hx Orthopedic: No Hx Urinary Tract Surgery: No HX Other Surgery: No Past Medical/Surgical History: Heart Disease, Hypertension Family History + HTN, CAD Social History Smoking Status: Former Smoker Hx Tobacco Use In Past Year?: No (no family avaliable patient unable to answer - intubated) Hx Alcohol Use - Type & Amnt: No (no family avaliable patient unable to answer - intubated) Hx Substance Use -Type & Amnt: No (no family avaliable patient unable to answer - intubated) Review of Systems Constitutional: + malaise, No chills, No fever Skin: No change in color Eyes: No visual changes ENMT: No sore throat Respiratory: No cough, No TINAJERO, No hemoptysis, No short of breath Cardiovascular: + edema (LLE), No chest pain, No palpitations, No syncope, No intermittent claudication Gastrointestinal: No abdominal pain, No nausea, No vomiting Neurologic: + weakness (L arm/hand), No dizziness, No headache, No lethargy Physical Exam Constitutional: General Apperance: well-nourished, well-developed Level of Distress: NAD, chronically ill (mildly) Psychiatric: Mental Status: active & alert, normal mood, normal affect Orientation: oriented except where noted, to time, to place, to person Memory: recent memory normal, remote memory normal Head: normocephalic, atraumatic Eyes: EOM: EOMI ENMT: normal ENT inspection, hearing grossly normal Neck: supple, trachea midline Lungs: Respiratory effort: no dyspnea Auscultation: no rales/crackles, no rhonchi, decreased breath sounds Cardiovascular: Apical Impulse: not displaced Heart Auscultation: RRR, no rubs, no gallops Peripheral Pulses: Pulses: full and equal, in all extremities except if noted Bruits: none appreciated Carotid Pulse: normal on the left, normal on the right Brachial Pulses: normal on the left, normal on the right Radial Pulse: normal on the left, normal on the right Femoral Pulse: normal on the left, normal on the right Posterior Tibialis Pulse: pertinent finding (nonpalpable LLE, RLE BKA) Dorsalis Pedis Pulse: pertinent finding (RLE BKA, nonpalpable LLE) Abdomen: Bowel Sounds: normal Inspection & Palpation: soft, non-distended, pertinent finding (tenderness at umbilicus d/t recent surgery) Musculoskeletal: pertinent finding (LUE strength 3/5, RUE 5/5) Extremities: Upper Right: no cyanosis, no edema, no varicosities Upper Left: no cyanosis, no edema, no varicosities Lower Right: no cyanosis, no edema, no varicosities Lower Left: no cyanosis, no varicosities, edema (+2) Neurologic: Cranial Nerves: grossly intact Sensation: grossly intact Assessment and Plan ASSESSMENT and PLAN: BL ICAS R hemispheric CVA Pt discussed with Dr Haque, recommends pt to undergo R CEA in 4-6 wks. Will obtain CTA prior to office visit in 4 weeks to discuss. Pt agreeable. Please call if needed.
--- NOTE | 2017-12-04 15:58 | Progress Note ---
Medicine Progress Note Date & Time of Visit: Dec 04, 2017 at 15:35. Subjective Patient doing well, states he had a fall last night due to his prosthesis being on wrong and the slipper slipping off his left foot. No other complaints. Appetite is fair. No other overnight events noted. No BM but passing flatus. Objective Physical Exam: GENERAL: Patient is in no acute distress. HEENT: No acute trauma, normocephalic, mucous membranes moist, no nasal congestion, no scleral icterus. NECK: No stridor, trachea is midline. LUNGS: Clear to auscultation bilaterally, no wheeze, no rhonchi, breath sounds equal. HEART: Without murmurs gallops or rubs, regular rate and rhythm. ABDOMEN: Soft, nontender, bowel sounds positive; mid incision with no surrounding erythema or induration EXTREMITIES: No cyanosis; LLE trace edema, RLE with prosthesis and previous amputation NEUROLOGIC: Oriented x 3, LUE hand weakness. SKIN: No rash, no jaundice, no diaphoresis. 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 -carotid U/S done - 70% stenosis bilaterally -TTE: -Neurology consulted, recommend vascular eval and continuation of current meds as well as outpatient follow up -continue aspirin, statin, lisinopril -continue PT/OT -vascular surgery consulted POSTOPERATIVE S/P INCARCERATED HERNIA REPAIR -s/p repair and small segment small bowel resection, POD #5 -presented with Partial Small Bowel Obstruction -still awaiting bowel movement but continues to pass flatus -diet advance to regular today CAROTID ARTERY STENOSIS: -bilateral carotid artery stenosis ~ 70% -no emergent vascular intervention with recent CVA and recent incarcerated hernia repair -started back on aspirin and statin CAD: s/p CABG -s/p CABG x4 in June 2016 -continue aspirin, statin, b-anabel -no acute symptoms noted LEUKOCYTOSIS: -unlikely infectious - likely stress related to surgery + steroid use -resolved CKD STAGE III: -creatinine baseline close to 1.6, currently 1.4 -was given gentle IV hydration and has been taking adequate PO. HTN -labile blood pressure lloyd-operatively -continued on b-anabel -started on low dose lisinopril Dispo: No contraindication to discharge home tomorrow or when stable from surgical standpoint. Will need outpatient followup with PCP, Neurology, and Vascular surgery and a new script for lisinopril Current Inpatient Medications: Current Inpatient Medications Medications (Trade) Dose Ordered Sig/Yandel Route Start Time Stop Time Status Last Admin Dose Admin Oxycodone/ Acetaminophen (Percocet 5-325mg Tab) 1 tab Q4H PRN PO 11/29/17 06:30 12/13/17 06:29 12/04/17 01:11 1 TAB Morphine Sulfate (MoRPHine SULFATE INJ) 2 mg Q1H PRN IV 11/29/17 06:30 12/13/17 06:29 11/30/17 01:49 2 MG Metoprolol Tartrate (Lopressor Tab) 25 mg BID PO 11/29/17 21:00 12/29/17 20:59 12/04/17 08:39 25 MG Atorvastatin Calcium (Lipitor Tab) 40 mg HS PO 11/29/17 21:00 12/29/17 20:59 12/03/17 21:21 40 MG Folic Acid (Folvite Tab) 1 mg MoTuWeThFrSa PO 11/29/17 17:00 12/29/17 16:59 12/03/17 16:31 1 MG Nitroglycerin (Nitrostat Tab) 0.4 mg UD PRN UT 11/29/17 16:15 12/29/17 16:14 Multivitamins/ Minerals (Multivitamin W/ Minerals Tab) 1 tab DAILY PO 11/30/17 09:00 12/30/17 08:59 12/04/17 08:39 1 TAB Aspirin (Ecotrin Tab) 81 mg QAM PO 12/01/17 09:00 12/31/17 08:59 12/04/17 08:39 81 MG Prednisone (PredniSONE TAB) 5 mg DAILY PO 12/01/17 09:00 12/31/17 08:59 12/04/17 08:39 5 MG Pantoprazole Sodium (Protonix Tab) 40 mg DAILY PO 12/01/17 20:30 12/31/17 20:29 12/04/17 08:39 40 MG Lisinopril (Zestril Tab) 5 mg QAM PO 12/03/17 09:00 01/02/18 08:59 12/04/17 08:39 5 MG Enoxaparin Sodium (Lovenox Inj) 40 mg DAILY SQ 12/04/17 09:00 01/03/18 08:59 12/04/17 08:40 40 MG
[2017-12-04] MEDS: ATORVASTATIN 40 MG TAB PO SCH (21:05)
[2017-12-04 21:06] VITALS: BP 160/89; PULSE 84
--- NOTE | 2017-12-04 21:12 | Progress Note ---
Post ICU Progress Note Date & Time Dec 04, 2017 at 21:12 Vital Signs Vital Signs Past 12 Hours Date Time Temp Pulse Resp B/P (MAP) Pulse Ox O2 Delivery O2 Flow Rate FiO2 12/04/17 21:06 84 160/89 (112) 12/04/17 15:40 Room Air 12/04/17 15:35 37.5 76 18 124/61 (82) 94 Room Air Notes Mental Status: alert / awake, participated in evaluation Nausea / Vomiting: improving with treatment Pain: improving with treatment Airway Patency, RR, SpO2: stable & adequate BP & HR: stable & adequate Patient is an 82-year-old male who underwent emergent abdominal surgery for incarcerated hernia. Patient awoke from anesthesia with a LEFT-sided hemiparesis. During evaluation, the patient was found to have some small CVA lesions to the RIGHT sided watershed region. In addition, the patient had high- grade stenosis of the carotid arteries which was concerning during times of hypotension and bradycardia. Regardless, the patient has had slight improvement of his symptoms. On evaluation today, the patient is awake, alert, and oriented. He complains of diffuse, vague, achy pain all over. He denies any specificity of location of symptoms. He does complain of some residual Left-sided arm and leg weakness. 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 Otherwise, the patient reports that he is feeling as though he is improving. He is ambulating with a cane. He offers no other complaints at this point. Consider outpatient follow up in 1 to 2 weeks with: General Surgery, Neurology , PCP Repeat imaging needed: Per primary services. Follow up cultures: N/A Reviewed progress notes, labs, and inpatient medication list Continue current management Additional recommendations: None at this time. Please feel free to reconsult as needed. Consults & Procedures Consultants: General Surgery: Dr. Cerna Neurology: Dr. Baker Procedures: Repair of incisional umbilical hernia with partial small bowel resection
[2017-12-04 22:31] VITALS: BP 125/67; PULSE 66; TEMP 36.7; O2SAT 93
[2017-12-05] MEDS: OXYCODONE/ACETAMINOPHEN 5-325 TAB PO PRN ×2 (03:48→13:28)
[2017-12-05 07:57] VITALS: BP 140/70; PULSE 60; TEMP 36.5; O2SAT 96
[2017-12-05] MEDS: CEROVITE ADV FORMULA TAB PO SCH (08:42)
[2017-12-05] MEDS: ASPIRIN 81 MG ECTAB PO SCH (08:42)
[2017-12-05] MEDS: ENOXAPARIN 40 MG/0.4 ML SYR SQ SCH (08:42)
[2017-12-05] MEDS: PANTOprazole SOD 40 MG TAB PO SCH (08:42)
[2017-12-05] MEDS: LISINOPRIL 5 MG TAB PO SCH (08:42)
[2017-12-05] MEDS: METOPROLOL TARTRATE 25 MG TAB PO SCH (08:42)
[2017-12-05 08:45] VITALS: PULSE 72
[2017-12-05 08:48] VITALS: O2SAT 96
--- NOTE | 2017-12-05 09:53 | Surgery Progress Note ---
Surgery Progress Note Date of Service Dec 05, 2017. Subjective Post OP Day: POD # 6 + feeling well, + ambulating (just finished ambulating with PT with walker, did well, did better than with cane yesterday), + flatus, + diet (regular diet), No complaints, No chest pain, No SOB, No bowel movement, No nausea, No vomiting Objective Vital Signs: Date Time Temp Pulse Resp B/P (MAP) Pulse Ox O2 Delivery O2 Flow Rate FiO2 12/05/17 08:48 96 Room Air 12/05/17 08:45 72 12/05/17 07:57 36.5 60 14 140/70 (93) 96 Room Air 12/05/17 07:25 Room Air 12/04/17 23:30 Room Air 12/04/17 22:31 36.7 66 17 125/67 (86) 93 Room Air 12/04/17 21:06 84 160/89 (112) 12/04/17 15:40 Room Air 12/04/17 15:35 37.5 76 18 124/61 (82) 94 Room Air General Appearance: WD/WN, no apparent distress Head: normocephalic, atraumatic Neck: trachea midline Respiratory/Chest: lungs clear, normal breath sounds, no respiratory distress, no accessory muscle use Cardiovascular: regular rate, rhythm, no murmur Abdomen: non tender, non distended, soft, no organomegaly, no pulsatile mass Incision(s): clean, dry, findings (steri strips present with dry blood no surrounding erythema) Assessment & Plan POD # 6 s/p repair of incarcerated umbilical hernia with small bowel resection, primary anastomosis - no leukocytosis - tolerating regular diet - + flatus, no bowel movement Had MRI confirmed CVA with weakness of left arm Bilateral Carotid artery stenosis >70% -Vacular surgery team has evaluated and is planning interval Right CEA in 4- 6 wks. Plan: Okay for discharge home today Discharge instructions reviewed Patient to follow up with PCP , vascular surgery, and in our office in 2 weeks. Will await hospitalist radha today prior to discharge and Rx for Lisinopril Plan for home with PT Discussed with DR. Cerna who agrees with above
[2017-12-05 10:18] VITALS: BP 140/70; PULSE 72; TEMP 36.5; O2SAT 96
[2017-12-05] MEDS ORDERED: LSN5 PO (10:53)
--- NOTE | 2017-12-05 11:02 | Consultant Recommendations ---
Director Environmental Recommendations Date of Service Dec 05, 2017. Director Environmental Recommendations Patient to follow up with Vascular Surgery in 4 weeks, needs CTA as well as outpatient. Patient advised to follow up with his PCP in 1 week Patient to follow up with Tiffanie Baker (Neurology) on December 25 at 11 AM Continue with lisinopril, aspirin, atorvastatin, and metoprolol
--- NOTE | 2017-12-05 19:04 | Progress Note ---
Medicine Progress Note Date & Time of Visit: Dec 05, 2017 at 19:04. Objective Physical Exam: GENERAL: Patient is in no acute distress. HEENT: No acute trauma, normocephalic, mucous membranes moist, no nasal congestion, no scleral icterus. NECK: No stridor, trachea is midline. LUNGS: Clear to auscultation bilaterally, no wheeze, no rhonchi, breath sounds equal. HEART: Without murmurs gallops or rubs, regular rate and rhythm. ABDOMEN: Soft, nontender, bowel sounds positive; mid incision with no surrounding erythema or induration EXTREMITIES: No cyanosis; LLE trace edema, RLE with prosthesis and previous amputation NEUROLOGIC: Oriented x 3, LUE hand weakness. SKIN: No rash, no jaundice, no diaphoresis. Assessment & Plan ACUTE CVA: -MRI Brain: right cerebral hemisphere involving the frontal and parietal lobes -L sided weakness; able to move arm and leg, but minimal timber framer strength -carotid U/S done - 70% stenosis bilaterally -TTE: -Neurology consulted, recommend vascular eval and continuation of current meds as well as outpatient follow up -continue aspirin, statin, lisinopril -continue PT/OT -vascular surgery consulted POSTOPERATIVE S/P INCARCERATED HERNIA REPAIR -s/p repair and small segment small bowel resection, POD #5 -presented with Partial Small Bowel Obstruction -still awaiting bowel movement but continues to pass flatus -diet advance to regular today CAROTID ARTERY STENOSIS: -bilateral carotid artery stenosis ~ 70% -no emergent vascular intervention with recent CVA and recent incarcerated hernia repair -started back on aspirin and statin CAD: s/p CABG -s/p CABG x4 in June 2016 -continue aspirin, statin, b-anabel -no acute symptoms noted LEUKOCYTOSIS: -unlikely infectious - likely stress related to surgery + steroid use -resolved CKD STAGE III: -creatinine baseline close to 1.6, currently 1.4 -was given gentle IV hydration and has been taking adequate PO. HTN -labile blood pressure lloyd-operatively -continued on b-anabel -started on low dose lisinopril Dispo: No contraindication to discharge home tomorrow or when stable from surgical standpoint. Will need outpatient followup with PCP, Neurology, and Vascular surgery and a new script for lisinopril
--- NOTE | 2017-12-06 07:55 | EDITING REQUIRED CODING QUERY ---
CODING QUERY To promote full compliance with coding requirements relating to patient care, provider participation is requested in all cases of client technical specialist uncertainty. Please assist us with the question(s) below: Coding Question(s): The body of the Operative Report on 11/29/17 documents an area of questionable ischemia on the small bowel. Please clarify below, in your clinical opinion. ( X ) Acute Small Bowel Ischemia ( ) Chronic Small Bowel Ischemia ( ) Other: Specify Physician's Response(s): Transient ischemia due to hernia and incarceration Thank you Juju Manuel Principal Diagnosis: "_that condition established after study, to be chiefly responsible for occasioning the admission of the patient to the hospital for care." Co-Existing Principal Diagnosis: "_when two or more diagnoses equally meet the criteria for principal diagnosis as determined by the circumstances of admission, diagnostic work up, and/or therapy provided, and the Alphabetic Index, Tabular List, or another coding guideline does not provide sequencing direction, any one of the diagnoses may be sequenced first." "When the physician has documented what appears to be a current diagnosis in the body of the record, but has not included the diagnosis in the final diagnostic statement, the physician should be asked whether the diagnosis should be added." (Source Coding [facility] 2 QTR90. p3-4)
--- NOTE | 2017-12-07 09:08 | Discharge Summary ---
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 (5) Rheumatoid arthritis (6) BPH (benign prostatic hyperplasia) Consultations / Procedures Consultations: Switch Inspector Hospitalist Neurology PT/OT/Speech Therapy Procedures: Open umbilical hernia repair with mesh with small bowel resection Vaccinations: None Pending Studies / Follow-Up None Medication Reconciliation New Medications: Oxycodone/Acetaminophen 5MG/325MG (Percocet 5MG/325MG) Tab 1 TABLET PO Q4H PRN for Pain, #18 TAB Lisinopril (Lisinopril) 5 Mg Tab 5 MG PO QAM, #30 TAB 2 Refills Continued Medications: Aspirin (Aspirin EC Low Dose) 81 Mg Ectab 81 MG PO QAM for 30 Days Atorvastatin (Lipitor) 40 Mg Tab 40 MG PO HS, TAB Calcium-Magnesium W/ Vitamin D (Citracal Calcium+D Slow R) 1 Tab Tab 1 TAB PO DAILY Folic Acid (Folvite) 1 Mg Tab 1 MG PO 6XWK, TAB NONE ON SUNDAYS Methotrexate (Methotrexate) 2.5 Mg Tab 10 MG PO WK, TAB SUNDAY Metoprolol Tartrate (Lopressor) (Lopressor) 25 Mg Tab 25 MG PO BID, TAB Multiple Vitamins W/ Minerals (Centrum Silver) 1 Chw Chw 1 TAB PO DAILY Nitroglycerin (Nitrostat) 0.4 Mg Tab 0.4 MG UT UD PRN for Chest Pain Omeprazole (Prilosec) 20 Mg Capcr 20 MG PO DAILY, CAP Prednisone (Prednisone) 5 Mg Tab 5 MG PO DAILY, TAB Admission HPI Per the Admitting provider: This is an 82-year-old male who presented to the emergency room with a complaint of pain localized to the area of the umbilicus. He developed the pain acutely beginning about 5-1/2 hours ago. He noticed discoloration of the skin of the umbilicus as well. That was not there previously. He was unaware of her hernia in the umbilicus prior to developing the pain. He has not had associated nausea, vomiting, fever, chills, change in bowel habits with his last normal bowel movement having been yesterday morning. He has had no melena or hematochezia. He denies dysuria and hematuria although he has a history of BPH for which he was on Avodart. He has never had surgery in the umbilical region in the past. There is no generalized abdominal pain. Admission Exam Per the Admitting provider: General Appearance: WD/WN, no apparent distress Head: normocephalic Neck: supple, no adenopathy Respiratory/Chest: chest non-tender Cardiovascular: regular rate, rhythm Abdomen/GI: normal bowel sounds, soft, + pertinent finding (Discoloration of the skin of the umbilicus with a palpable hernia that cannot be reduced that is tender) Back: normal inspection Extremities/Musculoskelatal: + pedal edema (On the left), + pertinent finding (Status post amputation below the knee on the right) Skin: normal color Hospital Course (1) Incarcerated umbilical hernia Patient was taken to the operating room for open umbilical hernia repair with possible mesh. Patient was found to have incarcerated small bowel within the hernia. Small bowel was able to be reduced however was injured which required small bowel resection. Patient tolerated procedure well however at the end of the case patient was weak despite full reversal of anesthesia. He was transferred to the ICU still intubated. He was able to be extubated postoperatively in the ICU very quickly. Developed a left-sided weakness and lethargy postoperatively. A brain MRI was ordered which showed multiple areas of restricted diffusion within the right cerebral hemisphere involving the frontal and parietal lobes foci measuring up to 2.1 cm in greatest dimension with associated mildly increased signal compatible with areas of acute to subacute infarction.On postop day #1 patient's left arm and hand weakness slightly improved and stable. Neurology was consulted which believed infarct to be combined effect of high-grade carotid stenosis accompanied by hypoperfusion. Home aspirin of 81 mg daily was continued. Diet was advanced to clear liquids and patient tolerating. No return of bowel function. Patient was transferred out of the ICU to the medical/surgical floor. On postop day #2 patient's diet was continued on clear liquids as there was no return of bowel function yet. Enriquez catheter was continued. There is no change in the left- sided weakness. PT/OT/speech therapy was ordered for further management. Postop day #3 patient had some flatus however no bowel movement. Enriquez catheter was discontinued. Diet was continued on clear liquids. Patient was ambulating and working with PT. Neurology recommended vascular surgery consult and to continue antiplatelet therapy. Postop day #4 patient passing flatus however no bowel movements. Diet was advanced to full liquids and IV fluids were decreased. Patient did have some left-handed swelling. Postop day #5 patient tolerating full liquid diet and passing flatus. No bowel movement. Diet was advanced to regular diet. Vascular surgery consulted and recommended carotid endarterectomy on the right side in 4-6 weeks. PT OT continued. On postop day #6 patient tolerating regular diet and having flatus. Again still no bowel movement. No abdominal pain. Patient was discharged home with home PT. Patient is to have follow-up with our surgical office in 2 weeks, vascular surgery in 2 weeks, PCP in 1 week, and neurology follow-up as scheduled. (2) Left hemiparesis (3) Right-sided cerebrovascular accident (CVA) Discharge Instructions as given to patient Copies To Primary Care Provider: Lamar Modi M.D..
== END 2017-12-05 15:12 | disposition home health service (06) | DRG 329 ==
LOC: C.EDB 23:55 → C.MSICU 11-29 06:31 → ENRESERV 11-30 12:01 → C.MSN 11-30 14:42
PROVIDERS: ADMIT Surgery; ATTEND Surgery
PROC: 0WQF0ZZ Repair Abdominal Wall, Open Approach (ICD-10-PCS; principal; 2017-11-29 04:10)
PROC: 0DB80ZZ Excision of Small Intestine, Open Approach (ICD-10-PCS; principal; 2017-11-29 04:10)
DX: K42.0 Umbilical hernia with obstruction, without gangrene (principal); I63.233 Cerebral infarction due to unspecified occlusion or stenosis of bilateral carotid arteries; K55.011 Focal (segmental) acute (reversible) ischemia of small intestine; G81.94 Hemiplegia, unspecified affecting left nondominant side; R29.701 NIHSS score 1; I95.9 Hypotension, unspecified; R00.1 Bradycardia, unspecified; I25.10 Atherosclerotic heart disease of native coronary artery without angina pectoris; I13.10 Hypertensive heart and chronic kidney disease without heart failure, with stage 1 through stage 4 chronic kidney disease, or unspecified chronic kidney disease; N18.3 Chronic kidney disease, stage 3 (moderate); E78.5 Hyperlipidemia, unspecified; E78.00 Pure hypercholesterolemia, unspecified; M06.9 Rheumatoid arthritis, unspecified; Z51.81 Encounter for therapeutic drug level monitoring; Z79.899 Other long term (current) drug therapy; Z79.82 Long term (current) use of aspirin; Z79.52 Long term (current) use of systemic steroids; Z95.1 Presence of aortocoronary bypass graft; Z89.511 Acquired absence of right leg below knee; Z87.891 Personal history of nicotine dependence; Z91.041 Radiographic dye allergy status; Z88.2 Allergy status to sulfonamides; Z88.8 Allergy status to other drugs, medicaments and biological substances

== ENCOUNTER → 2017-11-28 | Outpatient (CLI) | payer OTHER, BC ==
[~2017-11-28] MED LIST changes: -FOLI1TAB7 PO; +FOLI1TAB8 PO; -HYDR-5688 PO; +LSN5 PO; +OXYC-57 PO
[2017-11-28 12:26] LABS: BASO % 0.3 %; BASO ABS # 0.03 K/uL (0-0.2); EOS % 2.6 %; EOS ABS # 0.24 K/uL (0-0.5); HEMATOCRIT 38.3 % (42-52); HEMOGLOBIN 12.4 g/dL (14.0-18.0); IG# 0.03 K/uL (0.00-0.02); LYMPH % 18.3 %; LYMPH ABS # 1.69 K/uL (1.2-3.4); MEAN CELL VOLUME 103.5 fL (80-100); MEAN CORPUSCULAR HEMOGLOBIN 33.5 pg (25-34); MEAN CORPUSCULAR HGB CONC 32.4 g/dl (32-36); MEAN PLATELET VOLUME 10.9 fL (7.4-10.4); MONO % 6.7 %; MONO ABS # 0.62 K/uL (0.11-0.59); NEUT % 71.8 %; NEUT ABS # 6.64 K/uL (1.4-6.5); PLATELET COUNT 249 K/uL (130-400); RED CELL DISTRIBUTION WIDTH CV 15.1 % (11.5-14.5); RED CELL DISTRIBUTION WIDTH SD 56.7 fL (36.4-46.3); WHITE BLOOD COUNT 9.25 K/uL (4.8-10.8)
[2017-11-28 12:57] LABS: ALBUMIN 3.5 gm/dl (3.4-5.0); ALT/SGPT 24 U/L (12-78); AST/SGOT 19 U/L (15-37); CREATININE 1.77 mg/dl (0.60-1.40)
[2017-11-28 12:59] LABS: ALKALINE PHOSPHATASE 55 U/L (45-117); TOTAL PROTEIN 6.4 gm/dl (6.4-8.2)
== END | disposition home or self-care (01) ==
LOC: C.LAB1850 10:53
PROVIDERS: ATTEND Internal Medicine Rheumatology
DX: M06.9 Rheumatoid arthritis, unspecified (principal); Z79.899 Other long term (current) drug therapy; N18.3 Chronic kidney disease, stage 3 (moderate)

== ENCOUNTER → 2017-12-12 | Outpatient (CLI) | payer OTHER, BC ==
[~2017-12-12] MED LIST changes: -ACET-1311 PO; +ASPEC81 PO; -ASPI-320 PO; +GADAVIST IV PRN; +LSN5 PO; +OXYC-57 PO
--- NOTE | 2017-12-12 10:57 | DIAGNOSTIC IMAGING REPORT ---
MR ANGIOGRAM OF THE NECK COMBO CLINICAL HISTORY: Carotid stenosis. Stroke. COMPARISON STUDY: Carotid artery ultrasound dated 11/30/2017. TECHNIQUE: Axial 3-D [id number] MR angiography of the neck is performed. Subsequently, following the IV administration of 5.5 cc of Gadavist. Coronal MR angiogram of the neck was performed to corroborate the findings. 3-D reformats are created and assessed. All measurements were calculated based on NASCET criteria. FINDINGS: Visualized portions of the thoracic aorta are normal in caliber. The aortic arch demonstrates standard 3-vessel anatomy. The subclavian arteries are widely patent bilaterally. There is atherosclerotic irregularity with less than 50% luminal narrowing seen throughout the mid to distal right common carotid artery. There is advanced atherosclerotic plaque in the right carotid bulb with approximately 70% luminal narrowing at the origin of the right internal carotid artery. The mid to distal right internal carotid artery are widely patent. High-grade stenosis is also suggested the origin of the right external carotid artery. The left common carotid artery is widely patent noting mild atherosclerotic irregularity. There is advanced atherosclerotic plaque in the left carotid bulb approximately 75% luminal narrowing at the origin of the left internal carotid artery. The mid to distal left internal carotid artery are widely patent. The left external carotid artery appears clear. The vertebral arteries are widely patent. The vertebral arteries are codominant. The visualized intracranial vessels at the skull base appear patent. IMPRESSION: 1. There is approximately 70% stenosis at the origin the right internal carotid artery. 2. There is approximately 75% stenosis at the origin of the left internal carotid artery. 3. The mid to distal portions of the right and left internal carotid arteries are patent. 4. High-grade stenosis is seen at the origin of the right external carotid artery. 5. The vertebral arteries are widely patent. Electronically signed by: Drayl Pathak M.D. 12/12/2017 10:55 AM Dictated Date/Time: 12/12/2017 10:44 AM
== END | disposition home or self-care (01) ==
LOC: C.MRI 09:23
PROVIDERS: ATTEND Physician Assistant
DX: I63.239 Cerebral infarction due to unspecified occlusion or stenosis of unspecified carotid artery (principal)

== ENCOUNTER 2017-12-29 16:33 | Inpatient (IN) | payer OTHER, BC ==
[~2017-12-29] VITALS: Ht 165.1 cm; Wt 52.6 kg
[~2017-12-29 16:33] MED LIST changes: -ASPEC81 PO; +ASPI-320 PO; -GADAVIST IV PRN
[2017-12-29] MEDS ORDERED: SODIUM CHLORIDE 0.9% 1000ML 1,000 ML IV STA (16:48)
[2017-12-29] MEDS ORDERED: ONDANSETRON INJ 2 MG/ML 2 ML VIAL IV STA ×2 (16:48→18:29)
[2017-12-29] MEDS ORDERED: FENTANYL CITRATE INJ 50 MCG/1 ML 2 ML VIAL IV STA ×3 (16:48→20:05)
[2017-12-29 17:15] LABS: BASO % 0.3 %; BASO ABS # 0.02 K/uL (0-0.2); EOS % 2.4 %; EOS ABS # 0.19 K/uL (0-0.5); HEMATOCRIT 37.5 % (42-52); HEMOGLOBIN 12.4 g/dL (14.0-18.0); IG# 0.02 K/uL (0.00-0.02); LYMPH % 15.9 %; LYMPH ABS # 1.26 K/uL (1.2-3.4); MEAN CELL VOLUME 100.5 fL (80-100); MEAN CORPUSCULAR HEMOGLOBIN 33.2 pg (25-34); MEAN CORPUSCULAR HGB CONC 33.1 g/dl (32-36); MEAN PLATELET VOLUME 11.1 fL (7.4-10.4); MONO ABS # 0.63 K/uL (0.11-0.59); NEUT % 73.1 %; NEUT ABS # 5.79 K/uL (1.4-6.5); PLATELET COUNT 231 K/uL (130-400); RED CELL DISTRIBUTION WIDTH CV 15.4 % (11.5-14.5); RED CELL DISTRIBUTION WIDTH SD 55.8 fL (36.4-46.3); WHITE BLOOD COUNT 7.91 K/uL (4.8-10.8)
[2017-12-29 17:43] LABS: ALT/SGPT 26 U/L (12-78); AST/SGOT 19 U/L (15-37); BLOOD UREA NITROGEN 32 mg/dl (7-18); CALCIUM 9.2 mg/dl (8.5-10.1); CARBON DIOXIDE 25 mmol/L (21-32); CREATININE 1.94 mg/dl (0.60-1.40); GLUCOSE 113 mg/dl (70-99); LIPASE 144 U/L (73-393); POTASSIUM 4.9 mmol/L (3.5-5.1); SODIUM 138 mmol/L (136-145)
[2017-12-29 17:48] LABS: ALKALINE PHOSPHATASE 70 U/L (45-117)
[2017-12-29] MEDS ORDERED: LEVAQUIN 750MG / 150ML D5W IV STA (18:27)
--- NOTE | 2017-12-29 20:09 | DIAGNOSTIC IMAGING REPORT ---
ABDOMEN AND PELVIS CT WITH ORAL CONTRAST CT DOSE: 272.76 mGy.cm HISTORY: Generalized abdominal pain. TECHNIQUE: Multiaxial CT images of the abdomen and pelvis were performed following the use of oral contrast. A dose lowering technique was utilized adhering to the principles of ALARA. COMPARISON STUDY: Abdomen and pelvis CT 11/29/2017. FINDINGS: A 6 mm left lower lobe nodule on image 8. A few bibasilar linear densities. No pneumoperitoneum. No pneumatosis. Posterior fusion hardware seen within the lumbar spine. There are are also poststernotomy changes. There is a small hiatus hernia and thickening of the distal esophagus. No evidence for an umbilical hernia. The unenhanced liver, spleen, and adrenal glands are unremarkable. Multiple bilateral renal hypodense lesions and bilateral renal calculi are again noted. No hydronephrosis. A 3.1 cm infrarenal abdominal aortic aneurysm. The unenhanced pancreas and gallbladder are unremarkable. No retroperitoneal lymphadenopathy. The prostate gland is enlarged. No change in the 1 cm hypodense focus within the left anterior prostate gland. Small amount of pelvic fluid. Colonic diverticulosis. The majority of the colon is decompressed. The proximal to mid small bowel loops are mildly distended and gas-filled measuring up to 3.4 cm. Evidence for small bowel anastomosis within the midabdomen. The distal small bowel loops are decompressed and concentrated within the lower pelvis. There is extensive surrounding mesenteric edema and fluid within the small bowel loops within the deep pelvis. There is also mild thickening and edema within the small bowel loops at the midabdomen. There is likely a transition point for the suspected small bowel obstruction immediately proximal to the small bowel anastomosis. This is best seen on image 199 within the midabdomen. IMPRESSION: 1. Small bowel obstruction to the level of the midabdomen where there is an area of focal narrowing immediately proximal to the small bowel anastomosis consistent with the transition point. . 2. Extensive mesenteric edema surrounding the mid to distal small bowel loops. There is also fluid surrounding the distal small bowel loops which are concentrated within the deep pelvis. Some of this could related to the recent postoperative change. However, these findings raise the possibility of vascular compromise/bowel ischemia. However, there is no pneumoperitoneum or pneumatosis at this time. Clinical correlation recommended. 3. A 6 mm left lower lobe nodule. 4. Additional findings as described above. Electronically signed by: Hari Sutton M.D. 12/29/2017 8:07 PM Dictated Date/Time: 12/29/2017 7:57 PM
--- NOTE | 2017-12-29 21:12 | History and Physical ---
History & Physical Date & Time of Service: Dec 29, 2017 at 21:12 Chief Complaint: Low/Mid Abd Pain,Vomiting -S/P Hernia Surgery Primary Care Physician: Lamar Modi M.D. History of Present Illness Source: patient, family Patient is an 82 yr male with PMH H/O CAD s/p CABG, CVA with residual LUE weakness, HTN, HLD, RA, BPH and other problems presents with history of abdominal pain nausea and vomiting which started this morning. Patient was treated 3 weeks ago for incarcerated umbilical hernia and partial small bowel resection by Dr. Cerna. Patient developed sudden onset of abdominal pain which is umbilical and region, 7/10 intensity, constant, sharp in quality, nonradiating, associated with multiple episodes of nausea and vomiting. Last bowel movement was this morning. Patient had no flatus since the bowel movement. CT abdomen is suggestive of SBO with transition point proximal to small bowel anastomosis. Lactate levels were elevated .Patient was evaluated by surgery in ED who suggestive conservative management. Denies any history of chest pain, SOB, dizziness, diaphoresis, fever, chills, blood in stools, diarrhea, dysuria. 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 Surgical Problems: (1) H/O umbilical hernia repair (2) History of lumbosacral spine surgery (3) Hx of CABG (4) S/P bilateral inguinal hernia repair Family History Heart disease Hypertension Not contributory Social History Smoking Status: Former Smoker Alcohol Use: none Drug Use: none Marital Status: Occupational Status: retired Immunizations History of Influenza Vaccine: Yes History of Tetanus Vaccine?: Yes Tetanus Immunization Date: Mar 17, 2013 History of Pneumococcal: Yes History of Hepatitis B Vaccine: No Allergies Coded Allergies: Iodinated Diagnostic Agents (Verified Allergy, Unknown, HIVES, 11/29/17) Sulfa Antibiotics (Verified Allergy, Unknown, HIVES, 11/29/17) Dutasteride (Unverified Adverse Reaction, Unknown, Skin lesions, 11/29/17) Home Medications Scheduled Aspirin (Aspirin EC Low Dose), 81 MG PO QAM Atorvastatin (Lipitor), 40 MG PO HS Calcium-Magnesium W/ Vitamin D (Citracal Calcium+D Slow R), 1 TAB PO DAILY Folic Acid (Folvite), 1 MG PO 6XWK Lisinopril (Lisinopril), 5 MG PO QAM Methotrexate (Methotrexate), 10 MG PO WK Metoprolol Tartrate (Lopressor) (Lopressor), 25 MG PO BID Multiple Vitamins W/ Minerals (Centrum Silver), 1 TAB PO DAILY Omeprazole (Prilosec), 20 MG PO DAILY Prednisone (Prednisone), 5 MG PO DAILY Scheduled PRN Nitroglycerin (Nitrostat), 0.4 MG UT UD PRN for Chest Pain Review of Systems See HPI for pertinent positives & negatives. A total of 10 systems reviewed and were otherwise negative. Physical Exam Vital Signs Date Time Temp Pulse Resp B/P (MAP) Pulse Ox O2 Delivery O2 Flow Rate FiO2 12/29/17 19:24 87 26 144/97 98 Room Air 12/29/17 16:37 36.4 90 17 140/91 98 Room Air General Appearance: no apparent distress, + thin Head: normocephalic, atraumatic Eyes: normal inspection, PERRL, EOMI, sclerae normal ENT: normal ENT inspection, hearing grossly normal Neck: supple, trachea midline Respiratory/Chest: chest non-tender, lungs clear, normal breath sounds, no respiratory distress, no accessory muscle use Cardiovascular: regular rate, rhythm, no edema, no murmur Abdomen/GI: normal bowel sounds, soft, + tenderness (Umbilical region) Back: normal inspection Extremities/Musculoskelatal: normal inspection, no pedal edema, + pertinent finding (Left BKA) 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, no motor/sensory deficits, alert, normal mood/affect, oriented x 3 Skin: normal color, warm/dry, + pertinent finding (Post CABG scar on chest) Diagnostics Laboratory Results Results Past 24 Hours Test 12/29/17 17:05 12/29/17 17:12 Range/Units White Blood Count 7.91 4.8-10.8 K/uL Red Blood Count 3.73 4.7-6.1 M/uL Hemoglobin 12.4 14.0-18.0 g/dL Hematocrit 37.5 42-52 % Mean Corpuscular Volume 100.5 80-100 fL Mean Corpuscular Hemoglobin 33.2 25-34 pg Mean Corpuscular Hemoglobin Concent 33.1 32-36 g/dl Platelet Count 231 130-400 K/uL Mean Platelet Volume 11.1 7.4-10.4 fL Neutrophils (%) (Auto) 73.1 % Lymphocytes (%) (Auto) 15.9 % Monocytes (%) (Auto) 8.0 % Eosinophils (%) (Auto) 2.4 % Basophils (%) (Auto) 0.3 % Neutrophils # (Auto) 5.79 1.4-6.5 K/uL Lymphocytes # (Auto) 1.26 1.2-3.4 K/uL Monocytes # (Auto) 0.63 0.11-0.59 K/uL Eosinophils # (Auto) 0.19 0-0.5 K/uL Basophils # (Auto) 0.02 0-0.2 K/uL RDW Standard Deviation 55.8 36.4-46.3 fL RDW Coefficient of Variation 15.4 11.5-14.5 % Immature Granulocyte % (Auto) 0.3 % Immature Granulocyte # (Auto) 0.02 0.00-0.02 K/uL Prothrombin Time 10.7 9.0-12.0 SECONDS Prothromb Time International Ratio 1.0 0.9-1.1 Sodium Level 138 136-145 mmol/L Potassium Level 4.9 3.5-5.1 mmol/L Chloride Level 105 98-107 mmol/L Carbon Dioxide Level 25 21-32 mmol/L Anion Gap 8.0 3-11 mmol/L Blood Urea Nitrogen 32 7-18 mg/dl Creatinine 1.94 0.60-1.40 mg/dl Est Creatinine Clear Calc Drug Dose 25.5 ml/min Estimated GFR () 36.8 Estimated GFR (Non- 31.8 BUN/Creatinine Ratio 16.5 10-20 Random Glucose 113 70-99 mg/dl Calcium Level 9.2 8.5-10.1 mg/dl Total Bilirubin 0.6 0.2-1 mg/dl Aspartate Amino Transf (AST/SGOT) 19 15-37 U/L Alanine Aminotransferase (ALT/SGPT) 26 12-78 U/L Alkaline Phosphatase 70 45-117 U/L Troponin I < 0.015 0-0.045 ng/ml Total Protein 7.0 6.4-8.2 gm/dl Albumin 4.0 3.4-5.0 gm/dl Globulin 3.0 2.5-4.0 gm/dl Albumin/Globulin Ratio 1.4 0.9-2 Lipase 144 73-393 U/L Bedside Lactic Acid Venous 3.31 0.90-1.70 mmol/L Diagnostic Radiology CT ABD: 1. Small bowel obstruction to the level of the midabdomen where there is an area of focal narrowing immediately proximal to the small bowel anastomosis consistent with the transition point. . 2. Extensive mesenteric edema surrounding the mid to distal small bowel loops. There is also fluid surrounding the distal small bowel loops which are concentrated within the deep pelvis. Some of this could related to the recent postoperative change. However, these findings raise the possibility of vascular compromise/bowel ischemia. However, there is no pneumoperitoneum or pneumatosis at this time. Clinical correlation recommended. 3. A 6 mm left lower lobe nodule. 4. Additional findings as described above. Impression Assessment and Plan SBO S/P Incarcerated umbilical hernia repair with partial small bowel resection 3 weeks ago Elevated lactate levels IV fluids, NG tube Pain control Appreciate Surgery Input Monitor lactate levels NPO for now SCDs for DVT Px HEATHER on CKD III Likely prerenal secondary to nausea, vomiting ? CKD Baseline Cr around mid 1s Monitor renal function Avoid Nephrotoxic agents Hold Lisinopril CAD S/P CABG Resume ASA, statin when able H/O CVA: Resume ASA, Statins when able HTN: Held Lisinopril secondary to HEATHER monitor HLD: On statins RA: On Methotrexate every Sunday On chronic prednisone 5 mg daily Utilize IV Hydrocortisone till obstruction resolves DVT Px: SCDs for now Start on SQ Heparin if OK with surgery Code Status: DNI/DNR as per my discussion with patient and family Resuscitation Status VTE Prophylaxis Will order VTE Prophylaxis: Yes
--- NOTE | 2017-12-29 21:27 | Surgery Consultation ---
Consultation Date of Consultation: Dec 29, 2017. Attending Physician: Reason for Consultation: Small bowel obstruction History of Present Illness Patient is a 82M with PMHx significant for CAD s/p CABG x 4 in 2016, CVA, HTN, HLD and RA. who presents to the ED tonight with abdominal pain, nausea and vomiting which began this morning. He is 3 weeks s/p incarcerated umbilical hernia repair w/ partial small bowel resection with Dr. Cerna. Reports he has been doing well since this procedure and has not had any problems until today. Reports his abdominal pain is generalized and has been getting worse throughout the day. Multiple episodes of vomiting, no hematemesis. Last BM this morning. Denies any flatus since then. Last ate this morning and threw up afterwards. Urinating without trouble. Denies fever/chills. Denies any other abdominal surgeries. Patient does take Aspirin 81mg PO QD. Denies use of other blood thinning or anticoagulant medications. POC Lactic acid 3.31. WBC WNL. CT shows findings significant for small bowel obstruction with transition point proximal to small bowel anastamosis, extensive mesenteric edema surrounding the mid to distal small bowel loops, fluid surround the distal small bowel loops. No pneumatosis or pneumoperitoneum. Past Medical/Surgical History Medical Problems: (1) Abscess Status: Acute (2) Cellulitis and abscess of leg Status: Acute (3) Incarcerated umbilical hernia Status: Acute (4) Small bowel obstruction Status: Acute Family History Heart disease Hypertension Social History Smoking Status: Former Smoker Drug Use: none Marital Status: Housing Status: lives with family Occupation Status: retired Allergies Coded Allergies: Iodinated Diagnostic Agents (Verified Allergy, Unknown, HIVES, 11/29/17) Sulfa Antibiotics (Verified Allergy, Unknown, HIVES, 11/29/17) Dutasteride (Unverified Adverse Reaction, Unknown, Skin lesions, 11/29/17) Home Medications Scheduled Aspirin (Aspirin EC Low Dose), 81 MG PO QAM Atorvastatin (Lipitor), 40 MG PO HS Calcium-Magnesium W/ Vitamin D (Citracal Calcium+D Slow R), 1 TAB PO DAILY Folic Acid (Folvite), 1 MG PO 6XWK Lisinopril (Lisinopril), 5 MG PO QAM Methotrexate (Methotrexate), 10 MG PO WK Metoprolol Tartrate (Lopressor) (Lopressor), 25 MG PO BID Multiple Vitamins W/ Minerals (Centrum Silver), 1 TAB PO DAILY Omeprazole (Prilosec), 20 MG PO DAILY Prednisone (Prednisone), 5 MG PO DAILY Scheduled PRN Nitroglycerin (Nitrostat), 0.4 MG UT UD PRN for Chest Pain Current Inpatient Medications Current Inpatient Medications Medications (Trade) Dose Ordered Sig/Yandel Route Start Time Stop Time Status Last Admin Dose Admin Sodium Chloride 1,000 ml @ 200 mls/hr Q5H STAT IV 12/29/17 16:48 12/29/17 21:47 12/29/17 17:14 200 MLS/HR Review of Systems Constitutional: No fever, No chills ENT: No sore throat Respiratory: No shortness of breath Cardiovascular: No chest pain Abdomen: + pain (generalized), + nausea, + vomiting, No diarrhea, No constipation Genitourinary - Male: No hematuria, No dysuria Integumentary: + new/changing skin lesions, + color change Physical Exam Date Time Temp Pulse Resp B/P (MAP) Pulse Ox O2 Delivery O2 Flow Rate FiO2 12/29/17 19:24 87 26 144/97 98 Room Air 12/29/17 16:37 36.4 90 17 140/91 98 Room Air General Appearance: WD/WN, no apparent distress Head: normocephalic, atraumatic ENT: hearing grossly normal Neck: trachea midline Respiratory/Chest: no respiratory distress, no accessory muscle use Abdomen/GI: soft, no organomegaly, no pulsatile mass, + tenderness ( generalized TTP), + distended (mild-mod) Neurologic/Psych: alert, normal mood/affect, oriented x 3 Skin: normal color, warm/dry Laboratory Results Last 24 Hours Test 12/29/17 17:05 12/29/17 17:12 White Blood Count 7.91 K/uL Red Blood Count 3.73 M/uL Hemoglobin 12.4 g/dL Hematocrit 37.5 % Mean Corpuscular Volume 100.5 fL Mean Corpuscular Hemoglobin 33.2 pg Mean Corpuscular Hemoglobin Concent 33.1 g/dl Platelet Count 231 K/uL Mean Platelet Volume 11.1 fL Neutrophils (%) (Auto) 73.1 % Lymphocytes (%) (Auto) 15.9 % Monocytes (%) (Auto) 8.0 % Eosinophils (%) (Auto) 2.4 % Basophils (%) (Auto) 0.3 % Neutrophils # (Auto) 5.79 K/uL Lymphocytes # (Auto) 1.26 K/uL Monocytes # (Auto) 0.63 K/uL Eosinophils # (Auto) 0.19 K/uL Basophils # (Auto) 0.02 K/uL RDW Standard Deviation 55.8 fL RDW Coefficient of Variation 15.4 % Immature Granulocyte % (Auto) 0.3 % Immature Granulocyte # (Auto) 0.02 K/uL Prothrombin Time 10.7 SECONDS Prothromb Time International Ratio 1.0 Sodium Level 138 mmol/L Potassium Level 4.9 mmol/L Chloride Level 105 mmol/L Carbon Dioxide Level 25 mmol/L Anion Gap 8.0 mmol/L Blood Urea Nitrogen 32 mg/dl Creatinine 1.94 mg/dl Est Creatinine Clear Calc Drug Dose 25.5 ml/min Estimated GFR () 36.8 Estimated GFR (Non- 31.8 BUN/Creatinine Ratio 16.5 Random Glucose 113 mg/dl Calcium Level 9.2 mg/dl Total Bilirubin 0.6 mg/dl Aspartate Amino Transf (AST/SGOT) 19 U/L Alanine Aminotransferase (ALT/SGPT) 26 U/L Alkaline Phosphatase 70 U/L Troponin I < 0.015 ng/ml Total Protein 7.0 gm/dl Albumin 4.0 gm/dl Globulin 3.0 gm/dl Albumin/Globulin Ratio 1.4 Lipase 144 U/L Bedside Lactic Acid Venous 3.31 mmol/L Assessment & Plan small bowel obstruction s/p incarcerated umbilical hernia repair with partial small bowel resection Despite elevated lactic acid, abdomen appears non-surgical on exam and CT shows no evidence of perforation. Mesenteric edema and fluid could likely correlate with recent surgery. Will opt for conservative management at this time. Admit per hospitalist team. NPO, NGT to LIWS, IV fluids, IV pain medication PRN, IV Zofran PRN, SCDs. Findings discussed with Dr. Styles. Please contact with questions or concerns.
--- NOTE | 2017-12-29 21:56 | EMERGENCY ROOM VISIT NOTE ---
History Report prepared by Prachi: Caitlin Fuller Under the Supervision of: Dr. Kimi Talbert D.O. First contact with patient: 16:41 Chief Complaint: ABDOMINAL PAIN Stated Complaint: LOW/MID ABD PAIN,VOMITING -S/P HERNIA SURGERY History of Present Illness The patient is an 82 year old male who presents to the Emergency Room with complaints of persistent abdominal pain starting this morning. The patient had hernia surgery 3 weeks ago. He also had a portion of his intestine removed. He was feeling well since the surgery. He had stopped taking the pain medications 1 week ago. He started having abdominal pain this morning. He has been passing less gas since the pain started. He feels like he needs to pass gas. This morning he had a good bowel movement before the pain started. He has not had any blood in his stool. He vomited one time today. He continues to feel nauseous. He is feeling somewhat bloated. He denies any chills, fever, SOB, chest pain, dizziness, or lightheadedness. This was his first abdominal surgery. He has a history of prostate problems and normally has some urinary hesitancy. Source of History: patient Onset: this morning Position: abdomen Quality: other (pain) Timing: other (persistent) Associated Symptoms: + nausea, + vomiting, No fevers, No chills, No chest pain, No SOB, No hematochezia Review of Systems See HPI for pertinent positives & negatives. A total of 10 systems reviewed and were otherwise negative. 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 Surgical Problems: (1) History of lumbosacral spine surgery (2) Hx of CABG (3) S/P bilateral inguinal hernia repair Family History Heart disease Hypertension Social History Smoking Status: Former Smoker Alcohol Use: occasionally Drug Use: none Marital Status: Housing Status: lives with family Occupation Status: retired Current/Historical Medications Scheduled Aspirin (Aspirin EC Low Dose), 81 MG PO QAM Atorvastatin (Lipitor), 40 MG PO HS Calcium-Magnesium W/ Vitamin D (Citracal Calcium+D Slow R), 1 TAB PO DAILY Folic Acid (Folvite), 1 MG PO 6XWK Lisinopril (Lisinopril), 5 MG PO QAM Methotrexate (Methotrexate), 10 MG PO WK Metoprolol Tartrate (Lopressor) (Lopressor), 25 MG PO BID Multiple Vitamins W/ Minerals (Centrum Silver), 1 TAB PO DAILY Omeprazole (Prilosec), 20 MG PO DAILY Prednisone (Prednisone), 5 MG PO DAILY Scheduled PRN Nitroglycerin (Nitrostat), 0.4 MG UT UD PRN for Chest Pain Allergies Coded Allergies: Iodinated Diagnostic Agents (Verified Allergy, Unknown, HIVES, 11/29/17) Sulfa Antibiotics (Verified Allergy, Unknown, HIVES, 11/29/17) Dutasteride (Unverified Adverse Reaction, Unknown, Skin lesions, 11/29/17) Physical Exam Vital Signs Date Time Temp Pulse Resp B/P (MAP) Pulse Ox O2 Delivery O2 Flow Rate FiO2 12/29/17 19:24 87 26 144/97 98 Room Air 12/29/17 16:37 36.4 90 17 140/91 98 Room Air Physical Exam GENERAL: alert, well appearing, well nourished, no distress, non-toxic EYE EXAM: normal conjunctiva, PERRL and EOM's grossly intact OROPHARYNX: no exudate, no erythema, lips, buccal mucosa, and tongue normal and mucous membranes are moist NECK: supple, no nuchal rigidity, no adenopathy, non-tender LUNGS: Clear to auscultation. Normal chest wall mechanics HEART: no murmurs, S1 normal and S2 normal ABDOMEN: abdomen soft, horizontal incision just superior to umbilicus, no surrounding erythema, minimal tenderness at incision site, dull to percussion, normo-active bowel sounds, no masses, no rebound or guarding. BACK: Back is symmetrical on inspection and there is no deformity, no midline tenderness, no CVA tenderness. SKIN: no rashes and no bruising UPPER EXTREMITIES: upper extremities are grossly normal. LOWER EXTREMITIES: No pitting edema. Right AKA with prosthetic. NEURO EXAM: Normal sensorium, cranial nerves II-XII grossly intact, normal speech, no gross weakness of arms, no gross weakness of legs. Medical Decision & Procedures ER Provider Diagnostic Interpretation: Radiology results have been interpreted by the radiologist and reviewed by me. ABDOMEN AND PELVIS CT WITH ORAL CONTRAST CT DOSE: 272.76 mGy.cm HISTORY: Generalized abdominal pain. TECHNIQUE: Multiaxial CT images of the abdomen and pelvis were performed following the use of oral contrast. A dose lowering technique was utilized adhering to the principles of ALARA. COMPARISON STUDY: Abdomen and pelvis CT 11/29/2017. FINDINGS: A 6 mm left lower lobe nodule on image 8. A few bibasilar linear densities. No pneumoperitoneum. No pneumatosis. Posterior fusion hardware seen within the lumbar spine. There are are also poststernotomy changes. There is a small hiatus hernia and thickening of the distal esophagus. No evidence for an umbilical hernia. The unenhanced liver, spleen, and adrenal glands are unremarkable. Multiple bilateral renal hypodense lesions and bilateral renal calculi are again noted. No hydronephrosis. A 3.1 cm infrarenal abdominal aortic aneurysm. The unenhanced pancreas and gallbladder are unremarkable. No retroperitoneal lymphadenopathy. The prostate gland is enlarged. No change in the 1 cm hypodense focus within the left anterior prostate gland. Small amount of pelvic fluid. Colonic diverticulosis. The majority of the colon is decompressed. The proximal to mid small bowel loops are mildly distended and gas-filled measuring up to 3.4 cm. Evidence for small bowel anastomosis within the midabdomen. The distal small bowel loops are decompressed and concentrated within the lower pelvis. There is extensive surrounding mesenteric edema and fluid within the small bowel loops within the deep pelvis. There is also mild thickening and edema within the small bowel loops at the midabdomen. There is likely a transition point for the suspected small bowel obstruction immediately proximal to the small bowel anastomosis. This is best seen on image 199 within the midabdomen. IMPRESSION: 1. Small bowel obstruction to the level of the midabdomen where there is an area of focal narrowing immediately proximal to the small bowel anastomosis consistent with the transition point. . 2. Extensive mesenteric edema surrounding the mid to distal small bowel loops. There is also fluid surrounding the distal small bowel loops which are concentrated within the deep pelvis. Some of this could related to the recent postoperative change. However, these findings raise the possibility of vascular compromise/bowel ischemia. However, there is no pneumoperitoneum or pneumatosis at this time. Clinical correlation recommended. 3. A 6 mm left lower lobe nodule. 4. Additional findings as described above. Electronically signed by: Hari Sutton M.D. 12/29/2017 8:07 PM Dictated Date/Time: 12/29/2017 7:57 PM Laboratory Results Test 12/29/17 17:05 Immature Granulocyte % (Auto) 0.3 % White Blood Count 7.91 K/uL (4.8-10.8) Red Blood Count 3.73 M/uL (4.7-6.1) Hemoglobin 12.4 g/dL (14.0-18.0) Hematocrit 37.5 % (42-52) Mean Corpuscular Volume 100.5 fL (80-100) Mean Corpuscular Hemoglobin 33.2 pg (25-34) Mean Corpuscular Hemoglobin Concent 33.1 g/dl (32-36) Platelet Count 231 K/uL (130-400) Mean Platelet Volume 11.1 fL (7.4-10.4) Neutrophils (%) (Auto) 73.1 % Lymphocytes (%) (Auto) 15.9 % Monocytes (%) (Auto) 8.0 % Eosinophils (%) (Auto) 2.4 % Basophils (%) (Auto) 0.3 % Neutrophils # (Auto) 5.79 K/uL (1.4-6.5) Lymphocytes # (Auto) 1.26 K/uL (1.2-3.4) Monocytes # (Auto) 0.63 K/uL (0.11-0.59) Eosinophils # (Auto) 0.19 K/uL (0-0.5) Basophils # (Auto) 0.02 K/uL (0-0.2) Immature Granulocyte # (Auto) 0.02 K/uL (0.00-0.02) Prothrombin Time 10.7 SECONDS (9.0-12.0) Prothromb Time International Ratio 1.0 (0.9-1.1) Total Bilirubin 0.6 mg/dl (0.2-1) Aspartate Amino Transf (AST/SGOT) 19 U/L (15-37) Alanine Aminotransferase (ALT/SGPT) 26 U/L (12-78) Alkaline Phosphatase 70 U/L (45-117) Troponin I < 0.015 ng/ml (0-0.045) Total Protein 7.0 gm/dl (6.4-8.2) Albumin 4.0 gm/dl (3.4-5.0) Globulin 3.0 gm/dl (2.5-4.0) Albumin/Globulin Ratio 1.4 (0.9-2) Lipase 144 U/L (73-393) Laboratory results per my review. Medications Administered Medications (Trade) Dose Ordered Sig/Yandel Route Start Time Stop Time Status Last Admin Dose Admin Sodium Chloride 1,000 ml @ 200 mls/hr Q5H STAT IV 12/29/17 16:48 12/29/17 21:47 DC 12/29/17 17:14 200 MLS/HR Ondansetron HCl (Zofran Inj) 4 mg NOW STAT IV 12/29/17 16:48 12/29/17 16:51 DC 12/29/17 17:14 4 MG Fentanyl Citrate (Fentanyl Inj) 50 mcg NOW STAT IV 12/29/17 16:48 12/29/17 16:51 DC 12/29/17 17:14 50 MCG Levofloxacin (Levaquin / D5W) 750 mg NOW STAT IV 12/29/17 18:27 12/29/17 18:29 DC 12/29/17 18:32 750 MG Ondansetron HCl (Zofran Inj) 4 mg NOW STAT IV 12/29/17 18:29 12/29/17 18:30 DC 12/29/17 18:32 4 MG Fentanyl Citrate (Fentanyl Inj) 50 mcg NOW STAT IV 12/29/17 19:11 12/29/17 19:12 DC 12/29/17 19:23 50 MCG Fentanyl Citrate (Fentanyl Inj) 50 mcg NOW STAT IV 12/29/17 20:05 12/29/17 20:06 DC 12/29/17 20:14 50 MCG ED Course 1642: The patient was evaluated in room C2B. A complete history and physical exam was performed. 1647: Fentanyl Inj 50 mcg IV, Zofran Inj 4 mg IV, Sodium Chloride 1000 ml @ 200 mls/hr IV. 1826: Levofloxacin 750 mg IV. 1828: Zofran Inj 4 mg IV. 1910: Fentanyl Inj 50 mcg IV. 1918: I reevaluated the patient. He is having more pain again. He is getting more medications now. 2005: Fentanyl Inj 50 mcg IV. 2016: I discussed the patient's case with Terence Tapia PA-C [facility] [place] general surgery. They will evaluate the patient. 2017: I reevaluated the patient. I updated them on the results. 2054: Surgery has evaluated the patient. After discussion with the attending, Dr. Styles, they advise admission to medicine and NG tube placement. They will follow in consult. 2106: I reviewed the patient's case with Dr. Montiel, [facility] hospitalist. He will evaluate the patient for further management. 2109: Upon reevaluation, the patient is stable. I discussed the findings and the treatment plan with the patient and family. They express agreement and understanding. He will be evaluated for further management. Medical Decision Differential diagnoses includes but is not limited to gastritis, peptic ulcer disease, GERD, gallbladder disease, pancreatitis, small bowel obstruction, acute coronary syndrome, pericarditis, ischemic bowel, irritable bowel disease, irritable bowel syndrome, appendicitis, diverticulitis, malignancy, hernia, urinary tract infection, torsion, perforation, trauma, infectious. Patient initially only with mild discomfort and a nonsurgical abdomen on initial exam, however patient's exam continued to get worse and patient required multiple repeat doses of IV pain medication and IV Zofran in addition to his IV fluids. Patient stated his pain continued to get worse despite pain medication. There seem to be some delay in obtaining the CT results, however once the results were available, I immediately called for a surgical consult and asked him to come examine the patient at bedside. Although his abdomen was slightly more firm compared to my first exam, he still did not have an acute surgical abdomen, however given elevated lactate, worsening clinical condition, and findings of mesenteric edema possibly suggestive of early ischemia on CT, I asked that surgery see him immediately. Patient found to have slightly worse creatinine compared to his prior baseline of mild renal insufficiency, and patient was given IV fluids here. Following discussion with surgical PA, an NG tube was placed. I did discuss the case then with the hospitalist for additional evaluation and treatment of surgery recommended medicine to admit and they will see in consult. A repeat lactic acid was ordered as a precaution given questionable mesenteric edema and early ischemia despite no pneumoperitoneum or pneumatosis intestinalis. Patient and family aware of all results and were agreeable with plan. Medication Reconcilliation Current Medication List: was personally reviewed by me Blood Pressure Screening Patient's blood pressure: Elevated blood pressure Blood pressure disposition: Elevated BP felt to be situational Consults Time Called: 2011 [facility]ing [facility] Returned Call: 2015 I discussed the patient's case with him. They will evaluate the patient. Additional Consults: Time Called: 2058 Consulted Physician: Dr. Montiel [facility] hospitalist Returned Call: 2106 Additional Comments: I reviewed the patient's case with him. He will evaluate the patient for further management. Impression Primary Impression: Small bowel obstruction Additional Impressions: Abdominal pain Vomiting Mesenteric edema Scribe Attestation The scribe's documentation has been prepared under my direction and personally reviewed by me in its entirety. I confirm that the note above accurately reflects all work, treatment, procedures, and medical decision making performed by me. Departure Information Dispostion Being Evaluated By Hospitalist Referrals No Doctor, Assigned (PCP) Patient Instructions [facility] Problem Qualifiers Additional Impressions: Abdominal pain Abdominal location: periumbilical Qualified Codes: R10.33 - Periumbilical pain Vomiting Vomiting type: unspecified Vomiting Intractability: non-intractable Nausea presence: with nausea Qualified Codes: R11.2 - Nausea with vomiting, unspecified
[2017-12-29] MEDS ORDERED: MoRPHine SULFATE 2 MG/ML CARP IV PRN (22:00)
[2017-12-29] MEDS ORDERED: ONDANSETRON INJ 2 MG/ML 2 ML VIAL IV PRN (22:00)
[2017-12-29] MEDS ORDERED: ACETAMINOPHEN 325 MG TAB PO PRN (22:00)
[2017-12-29] MEDS: SODIUM CHLORIDE 0.9% 1000ML 1,000 ML IV SCH (23:19)
[2017-12-29 23:28] VITALS: BP 142/74; PULSE 85; TEMP 36.6; O2SAT 99; BMI 19.3
[2017-12-29 23:50] VITALS: O2SAT 99
[2017-12-30] MEDS ORDERED: ACETAMINOPHEN IV 650 MG in EMPTY BAG 0 ML IV PRN (01:45)
[2017-12-30] MEDS: MoRPHine SULFATE 2 MG/ML CARP IV PRN ×4 (02:33→16:14)
[2017-12-30 05:28] LABS: HEMATOCRIT 37.4 % (42-52); HEMOGLOBIN 12.4 g/dL (14.0-18.0); MEAN CELL VOLUME 100.8 fL (80-100); MEAN CORPUSCULAR HEMOGLOBIN 33.4 pg (25-34); MEAN CORPUSCULAR HGB CONC 33.2 g/dl (32-36); MEAN PLATELET VOLUME 10.6 fL (7.4-10.4); PLATELET COUNT 200 K/uL (130-400); RED CELL DISTRIBUTION WIDTH CV 15.5 % (11.5-14.5); RED CELL DISTRIBUTION WIDTH SD 56.5 fL (36.4-46.3); WHITE BLOOD COUNT 9.96 K/uL (4.8-10.8)
[2017-12-30 05:50] LABS: CALCIUM 8.5 mg/dl (8.5-10.1); CREATININE 2.07 mg/dl (0.60-1.40); POTASSIUM 5.2 mmol/L (3.5-5.1)
[2017-12-30] MEDS ORDERED: METOPROLOL TARTRATE 1 MG/ML VIAL IV. SCH (06:00)
[2017-12-30] MEDS ORDERED: HEPARIN SOD 5000 UNIT/0.5 ML CARP SQ SCH (06:00)
[2017-12-30 07:34] VITALS: BP 116/72; PULSE 91; TEMP 36.8; O2SAT 94
--- NOTE | 2017-12-30 08:58 | Surgery Progress Note ---
Surgery Progress Note Date of Service Dec 30, 2017. Subjective No flatus, No nausea Objective Vital Signs: Date Time Temp Pulse Resp B/P (MAP) Pulse Ox O2 Delivery O2 Flow Rate FiO2 12/30/17 07:34 36.8 91 18 116/72 (87) 94 Room Air 12/29/17 23:50 99 Room Air 12/29/17 23:28 36.6 85 20 142/74 99 Room Air 12/29/17 22:16 87 26 144/97 98 12/29/17 19:24 87 26 144/97 98 Room Air 12/29/17 16:37 36.4 90 17 140/91 98 Room Air General Appearance: WD/WN, no apparent distress Abdomen: + distended, + tenderness Laboratory Results: Results Past 24 Hours Test 12/29/17 17:05 12/29/17 17:12 12/29/17 22:14 12/29/17 23:38 Range/Units White Blood Count 7.91 4.8-10.8 K/uL Red Blood Count 3.73 4.7-6.1 M/uL Hemoglobin 12.4 14.0-18.0 g/dL Hematocrit 37.5 42-52 % Mean Corpuscular Volume 100.5 80-100 fL Mean Corpuscular Hemoglobin 33.2 25-34 pg Mean Corpuscular Hemoglobin Concent 33.1 32-36 g/dl Platelet Count 231 130-400 K/uL Mean Platelet Volume 11.1 7.4-10.4 fL Neutrophils (%) (Auto) 73.1 % Lymphocytes (%) (Auto) 15.9 % Monocytes (%) (Auto) 8.0 % Eosinophils (%) (Auto) 2.4 % Basophils (%) (Auto) 0.3 % Neutrophils # (Auto) 5.79 1.4-6.5 K/uL Lymphocytes # (Auto) 1.26 1.2-3.4 K/uL Monocytes # (Auto) 0.63 0.11-0.59 K/uL Eosinophils # (Auto) 0.19 0-0.5 K/uL Basophils # (Auto) 0.02 0-0.2 K/uL RDW Standard Deviation 55.8 36.4-46.3 fL RDW Coefficient of Variation 15.4 11.5-14.5 % Immature Granulocyte % (Auto) 0.3 % Immature Granulocyte # (Auto) 0.02 0.00-0.02 K/uL Prothrombin Time 10.7 9.0-12.0 SECONDS Prothromb Time International Ratio 1.0 0.9-1.1 Sodium Level 138 136-145 mmol/L Potassium Level 4.9 3.5-5.1 mmol/L Chloride Level 105 98-107 mmol/L Carbon Dioxide Level 25 21-32 mmol/L Anion Gap 8.0 3-11 mmol/L Blood Urea Nitrogen 32 7-18 mg/dl Creatinine 1.94 0.60-1.40 mg/dl Est Creatinine Clear Calc Drug Dose 25.5 ml/min Estimated GFR () 36.8 Estimated GFR (Non- 31.8 BUN/Creatinine Ratio 16.5 10-20 Random Glucose 113 70-99 mg/dl Calcium Level 9.2 8.5-10.1 mg/dl Total Bilirubin 0.6 0.2-1 mg/dl Aspartate Amino Transf (AST/SGOT) 19 15-37 U/L Alanine Aminotransferase (ALT/SGPT) 26 12-78 U/L Alkaline Phosphatase 70 45-117 U/L Troponin I < 0.015 0-0.045 ng/ml Total Protein 7.0 6.4-8.2 gm/dl Albumin 4.0 3.4-5.0 gm/dl Globulin 3.0 2.5-4.0 gm/dl Albumin/Globulin Ratio 1.4 0.9-2 Lipase 144 73-393 U/L Bedside Lactic Acid Venous 3.31 2.42 0.90-1.70 mmol/L Lactic Acid Level 2.9 0.4-2.0 mmol/L Test 12/30/17 00:38 12/30/17 05:18 Range/Units Urine Color DK YELLOW Urine Appearance CLEAR CLEAR Urine pH 8.5 4.5-7.5 Urine Specific Odell 1.020 1.000-1.030 Urine Protein NEG NEG Urine Glucose (UA) NEG NEG Urine Ketones TRACE NEG Urine Occult Blood NEG NEG Urine Nitrite NEG NEG Urine Bilirubin NEG NEG Urine Urobilinogen NEG NEG Urine Leukocyte Esterase NEG NEG Urine WBC (Auto) 1-5 0-5 /hpf Urine RBC (Auto) 0-4 0-4 /hpf Urine Hyaline Casts (Auto) 1-5 0-5 /lpf Urine Epithelial Cells (Auto) 20-30 0-5 /lpf Urine Bacteria (Auto) NEG NEG White Blood Count 9.96 4.8-10.8 K/uL Red Blood Count 3.71 4.7-6.1 M/uL Hemoglobin 12.4 14.0-18.0 g/dL Hematocrit 37.4 42-52 % Mean Corpuscular Volume 100.8 80-100 fL Mean Corpuscular Hemoglobin 33.4 25-34 pg Mean Corpuscular Hemoglobin Concent 33.2 32-36 g/dl RDW Standard Deviation 56.5 36.4-46.3 fL RDW Coefficient of Variation 15.5 11.5-14.5 % Platelet Count 200 130-400 K/uL Mean Platelet Volume 10.6 7.4-10.4 fL Sodium Level 138 136-145 mmol/L Potassium Level 5.2 3.5-5.1 mmol/L Chloride Level 109 98-107 mmol/L Carbon Dioxide Level 23 21-32 mmol/L Anion Gap 6.0 3-11 mmol/L Blood Urea Nitrogen 35 7-18 mg/dl Creatinine 2.07 0.60-1.40 mg/dl Est Creatinine Clear Calc Drug Dose 21.2 ml/min Estimated GFR () 34.0 Estimated GFR (Non- 29.4 BUN/Creatinine Ratio 17.0 10-20 Random Glucose 125 70-99 mg/dl Lactic Acid Level 1.9 0.4-2.0 mmol/L Calcium Level 8.5 8.5-10.1 mg/dl Magnesium Level 2.1 1.8-2.4 mg/dl Assessment & Plan 12/30/17 82-year-old male 3 weeks s/p incarcerated umbilical hernia repair with partial SBO Patient seen and examined with Dr. Styles. Reported that he had been doing well since surgery with Dr. Cerna until about 2 days ago when he developed abdominal pain. Yesterday he had several episodes of nausea and vomiting. AM labs reviewed. NG tube in place- 180cc. Patient reports that abdominal pain is slowly improving. Denies nausea. Will continue conservative management- no surgical intervention required at this time. General surgery will continue to follow. 12/29/17 small bowel obstruction s/p incarcerated umbilical hernia repair with partial small bowel resection Despite elevated lactic acid, abdomen appears non-surgical on exam and CT shows no evidence of perforation. Mesenteric edema and fluid could likely correlate with recent surgery. Will opt for conservative management at this time. Admit per hospitalist team. NPO, NGT to LIWS, IV fluids, IV pain medication PRN, IV Zofran PRN, SCDs. Findings discussed with Dr. Styles. Please contact with questions or concerns.
[2017-12-30] MEDS ORDERED: METOPROLOL TARTRATE 25 MG TAB PO SCH (09:00)
[2017-12-30] MEDS ORDERED: ASPIRIN 81 MG ECTAB PO SCH (09:00)
[2017-12-30] MEDS ORDERED: PANTOprazole SOD 40 MG TAB PO SCH (09:00)
[2017-12-30] MEDS: SODIUM CHLORIDE 0.9% 1000ML 1,000 ML IV SCH ×2 (09:19→18:21)
[2017-12-30] MEDS: HYDROCORTISONE IV 20 MG in SYRINGE 0 ML IV SCH (09:20)
--- NOTE | 2017-12-30 11:03 | Progress Note ---
Subjective Date of Service: Dec 30, 2017. Subjective Pt evaluation today including: conversation w/ patient, physical exam, lab review, review of studies, review of inpatient medication list Saw/examined the patient in room 360 He has an NG tube with intermittent suctioning in no overt distress states his pain and nausea have improved no flatus or BM Problem List Medical Problems: (1) Abscess Status: Acute (2) Cellulitis and abscess of leg Status: Acute (3) Incarcerated umbilical hernia Status: Acute (4) Small bowel obstruction Status: Acute (5) Small bowel obstruction Status: Acute (6) Vomiting Status: Acute Review of Systems Constitutional: No fever, No chills Respiratory: No shortness of breath Cardiac: No chest pain Abdomen: + pain, + nausea, + vomiting (improved), No diarrhea, No constipation , No GI bleeding Heme: No abnormal bleeding/bruising Medications Current Inpatient Medications Medications (Trade) Dose Ordered Sig/Yandel Route Start Time Stop Time Status Last Admin Dose Admin Ondansetron HCl (Zofran Inj) 4 mg Q6H PRN IV 12/29/17 22:00 01/28/18 21:59 Sodium Chloride 1,000 ml @ 100 mls/hr Q10H IV 12/29/17 23:59 01/28/18 23:58 12/30/17 09:19 100 MLS/HR Aspirin (Ecotrin Tab) 81 mg QAM PO 12/30/17 09:00 01/29/18 08:59 Future Hold Morphine Sulfate (MoRPHine SULFATE INJ) 2 mg Q2H PRN IV 12/30/17 01:45 01/12/18 21:59 12/30/17 09:23 2 MG Pantoprazole Sodium 40 mg/ Syringe 10 ml @ 5 mls/min DAILY@11 IV 12/30/17 11:00 01/29/18 10:59 Metoprolol Tartrate (Lopressor Iv) 2.5 mg Q6 IV. 12/30/17 06:00 01/29/18 05:59 Future Hold Acetaminophen 650 mg/Empty Bag 65 ml @ 260 mls/hr Q6H PRN IV 12/30/17 01:45 01/29/18 01:44 Hydrocortisone Sodium Succinate 20 mg/Syringe 0.4 ml @ 1.6 mls/min QAM IV 12/30/17 09:00 01/29/18 08:59 12/30/17 09:20 1.6 MLS/MIN Objective Vital Signs Date Time Temp Pulse Resp B/P (MAP) Pulse Ox O2 Delivery O2 Flow Rate FiO2 12/30/17 07:34 36.8 91 18 116/72 (87) 94 Room Air 12/29/17 23:50 99 Room Air 12/29/17 23:28 36.6 85 20 142/74 99 Room Air 12/29/17 22:16 87 26 144/97 98 12/29/17 19:24 87 26 144/97 98 Room Air 12/29/17 16:37 36.4 90 17 140/91 98 Room Air Physical Exam General Appearance: no apparent distress Respiratory/Chest: lungs clear, normal breath sounds, no respiratory distress, no accessory muscle use Cardiovascular: regular rate, rhythm, no edema, no murmur Abdomen: soft, + abnormal bowel sounds (decreased BS in the lower quadrants), + tenderness Neurologic/Psychiatric: no motor/sensory deficits, alert, normal mood/affect Laboratory Results Last 24 Hours Test 12/29/17 17:05 12/29/17 17:12 12/29/17 22:14 12/29/17 23:38 White Blood Count 7.91 K/uL Red Blood Count 3.73 M/uL Hemoglobin 12.4 g/dL Hematocrit 37.5 % Mean Corpuscular Volume 100.5 fL Mean Corpuscular Hemoglobin 33.2 pg Mean Corpuscular Hemoglobin Concent 33.1 g/dl Platelet Count 231 K/uL Mean Platelet Volume 11.1 fL Neutrophils (%) (Auto) 73.1 % Lymphocytes (%) (Auto) 15.9 % Monocytes (%) (Auto) 8.0 % Eosinophils (%) (Auto) 2.4 % Basophils (%) (Auto) 0.3 % Neutrophils # (Auto) 5.79 K/uL Lymphocytes # (Auto) 1.26 K/uL Monocytes # (Auto) 0.63 K/uL Eosinophils # (Auto) 0.19 K/uL Basophils # (Auto) 0.02 K/uL RDW Standard Deviation 55.8 fL RDW Coefficient of Variation 15.4 % Immature Granulocyte % (Auto) 0.3 % Immature Granulocyte # (Auto) 0.02 K/uL Prothrombin Time 10.7 SECONDS Prothromb Time International Ratio 1.0 Sodium Level 138 mmol/L Potassium Level 4.9 mmol/L Chloride Level 105 mmol/L Carbon Dioxide Level 25 mmol/L Anion Gap 8.0 mmol/L Blood Urea Nitrogen 32 mg/dl Creatinine 1.94 mg/dl Est Creatinine Clear Calc Drug Dose 25.5 ml/min Estimated GFR () 36.8 Estimated GFR (Non- 31.8 BUN/Creatinine Ratio 16.5 Random Glucose 113 mg/dl Calcium Level 9.2 mg/dl Total Bilirubin 0.6 mg/dl Aspartate Amino Transf (AST/SGOT) 19 U/L Alanine Aminotransferase (ALT/SGPT) 26 U/L Alkaline Phosphatase 70 U/L Troponin I < 0.015 ng/ml Total Protein 7.0 gm/dl Albumin 4.0 gm/dl Globulin 3.0 gm/dl Albumin/Globulin Ratio 1.4 Lipase 144 U/L Bedside Lactic Acid Venous 3.31 mmol/L 2.42 mmol/L Lactic Acid Level 2.9 mmol/L Test 12/30/17 00:38 12/30/17 05:18 Urine Color DK YELLOW Urine Appearance CLEAR Urine pH 8.5 Urine Specific [place] 1.020 Urine Protein NEG Urine Glucose (UA) NEG Urine Ketones TRACE Urine Occult Blood NEG Urine Nitrite NEG Urine Bilirubin NEG Urine Urobilinogen NEG Urine Leukocyte Esterase NEG Urine WBC (Auto) 1-5 /hpf Urine RBC (Auto) 0-4 /hpf Urine Hyaline Casts (Auto) 1-5 /lpf Urine Epithelial Cells (Auto) 20-30 /lpf Urine Bacteria (Auto) NEG White Blood Count 9.96 K/uL Red Blood Count 3.71 M/uL Hemoglobin 12.4 g/dL Hematocrit 37.4 % Mean Corpuscular Volume 100.8 fL Mean Corpuscular Hemoglobin 33.4 pg Mean Corpuscular Hemoglobin Concent 33.2 g/dl RDW Standard Deviation 56.5 fL RDW Coefficient of Variation 15.5 % Platelet Count 200 K/uL Mean Platelet Volume 10.6 fL Sodium Level 138 mmol/L Potassium Level 5.2 mmol/L Chloride Level 109 mmol/L Carbon Dioxide Level 23 mmol/L Anion Gap 6.0 mmol/L Blood Urea Nitrogen 35 mg/dl Creatinine 2.07 mg/dl Est Creatinine Clear Calc Drug Dose 21.2 ml/min Estimated GFR () 34.0 Estimated GFR (Non- 29.4 BUN/Creatinine Ratio 17.0 Random Glucose 125 mg/dl Lactic Acid Level 1.9 mmol/L Calcium Level 8.5 mg/dl Magnesium Level 2.1 mg/dl Assessment and Plan This is an 82 year old male with a past medical history of recent R cerebral infarction, high grade bilateral carotid stenosis, hx. of CAD s/p CABG x4, HTN, HLD, CKD stage 3, hx. of R BKA, recent admission for incarcerated hernia s/p repair and partial small bowel resection - presents with small bowel obstruction Small Bowel Obstruction in the setting of recent Incarcerated Hernia Repair/Partial Small Bowel Resection - patient with nausea/vomiting/abdominal pain on admission - CT suggests small bowel obstruction with mesenteric edema present - appreciate surgery input, conservative management at this time - NGT, NPO, IVFs - monitor vitals and labs, transition to IV medications for now Acute Kidney Injury superimposed on CKD stage 3 - creatinine up to 2 (baseline of 1.4) - likely from vomiting and decreased PO intake - IVFs and monitor creat Recent R Cerebral Infarction - PO medications on hold - will restart aspirin, statin as soon as possible Hx. of CAD - s/p CABG x4 - continue aspirin, statin, b-anabel when able High Grade Bilateral Carotid Stenosis - outpatient vascular follow-up for next week DVT ppx - subq heparin DNR
[2017-12-30] MEDS: PANTOprazole INJ 40 MG in SYRINGE 0 ML IV SCH (12:18)
[2017-12-30] MEDS: HEPARIN SOD 5000 UNIT/0.5 ML CARP SQ SCH ×2 (13:53→21:45)
[2017-12-30 15:07] VITALS: Ht 165.1 cm; Wt 52.6 kg
[2017-12-30 15:26] VITALS: BP 102/65; PULSE 81; TEMP 36.7; O2SAT 96
[2017-12-30 23:30] VITALS: BP 130/62; PULSE 76; TEMP 36.5; O2SAT 96
[2017-12-30 23:40] VITALS: O2SAT 96
[2017-12-31] MEDS: SODIUM CHLORIDE 0.9% 1000ML 1,000 ML IV SCH ×4 (01:25→20:53)
[2017-12-31] MEDS ORDERED: NURSING VERBAL MED ORDER ONE (04:30)
[2017-12-31] MEDS: HEPARIN SOD 5000 UNIT/0.5 ML CARP SQ SCH ×3 (05:41→21:27)
[2017-12-31] MEDS: MoRPHine SULFATE 2 MG/ML CARP IV PRN ×3 (06:02→23:45)
[2017-12-31 06:52] LABS: HEMATOCRIT 34.5 % (42-52); HEMOGLOBIN 10.8 g/dL (14.0-18.0); MEAN CELL VOLUME 104.2 fL (80-100); MEAN CORPUSCULAR HEMOGLOBIN 32.6 pg (25-34); MEAN CORPUSCULAR HGB CONC 31.3 g/dl (32-36); MEAN PLATELET VOLUME 11.1 fL (7.4-10.4); PLATELET COUNT 165 K/uL (130-400); RED CELL DISTRIBUTION WIDTH CV 15.8 % (11.5-14.5); RED CELL DISTRIBUTION WIDTH SD 60.3 fL (36.4-46.3)
--- NOTE | 2017-12-31 07:16 | SURGERY PROGRESS NOTE ---
DATE: 12/31/2017 Room #316. Anjel is feeling better. He is not complaining of any abdominal pain, although so far, he has had no flatus or bowel movement. The NG drainage overnight was 0 recorded. The abdomen is soft, there is no localized tenderness. His last vitals showed a temperature of 36.5, pulse 76, respirations 16, blood pressure 130/62, O2 sats 96 on room air. Urine output was 250 overnight. At this point, we will get an acute abdominal series or 2 views of chest and we will discuss the case with the primary surgeon, Dr. Cerna who did the surgery approximately 3 weeks ago and turned the care over to him. This was discussed with the patient.
[2017-12-31 07:19] LABS: CREATININE 1.89 mg/dl (0.60-1.40); POTASSIUM 4.7 mmol/L (3.5-5.1)
--- NOTE | 2017-12-31 08:10 | DIAGNOSTIC IMAGING REPORT ---
ABDOMEN 2VIEW W/PA CHEST RTN CLINICAL HISTORY: small bowel obstruction - reevalute bowel gas pattern obstruction COMPARISON STUDY: CT 12/29/2017 FINDINGS: Interval development of left basilar infiltrative change. Lungs otherwise are clear. Placement of a nasogastric tube within the gastric fundus. Small bowel distention persists but is diminished from the prior exam. Increased gas and fecal material within the colon is present. Stable postoperative changes of the chest including laminectomy of the lumbar spine. IMPRESSION: 1. Improved small bowel pattern with decreased number of moderately distended loops of small bowel. 2. Interval placement of nasogastric tube within the stomach. 3. Interval infiltrative process left lung base. The above report was generated using voice recognition software. It may contain grammatical, syntax or spelling errors. Electronically signed by: Tushar Perry M.D. 12/31/2017 8:09 AM Dictated Date/Time: 12/31/2017 8:07 AM
[2017-12-31] MEDS: HYDROCORTISONE IV 20 MG in SYRINGE 0 ML IV SCH (08:20)
[2017-12-31 08:26] VITALS: BP 133/82; PULSE 78; TEMP 36.8; O2SAT 96
--- NOTE | 2017-12-31 10:43 | Progress Note ---
Subjective Date of Service: Dec 31, 2017. Subjective Pt evaluation today including: conversation w/ patient, physical exam, lab review, review of studies, review of inpatient medication list Saw/examined the patient in room 360 He's resting comfortably NGT still in place; states he has less pain/tenderness of the abdomen No flatus/BM Problem List Medical Problems: (1) Abscess Status: Acute (2) Cellulitis and abscess of leg Status: Acute (3) Incarcerated umbilical hernia Status: Acute (4) Small bowel obstruction Status: Acute (5) Small bowel obstruction Status: Acute (6) Vomiting Status: Acute Review of Systems Constitutional: No fever, No chills Abdomen: + constipation, No pain, No nausea, No vomiting, No diarrhea, No GI bleeding Medications Current Inpatient Medications Medications (Trade) Dose Ordered Sig/Yandel Route Start Time Stop Time Status Last Admin Dose Admin Ondansetron HCl (Zofran Inj) 4 mg Q6H PRN IV 12/29/17 22:00 01/28/18 21:59 Sodium Chloride 1,000 ml @ 150 mls/hr Q6H40M IV 12/29/17 23:59 01/28/18 23:58 12/31/17 08:20 150 MLS/HR Aspirin (Ecotrin Tab) 81 mg QAM PO 12/30/17 09:00 01/29/18 08:59 Future Hold Morphine Sulfate (MoRPHine SULFATE INJ) 2 mg Q2H PRN IV 12/30/17 01:45 01/12/18 21:59 12/31/17 06:02 2 MG Pantoprazole Sodium 40 mg/ Syringe 10 ml @ 5 mls/min DAILY@11 IV 12/30/17 11:00 01/29/18 10:59 12/30/17 12:18 5 MLS/MIN Metoprolol Tartrate (Lopressor Iv) 2.5 mg Q6 IV. 12/30/17 06:00 01/29/18 05:59 Future Hold Acetaminophen 650 mg/Empty Bag 65 ml @ 260 mls/hr Q6H PRN IV 12/30/17 01:45 01/29/18 01:44 Hydrocortisone Sodium Succinate 20 mg/Syringe 0.4 ml @ 1.6 mls/min QAM IV 12/30/17 09:00 01/29/18 08:59 12/31/17 08:20 1.6 MLS/MIN Heparin Sodium (Porcine) (Heparin Sq 5000 Unit/0.5ml) 5,000 unit Q8 SQ 12/30/17 14:00 01/29/18 13:59 12/31/17 05:41 5,000 UNIT Objective Vital Signs Date Time Temp Pulse Resp B/P (MAP) Pulse Ox O2 Delivery O2 Flow Rate FiO2 12/31/17 08:26 36.8 78 18 133/82 (99) 96 Room Air 12/31/17 08:00 Room Air 12/30/17 23:40 96 Room Air 12/30/17 23:30 36.5 76 16 130/62 (84) 96 Room Air 12/30/17 16:10 Room Air 12/30/17 15:26 36.7 81 18 102/65 (77) 96 Room Air Physical Exam General Appearance: no apparent distress, + pertinent finding (NGT in place) Respiratory/Chest: no respiratory distress, no accessory muscle use Cardiovascular: no edema Abdomen: non tender, soft, + abnormal bowel sounds (decreased bowel sounds lower quadrants) Extremities: + pertinent finding (R BKA) Laboratory Results Last 24 Hours Test 12/31/17 06:22 White Blood Count 7.10 K/uL Red Blood Count 3.31 M/uL Hemoglobin 10.8 g/dL Hematocrit 34.5 % Mean Corpuscular Volume 104.2 fL Mean Corpuscular Hemoglobin 32.6 pg Mean Corpuscular Hemoglobin Concent 31.3 g/dl RDW Standard Deviation 60.3 fL RDW Coefficient of Variation 15.8 % Platelet Count 165 K/uL Mean Platelet Volume 11.1 fL Sodium Level 145 mmol/L Potassium Level 4.7 mmol/L Chloride Level 116 mmol/L Carbon Dioxide Level 21 mmol/L Anion Gap 8.0 mmol/L Blood Urea Nitrogen 31 mg/dl Creatinine 1.89 mg/dl Est Creatinine Clear Calc Drug Dose 23.2 ml/min Estimated GFR () 38.0 Estimated GFR (Non- 32.8 BUN/Creatinine Ratio 16.5 Random Glucose 77 mg/dl Calcium Level 8.0 mg/dl Assessment and Plan This is an 82 year old male with a past medical history of recent R cerebral infarction, high grade bilateral carotid stenosis, hx. of CAD s/p CABG x4, HTN, HLD, CKD stage 3, hx. of R BKA, recent admission for incarcerated hernia s/p repair and partial small bowel resection - presents with small bowel obstruction Small Bowel Obstruction in the setting of recent Incarcerated Hernia Repair/Partial Small Bowel Resection 12/31 - appreciate surgery input - continue NGT with suction, but no drainage from last evening, may pull this? - would continue IVFs and NPO status - advance diet when he is passing gas/BM 12/30 - patient with nausea/vomiting/abdominal pain on admission - CT suggests small bowel obstruction with mesenteric edema present - appreciate surgery input, conservative management at this time - NGT, NPO, IVFs - monitor vitals and labs, transition to IV medications for now Acute Kidney Injury - improving superimposed on CKD stage 3 - creatinine up to 2 (baseline of 1.4), down to 1.9 on 12/31 - likely from vomiting and decreased PO intake - IVFs and monitor creat Recent R Cerebral Infarction - PO medications on hold - will restart aspirin, statin as soon as possible - outpatient Zio patch Hx. of CAD - s/p CABG x4 - continue aspirin, statin, b-anabel when able High Grade Bilateral Carotid Stenosis - outpatient vascular follow-up for 01/03 DVT ppx - subq heparin DNR
[2017-12-31] MEDS: PANTOprazole INJ 40 MG in SYRINGE 0 ML IV SCH (11:29)
[2017-12-31 14:49] VITALS: BP 132/64; PULSE 87; TEMP 36.4; O2SAT 93
--- NOTE | 2017-12-31 15:17 | Surgery Consultation ---
Consultation Date of Consultation: Dec 31, 2017. Attending Physician: Eloisa Lehman DO History of Present Illness Patient is a 82M with PMHx significant for CAD s/p CABG x 4 in 2016, CVA, HTN, HLD and RA. who presents to the ED tonight with abdominal pain, nausea and vomiting which began this morning. He is 3 weeks s/p incarcerated umbilical hernia repair w/ partial small bowel resection with Dr. Cerna. Reports he has been doing well since this procedure and has not had any problems until today. Reports his abdominal pain is generalized and has been getting worse throughout the day. Multiple episodes of vomiting, no hematemesis. Last BM this morning. Denies any flatus since then. Last ate this morning and threw up afterwards. Urinating without trouble. Denies fever/chills. Denies any other abdominal surgeries. Patient does take Aspirin 81mg PO QD. Denies use of other blood thinning or anticoagulant medications. POC Lactic acid 3.31. WBC WNL. CT shows findings significant for small bowel obstruction with transition point proximal to small bowel anastamosis, extensive mesenteric edema surrounding the mid to distal small bowel loops, fluid surround the distal small bowel loops. No pneumatosis or pneumoperitoneum. Dr. Cerna is on vacation now, I cover this pt, I reviewed pt's H/P with pt at bedside, pt developed abdominal pain 3 days ago, pt has not passed gas and Bm yet, NT tube is still in, nothing comes out from NG tube, pt is still have some abdominal pain, no nausea, no vomiting, pt denies fever, pt develops CVA right after surgery 3 weeks ago, now pt's CVA is recovering, only some weakness on left arm, Past Medical/Surgical History Medical Problems: (1) Abscess Status: Acute (2) Cellulitis and abscess of leg Status: Acute (3) Incarcerated umbilical hernia Status: Acute (4) Small bowel obstruction Status: Acute (5) Small bowel obstruction Status: Acute (6) Vomiting Status: Acute Family History Heart disease Hypertension Social History Smoking Status: Former Smoker Smokeless Tobacco Use: No Alcohol Use: none Drug Use: none Marital Status: Housing Status: lives with family Occupation Status: retired Allergies Coded Allergies: Iodinated Diagnostic Agents (Verified Allergy, Unknown, HIVES, 11/29/17) Sulfa Antibiotics (Verified Allergy, Unknown, HIVES, 11/29/17) Dutasteride (Unverified Adverse Reaction, Unknown, Skin lesions, 11/29/17) Home Medications Scheduled Aspirin (Aspirin EC Low Dose), 81 MG PO QAM Atorvastatin (Lipitor), 40 MG PO HS Calcium-Magnesium W/ Vitamin D (Citracal Calcium+D Slow R), 1 TAB PO DAILY Folic Acid (Folvite), 1 MG PO [id number] Lisinopril (Lisinopril), 5 MG PO QAM Methotrexate (Methotrexate), 10 MG PO WK Metoprolol Tartrate (Lopressor) (Lopressor), 25 MG PO BID Multiple Vitamins W/ Minerals (Centrum Silver), 1 TAB PO DAILY Omeprazole (Prilosec), 20 MG PO DAILY Prednisone (Prednisone), 5 MG PO DAILY Scheduled PRN Nitroglycerin (Nitrostat), 0.4 MG UT UD PRN for Chest Pain Current Inpatient Medications Current Inpatient Medications Medications (Trade) Dose Ordered Sig/Yandel Route Start Time Stop Time Status Last Admin Dose Admin Ondansetron HCl (Zofran Inj) 4 mg Q6H PRN IV 12/29/17 22:00 01/28/18 21:59 Sodium Chloride 1,000 ml @ 150 mls/hr Q6H40M IV 12/29/17 23:59 01/28/18 23:58 12/31/17 14:13 150 MLS/HR Aspirin (Ecotrin Tab) 81 mg QAM PO 12/30/17 09:00 01/29/18 08:59 Future Hold Morphine Sulfate (MoRPHine SULFATE INJ) 2 mg Q2H PRN IV 12/30/17 01:45 01/12/18 21:59 12/31/17 06:02 2 MG Pantoprazole Sodium 40 mg/ Syringe 10 ml @ 5 mls/min DAILY@11 IV 12/30/17 11:00 01/29/18 10:59 12/31/17 11:29 5 MLS/MIN Metoprolol Tartrate (Lopressor Iv) 2.5 mg Q6 IV. 12/30/17 06:00 01/29/18 05:59 Future Hold Acetaminophen 650 mg/Empty Bag 65 ml @ 260 mls/hr Q6H PRN IV 12/30/17 01:45 01/29/18 01:44 Hydrocortisone Sodium Succinate 20 mg/Syringe 0.4 ml @ 1.6 mls/min QAM IV 12/30/17 09:00 01/29/18 08:59 12/31/17 08:20 1.6 MLS/MIN Heparin Sodium (Porcine) (Heparin Sq 5000 Unit/0.5ml) 5,000 unit Q8 SQ 12/30/17 14:00 01/29/18 13:59 12/31/17 14:04 5,000 UNIT Review of Systems Constitutional: No fever, No chills, No sweats, No weight loss, No weakness, No fatigue, No problem reported Eyes: No worsening of vision, No eye pain, No redness, No discharge, No diplopia, No problem reported ENT: No hearing loss, No unusual epistaxis, No nasal symptoms, No sore throat, No tinnitus, No dental problems, No trouble swallowing, No problem reported Respiratory: No cough, No sputum, No wheezing, No shortness of breath, No dyspnea on exertion, No dyspnea at rest, No hemoptysis, No problem reported Cardiovascular: + problem reported (S/P CABG X 4 2 dana ago, ) Abdomen: + pain, + problem reported (S/P repair umbilical hernia with parial small bowel resection 3 weeks ago) Genitourinary - Male: No hematuria, No dysuria, No urinary frequency, No urinary urgency, No urinary hesitancy, No urinary retention, No urinary incontinence, No penile discharge, No lesions, No impotence, No problem reported Neurologic: + weakness, + problem reported (CVA 3 weeks ago) Hematologic / Lymphatic: No abnormal bleeding/bruising, No clotting problems, No swollen lymph nodes, No night sweats, No problem reported Integumentary: No rash, No itch, No new/changing skin lesions, No color change , No bleeding, No problem reported Physical Exam Date Time Temp Pulse Resp B/P (MAP) Pulse Ox O2 Delivery O2 Flow Rate FiO2 12/31/17 08:26 36.8 78 18 133/82 (99) 96 Room Air 12/31/17 08:00 Room Air 12/30/17 23:40 96 Room Air 12/30/17 23:30 36.5 76 16 130/62 (84) 96 Room Air 12/30/17 16:10 Room Air 12/30/17 15:26 36.7 81 18 102/65 (77) 96 Room Air General Appearance: WD/WN, no apparent distress Head: normocephalic Eyes: normal inspection ENT: normal ENT inspection Neck: supple, no JVD Respiratory/Chest: chest non-tender, lungs clear Cardiovascular: regular rate, rhythm, no edema, no gallop, no JVD, no murmur Abdomen/GI: normal bowel sounds, non tender, soft, + abnormal bowel sounds Extremities/Musculoskelatal: normal inspection, no calf tenderness, normal capillary refill, + pertinent finding (Right BKA) Neurologic/Psych: no motor/sensory deficits, alert, normal mood/affect (left arm weakness, ) Skin: normal color, warm/dry, no rash Laboratory Results Last 24 Hours Test 12/31/17 06:22 White Blood Count 7.10 K/uL Red Blood Count 3.31 M/uL Hemoglobin 10.8 g/dL Hematocrit 34.5 % Mean Corpuscular Volume 104.2 fL Mean Corpuscular Hemoglobin 32.6 pg Mean Corpuscular Hemoglobin Concent 31.3 g/dl RDW Standard Deviation 60.3 fL RDW Coefficient of Variation 15.8 % Platelet Count 165 K/uL Mean Platelet Volume 11.1 fL Sodium Level 145 mmol/L Potassium Level 4.7 mmol/L Chloride Level 116 mmol/L Carbon Dioxide Level 21 mmol/L Anion Gap 8.0 mmol/L Blood Urea Nitrogen 31 mg/dl Creatinine 1.89 mg/dl Est Creatinine Clear Calc Drug Dose 23.2 ml/min Estimated GFR () 38.0 Estimated GFR (Non- 32.8 BUN/Creatinine Ratio 16.5 Random Glucose 77 mg/dl Calcium Level 8.0 mg/dl Assessment & Plan CT scan-FINDINGS: A 6 mm left lower lobe nodule on image 8. A few bibasilar linear densities. No pneumoperitoneum. No pneumatosis. Posterior fusion hardware seen within the lumbar spine. There are are also poststernotomy changes. There is a small hiatus hernia and thickening of the distal esophagus. No evidence for an umbilical hernia. The unenhanced liver, spleen, and adrenal glands are unremarkable. Multiple bilateral renal hypodense lesions and bilateral renal calculi are again noted. No hydronephrosis. A 3.1 cm infrarenal abdominal aortic aneurysm. The unenhanced pancreas and gallbladder are unremarkable. No retroperitoneal lymphadenopathy. The prostate gland is enlarged. No change in the 1 cm hypodense focus within the left anterior prostate gland. Small amount of pelvic fluid. Colonic diverticulosis. The majority of the colon is decompressed. The proximal to mid small bowel loops are mildly distended and gas-filled measuring up to 3.4 cm. Evidence for small bowel anastomosis within the midabdomen. The distal small bowel loops are decompressed and concentrated within the lower pelvis. There is extensive surrounding mesenteric edema and fluid within the small bowel loops within the deep pelvis. There is also mild thickening and edema within the small bowel loops at the midabdomen. There is likely a transition point for the suspected small bowel obstruction immediately proximal to the small bowel anastomosis. This is best seen on image 199 within the midabdomen. IMPRESSION: 1. Small bowel obstruction to the level of the midabdomen where there is an area of focal narrowing immediately proximal to the small bowel anastomosis consistent with the transition point. . 2. Extensive mesenteric edema surrounding the mid to distal small bowel loops. There is also fluid surrounding the distal small bowel loops which are concentrated within the deep pelvis. Some of this could related to the recent postoperative change. However, these findings raise the possibility of vascular compromise/bowel ischemia. However, there is no pneumoperitoneum or pneumatosis at this time. Clinical correlation recommended. 3. A 6 mm left lower lobe nodule. 4. Additional findings as described above. Assessment: pt is a 82 year old male who presents to ER with abdominal pain, CT scan- Dx SBO, pt has not passed gas and BM over 3 days, I recommend to do explatory laparotomy possible bowel resection or stoma, D/W benefits, risk and alternatives of the surgery, the risks - infection, bleeding , incisional hernia, [place], DVT, stroke, , pt understood, he and his agree with surgery, i answered all questions,
--- NOTE | 2017-12-31 16:50 | Progress Note ---
Progress Note Date of Service Dec 31, 2017. Progress Note Pt is scheduled for ex lap with bowel resection for SBO with Dr. Saini tomorrow. Pt has a h/o CAD s/p CABG x 4v in 2016, HTN, hyperlipidemia, CKD stage III, RA on chronic prednisone and CA stenosis. Pt is s/p hernia repair with small bowel on resection on 11/29/17. His post op was complicated with generalized weakness requiring post op intubation as well as left sided weakness. Pt was hypotensive and bradycardic intraop that was not responsive to pressors but was responsive to solucortef. MRI done at that time showed watershed infarct on R MCA. CA US showed bilateral >70% stenosis on ICA. Pt has an appointment to see Dr. Haque for R CEA this , but will probably unable to keep that appointment since he is hospitalized. Discussed case with Dr. Saini about consulting Dr. Haque for recommendation given his risks of another stroke with his CHAUNCEY and Dr. Saini agreed to consult Dr. Haque prior to bringing patient to OR. Risks of anesthesia discussed with patient including risks of another stroke and post op intubation. Pt understands and agreed to proceed. Consent was signed. Pt was advised to be NPO.
[2017-12-31 23:28] VITALS: BP_SYST 182; BP_SYST 188; BP_DIAS 83; BP_DIAS 97; PULSE 100; PULSE 101; TEMP 36.9; O2SAT 94
[2018-01-01 00:48] VITALS: BP 144/81; PULSE 89
[2018-01-01] MEDS: SODIUM CHLORIDE 0.9% 1000ML 1,000 ML IV SCH ×2 (03:19→10:55)
[2018-01-01] MEDS: MoRPHine SULFATE 2 MG/ML CARP IV PRN ×2 (03:25→07:48)
[2018-01-01] MEDS: HEPARIN SOD 5000 UNIT/0.5 ML CARP SQ SCH ×2 (05:50→14:00)
[2018-01-01 07:47] VITALS: BP 144/93; PULSE 91; TEMP 36.8; O2SAT 94
[2018-01-01] MEDS: HYDROCORTISONE IV 20 MG in SYRINGE 0 ML IV SCH (07:48)
--- NOTE | 2018-01-01 07:48 | SURGERY PROGRESS NOTE ---
DATE: 01/01/2018 Dr. Saini assumed the care of Mr. Barrera yesterday. We have transferred him back to the primary service that had done the surgery about 3 weeks ago. At this point, we will transfer the care officially to his team.
[2018-01-01 08:20] VITALS: BP 135/62; PULSE 87; TEMP 36.6; O2SAT 96
--- NOTE | 2018-01-01 08:45 | Medical Consult ---
Consultation Note Date of Service Jan 01, 2018. (Mercedez Stevens, PAMelissa) Consultation Note Chief Complaint BL ICAS, R hemispheric CVA History of Present Illness The patient is a 82 year old male with multiple medical problems, including RA, HTN, CAD, GERD, who also had R hemispheric CVA perioperatively after incarcerated hernia repair by Dr Cerna 1 month ago, seen today for BL carotid stenosis. Pt was also seen by vascular during that admission and advised to have a neck MRA and follow up in our office(pt was scheduled in office this week). Pt states no hx of CVA or TIA in past. States postoperatively he noted severe L hand weakness, which has improved significantly since last admission, but not completely resolved. Had sudden onset severe abd pain 3 days ago and came to [facility], now scheduled for ex lap d/t bowel obstruction later this AM by general surgery. Admits increased nausea this AM and vomiting. NG tube present. Denies MURPHY, fever, chills, chest pain, SOB, abd pain presently, rest pain, claudication, other complaints. Of note, pt is post R BKA. US demonstrated elevated systolic velocities BL, with estimated stenosis of >70% . MRA demonstrates severe Bl ICA stenosis, worse on R, also with subclavian art stenosis. Allergies Coded Allergies: Iodinated Diagnostic Agents (Verified Allergy, Unknown, HIVES, 11/29/17) Sulfa Antibiotics (Verified Allergy, Unknown, HIVES, 11/29/17) Dutasteride (Unverified Adverse Reaction, Unknown, Skin lesions, 11/29/17) Home Medications Scheduled Aspirin (Aspirin EC Low Dose), 81 MG PO QAM Atorvastatin (Lipitor), 40 MG PO HS Calcium-Magnesium W/ Vitamin D (Citracal Calcium+D Slow R), 1 TAB PO DAILY Folic Acid (Folvite), 1 MG PO 6XWK Methotrexate (Methotrexate), 10 MG PO WK Metoprolol Tartrate (Lopressor) (Lopressor), 25 MG PO BID Multiple Vitamins W/ Minerals (Centrum Silver), 1 TAB PO DAILY Omeprazole (Prilosec), 20 MG PO DAILY Prednisone (Prednisone), 5 MG PO DAILY Scheduled PRN Nitroglycerin (Nitrostat), 0.4 MG UT UD PRN for Chest Pain Oxycodone/Acetaminophen 5MG/325MG (Percocet 5MG/325MG), 1 TABLET PO Q4H PRN for Pain Problem List Medical Problems: (1) BPH (benign prostatic hyperplasia) (2) CAD (coronary artery disease) (3) HLD (hyperlipidemia) (4) HTN (hypertension) (5) Rheumatoid arthritis (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 Surgical Problems: (1) History of lumbosacral spine surgery (2) Hx of CABG (3) S/P bilateral inguinal hernia repair Surgical / Medical History Hx Cardiac Surgery: Yes Hx Abdominal Surgery: No Hx Cancer Surgery: No Hx Thoracic Surgery: No Hx Orthopedic: No Hx Urinary Tract Surgery: No HX Other Surgery: No Past Medical/Surgical History: Heart Disease, Hypertension Family History + HTN, CAD Social History Smoking Status: Former Smoker Hx Tobacco Use In Past Year?: No Hx Alcohol Use - Type & Amnt: No Hx Substance Use -Type & Amnt: No Review of Systems Constitutional: + malaise, No chills, No fever Skin: No change in color Eyes: No visual changes ENMT: No sore throat Respiratory: No cough, No TINAJERO, No hemoptysis, No short of breath Cardiovascular: + edema (LLE), No chest pain, No palpitations, No syncope, No intermittent claudication Gastrointestinal: No abdominal pain, No nausea, No vomiting Neurologic: + weakness (L arm/hand), No dizziness, No headache, No lethargy Physical Exam Constitutional: General Apperance: well-nourished, well-developed Level of Distress: NAD, chronically ill , pale Psychiatric: Mental Status: active & alert, normal mood, normal affect Orientation: oriented except where noted, to time, to place, to person Memory: recent memory normal, remote memory normal Head: normocephalic, atraumatic Eyes: EOM: EOMI ENMT: normal ENT inspection, hearing grossly normal Neck: supple, trachea midline Lungs: Respiratory effort: no dyspnea Auscultation: no rales/crackles, no rhonchi, decreased breath sounds Cardiovascular: Apical Impulse: not displaced Heart Auscultation: RRR, no rubs, no gallops Peripheral Pulses: Pulses: full and equal, in all extremities except if noted Bruits: none appreciated Carotid Pulse: normal on the left, normal on the right Brachial Pulses: normal on the left, normal on the right Radial Pulse: normal on the left, normal on the right Femoral Pulse: normal on the left, normal on the right Posterior Tibialis Pulse: pertinent finding (nonpalpable LLE, RLE BKA) Dorsalis Pedis Pulse: pertinent finding (RLE BKA, nonpalpable LLE) Abdomen: Bowel Sounds: normal Inspection & Palpation: soft, pertinent finding generalized tenderness, mild distention. Musculoskeletal: pertinent finding (LUE strength 4/5, RUE 5/5) Extremities: Upper Right: no cyanosis, no edema, no varicosities Upper Left: no cyanosis, no edema, no varicosities Lower Right: no cyanosis, no edema, no varicosities Lower Left: no cyanosis, no varicosities, edema (+2) Neurologic: Cranial Nerves: grossly intact Sensation: grossly intact Assessment and Plan ASSESSMENT and PLAN: BL ICAS post R hemispheric CVA Pt discussed with Dr Haque, states pt at moderate risk for perioperative cerebrovascular event d/t recent CVA which occurred 1 month ago perioperatively and degree of BL ICA stenosis. Pt states he understands. Pt appt in office cx for this week, will reschedule as outpt to discuss CEA. L hand weakness improving. (Mercedez Stevens, PA-C) Patient was seen, examined, and chart reviewed. Agree with exam and treatment plan of the Vascular PA. (Jose Haque M.D.)
--- NOTE | 2018-01-01 09:26 | Surgery Progress Note ---
Surgery Progress Note Date of Service Jan 01, 2018. Subjective pt is still have not passed any flatus and BM, pt is still have abdominal pain, some nausea no vomiting, NG 55ml. Objective Vital Signs: Date Time Temp Pulse Resp B/P (MAP) Pulse Ox O2 Delivery O2 Flow Rate FiO2 01/01/18 08:20 36.6 87 17 135/62 (86) 96 Room Air 01/01/18 08:00 Room Air 01/01/18 00:48 89 144/81 (102) 12/31/17 23:35 Room Air 12/31/17 23:28 36.9 101 18 182/83 (116) 94 Room Air 100 188/97 (127) 12/31/17 15:35 Room Air 12/31/17 14:49 36.4 87 18 132/64 (86) 93 Room Air General Appearance: WD/WN, + mild distress Head: normocephalic Neck: supple, no JVD Respiratory/Chest: chest non-tender, lungs clear, normal breath sounds Cardiovascular: regular rate, rhythm, no edema, no gallop, no JVD, no murmur Abdomen: normal bowel sounds, + distended, + guarding, + tenderness Extremities: non-tender, + pertinent finding (Right BKA, left arm weakness, ) Assessment & Plan IMP SBO not passed any gas or BM 5 days, I recommend to do emergent exploratory laparotomy, possible bowel resection or stoma, D/W benefits, risks and alternatives of the surgery, the risks - infection, bleeding, SBO recurrence, DC, DVT, stroke, multiple organs failure, , pt understood, he agrees with the surgery, I answered all questions, based on pt had CVA last 3 weeks ago, according vascular surgeon consult that pt has moderated risks for CVA and , pt understood, he is still want to do surgery.
[2018-01-01] MEDS: PANTOprazole INJ 40 MG in SYRINGE 0 ML IV SCH (10:55)
--- NOTE | 2018-01-01 11:14 | Progress Note ---
Progress Note Date of Service Jan 01, 2018. Progress Note Patient scheduled for exploratory laparotomy later today with Dr. Saini. Spoke with today due to patients recent CVA during his incarcerated hernia repair. The patient has uncorrected severe ICA and remains high risk for perioperative morbidity and mortality from surgery, especially from repeat stroke. When I saw the patient today he was with his [id number]. The patient was sitting up in bed, laughing and smiling, but he does report continued abdominal pain with inability to pass bowels or flatus. The patient also continues to have residual weakness in his left UE after his stroke, although the patient feels it is improving. On exam the patient has an NG tube in place and a favorable airway for intubation (MP II, good neck extension and mouth opening). In addition, his lungs are clear and heart has RRR without M/R/ G. Right neck is significant for bruit. I spoke to the patient and his [id number] about the increased risk associated with the planned procedure, including high risk of and stroke. The patient stated that he still wishes to proceed, but that he wants to see his and son first. The patient is aware that he is at risk of sepsis if his bowels were to worsen while awaiting the arrival of his family. The [id number] is making arrangements to have the patient's and son come to the hospital. When they arrive we will have an in depth discussion about the high risk nature of the case, with an anesthetic plan to include preinduction arterial line, possible central line, large bore IV access, stress dose steroids, RSI, TAP block placement to decrease postoperative pain, probable use of intraoperative pressors, and patient will likely be sent intubated to ICU afterwards. I spoke to Jesusita the patient's floor nurse who will call my number directly when the patient's family arrives. Yolette Carlson MD, PhD Anesthesiology
[2018-01-01 11:31] VITALS: BP 148/72; PULSE 72; TEMP 36.8; O2SAT 96
[2018-01-01 12:10] LABS: BASO % 0.2 %; BASO ABS # 0.01 K/uL (0-0.2); EOS % 0.3 %; EOS ABS # 0.02 K/uL (0-0.5); HEMATOCRIT 32.9 % (42-52); HEMOGLOBIN 10.5 g/dL (14.0-18.0); IG# 0.01 K/uL (0.00-0.02); LYMPH % 10.2 %; LYMPH ABS # 0.61 K/uL (1.2-3.4); MEAN CELL VOLUME 103.5 fL (80-100); MEAN PLATELET VOLUME 10.4 fL (7.4-10.4); MONO % 5.5 %; MONO ABS # 0.33 K/uL (0.11-0.59); NEUT % 83.6 %; NEUT ABS # 5.02 K/uL (1.4-6.5); PLATELET COUNT 164 K/uL (130-400); RED CELL DISTRIBUTION WIDTH CV 15.6 % (11.5-14.5); RED CELL DISTRIBUTION WIDTH SD 58.4 fL (36.4-46.3)
[2018-01-01 12:13] LABS: MEAN CORPUSCULAR HGB CONC 31.9 g/dl (32-36)
[2018-01-01 12:35] LABS: ALBUMIN 2.7 gm/dl (3.4-5.0); CALCIUM 7.8 mg/dl (8.5-10.1); CREATININE 1.59 mg/dl (0.60-1.40); PHOSPHORUS 3.2 mg/dl (2.5-4.9); POTASSIUM 4.3 mmol/L (3.5-5.1); TOTAL PROTEIN 4.9 gm/dl (6.4-8.2)
--- NOTE | 2018-01-01 12:40 | Progress Note ---
Internal Med Progress Note Date of Service: Jan 01, 2018. Provider Documentation: SUBJECTIVE: Patient was seen at bedside. No acute distress. Continues to not be passing gas or make bowel movement since Sunday12/29/17. Transfer centers to [facility] (spoke with a Dr. Key, surgeon) and [facility] in [place] was called at the request of Dr. Erin Saini who has been the surgeon following the patient's case for small bowel obstruction OBJECTIVE: General Appearance: no apparent distress, NG tube in place Respiratory/Chest: no respiratory distress, no accessory muscle use Cardiovascular: no edema Abdomen: non tender, soft, decreased bowel sounds Extremities: R BKA ASSESSMENT & PLAN: 82 yr male with PMH H/O CAD s/p CABG, CVA with residual LUE weakness, HTN, HLD, RA, BPH, treated 3 weeks ago for incarcerated umbilical hernia and partial small bowel resection by Dr. Cerna, presents with sudden onset of abdominal pain which is umbilical and region, 7/10 intensity, constant, sharp in quality, nonradiating, associated with multiple episodes of nausea and vomiting and found to have small bowel obstruction with transition point proximal to small bowel anastomosis and elevated lactate levels ABDOMEN AND PELVIS CT WITH ORAL CONTRAST 12/29/17 "FINDINGS: A 6 mm left lower lobe nodule on image 8. A few bibasilar linear densities. No pneumoperitoneum. No pneumatosis. Posterior fusion hardware seen within the lumbar spine. There are are also poststernotomy changes. There is a small hiatus hernia and thickening of the distal esophagus. No evidence for an umbilical hernia. The unenhanced liver, spleen, and adrenal glands are unremarkable. Multiple bilateral renal hypodense lesions and bilateral renal calculi are again noted. No hydronephrosis. A 3.1 cm infrarenal abdominal aortic aneurysm. The unenhanced pancreas and gallbladder are unremarkable. No retroperitoneal lymphadenopathy. The prostate gland is enlarged. No change in the 1 cm hypodense focus within the left anterior prostate gland. Small amount of pelvic fluid. Colonic diverticulosis. The majority of the colon is decompressed. The proximal to mid small bowel loops are mildly distended and gas -filled measuring up to 3.4 cm. Evidence for small bowel anastomosis within the midabdomen. The distal small bowel loops are decompressed and concentrated within the lower pelvis. There is extensive surrounding mesenteric edema and fluid within the small bowel loops within the deep pelvis. There is also mild thickening and edema within the small bowel loops at the midabdomen. There is likely a transition point for the suspected small bowel obstruction immediately proximal to the small bowel anastomosis. This is best seen on image 199 within the midabdomen. IMPRESSION: 1. Small bowel obstruction to the level of the midabdomen where there is an area of focal narrowing immediately proximal to the small bowel anastomosis consistent with the transition point. 2. Extensive mesenteric edema surrounding the mid to distal small bowel loops. There is also fluid surrounding the distal small bowel loops which are concentrated within the deep pelvis. Some of this could related to the recent postoperative change. However, these findings raise the possibility of vascular compromise/bowel ischemia. However, there is no pneumoperitoneum or pneumatosis at this time. Clinical correlation recommended. 3. A 6 mm left lower lobe nodule. 4. Additional findings as described above." ABDOMEN 2VIEW 12/31/17 "FINDINGS: Interval development of left basilar infiltrative change. Lungs otherwise are clear. Placement of a nasogastric tube within the gastric fundus. Small bowel distention persists but is diminished from the prior exam. Increased gas and fecal material within the colon is present. Stable postoperative changes of the chest including laminectomy of the lumbar spine. IMPRESSION: 1. Improved small bowel pattern with decreased number of moderately distended loops of small bowel. 2. Interval placement of nasogastric tube within the stomach. 3. Interval infiltrative process left lung base. 01/01/18 Transfer centers to [facility] (spoke with a Dr. Key, surgeon) and [facility] in [place] was called at the request of Dr. Erin Saini who has been the surgeon following the patient's case for small bowel obstruction [facility] Dr. Key has accepted the patient. Bed available for the patient [facility]. 01/01/18 labs notable for serum magnesium 1.9 and 1 gram IV magnesium ordered, hypernatremia with serum sodium 147 and IV normal saline ordered to be stopped, and improvements in renal function with improvements in acute kidney injury as BUN 31 and creatinine 1.59 Disposition: Patient to be transported to [facility] for further evaluation and management of the small bowel obstruction Discharge diagnosis small bowel obstruction acute kidney injury hypernatremia from IV fluids High Grade Bilateral Carotid Stenosis (outpatient vascular follow-up for 01/03) history of right BKA history of hernia repair with mesh history of open heart surgery (CABG x4 and home medications of on aspirin, statin, b-anabel) history of stroke Vital Signs: Date Time Temp Pulse Resp B/P (MAP) Pulse Ox O2 Delivery O2 Flow Rate FiO2 01/01/18 11:31 36.8 72 17 148/72 (97) 96 Room Air 01/01/18 08:20 36.6 87 17 135/62 (86) 96 Room Air 01/01/18 08:00 Room Air 01/01/18 00:48 89 144/81 (102) 12/31/17 23:35 Room Air 12/31/17 23:28 36.9 101 18 182/83 (116) 94 Room Air 100 188/97 (127) 12/31/17 15:35 Room Air 12/31/17 14:49 36.4 87 18 132/64 (86) 93 Room Air Lab Results: Results Past 24 Hours Test 01/01/18 12:01 Range/Units White Blood Count 6.00 4.8-10.8 K/uL Red Blood Count 3.18 4.7-6.1 M/uL Hemoglobin 10.5 14.0-18.0 g/dL Hematocrit 32.9 42-52 % Mean Corpuscular Volume 103.5 80-100 fL Mean Corpuscular Hemoglobin 33.0 25-34 pg Mean Corpuscular Hemoglobin Concent 31.9 32-36 g/dl Platelet Count 164 130-400 K/uL Mean Platelet Volume 10.4 7.4-10.4 fL Neutrophils (%) (Auto) 83.6 % Lymphocytes (%) (Auto) 10.2 % Monocytes (%) (Auto) 5.5 % Eosinophils (%) (Auto) 0.3 % Basophils (%) (Auto) 0.2 % Neutrophils # (Auto) 5.02 1.4-6.5 K/uL Lymphocytes # (Auto) 0.61 1.2-3.4 K/uL Monocytes # (Auto) 0.33 0.11-0.59 K/uL Eosinophils # (Auto) 0.02 0-0.5 K/uL Basophils # (Auto) 0.01 0-0.2 K/uL RDW Standard Deviation 58.4 36.4-46.3 fL RDW Coefficient of Variation 15.6 11.5-14.5 % Immature Granulocyte % (Auto) 0.2 % Immature Granulocyte # (Auto) 0.01 0.00-0.02 K/uL Sodium Level 147 136-145 mmol/L Potassium Level 4.3 3.5-5.1 mmol/L Chloride Level 120 98-107 mmol/L Carbon Dioxide Level 15 21-32 mmol/L Anion Gap 12.0 3-11 mmol/L Blood Urea Nitrogen 31 7-18 mg/dl Creatinine 1.59 0.60-1.40 mg/dl Est Creatinine Clear Calc Drug Dose 27.6 ml/min Estimated GFR () 46.8 Estimated GFR (Non- 40.4 BUN/Creatinine Ratio 19.2 10-20 Random Glucose 76 70-99 mg/dl Calcium Level 7.8 8.5-10.1 mg/dl Phosphorus Level 3.2 2.5-4.9 mg/dl Magnesium Level 1.9 1.8-2.4 mg/dl Total Bilirubin 0.7 0.2-1 mg/dl Aspartate Amino Transf (AST/SGOT) 15 15-37 U/L Alanine Aminotransferase (ALT/SGPT) 14 12-78 U/L Alkaline Phosphatase 46 45-117 U/L Total Protein 4.9 6.4-8.2 gm/dl Albumin 2.7 3.4-5.0 gm/dl Globulin 2.2 2.5-4.0 gm/dl Albumin/Globulin Ratio 1.2 0.9-2
[2018-01-01] MEDS ORDERED: MAGNESIUM SULFATE 1GM / D5W 1 GM in PREMIXED IN D5W 100 ML IV STA (12:47)
--- NOTE | 2018-01-01 13:20 | Discharge Instructions ---
Discharge Instructions Date of Service Jan 01, 2018. Admission Reason for Admission: Abdominal Pain Discharge Discharge Diagnosis / Problem: small bowel obstruction Discharge Goals Goal(s): Decrease discomfort, Improve function, Improve disease control Activity Recommendations Activity Limitations: per Instructions/Follow-up section Shower/Bathe: no limitations . Instructions / Follow-Up Instructions / Follow-Up 82 yr male with PMH H/O CAD s/p CABG, CVA with residual LUE weakness, HTN, HLD, RA, BPH, treated 3 weeks ago for incarcerated umbilical hernia and partial small bowel resection by Dr. Cerna, presents with sudden onset of abdominal pain which is umbilical and region, 7/10 intensity, constant, sharp in quality, nonradiating, associated with multiple episodes of nausea and vomiting and found to have small bowel obstruction with transition point proximal to small bowel anastomosis and elevated lactate levels ABDOMEN AND PELVIS CT WITH ORAL CONTRAST 12/29/17 "FINDINGS: A 6 mm left lower lobe nodule on image 8. A few bibasilar linear densities. No pneumoperitoneum. No pneumatosis. Posterior fusion hardware seen within the lumbar spine. There are are also poststernotomy changes. There is a small hiatus hernia and thickening of the distal esophagus. No evidence for an umbilical hernia. The unenhanced liver, spleen, and adrenal glands are unremarkable. Multiple bilateral renal hypodense lesions and bilateral renal calculi are again noted. No hydronephrosis. A 3.1 cm infrarenal abdominal aortic aneurysm. The unenhanced pancreas and gallbladder are unremarkable. No retroperitoneal lymphadenopathy. The prostate gland is enlarged. No change in the 1 cm hypodense focus within the left anterior prostate gland. Small amount of pelvic fluid. Colonic diverticulosis. The majority of the colon is decompressed. The proximal to mid small bowel loops are mildly distended and gas -filled measuring up to 3.4 cm. Evidence for small bowel anastomosis within the midabdomen. The distal small bowel loops are decompressed and concentrated within the lower pelvis. There is extensive surrounding mesenteric edema and fluid within the small bowel loops within the deep pelvis. There is also mild thickening and edema within the small bowel loops at the midabdomen. There is likely a transition point for the suspected small bowel obstruction immediately proximal to the small bowel anastomosis. This is best seen on image 199 within the midabdomen. IMPRESSION: 1. Small bowel obstruction to the level of the midabdomen where there is an area of focal narrowing immediately proximal to the small bowel anastomosis consistent with the transition point. 2. Extensive mesenteric edema surrounding the mid to distal small bowel loops. There is also fluid surrounding the distal small bowel loops which are concentrated within the deep pelvis. Some of this could related to the recent postoperative change. However, these findings raise the possibility of vascular compromise/bowel ischemia. However, there is no pneumoperitoneum or pneumatosis at this time. Clinical correlation recommended. 3. A 6 mm left lower lobe nodule. 4. Additional findings as described above." ABDOMEN 2VIEW 12/31/17 "FINDINGS: Interval development of left basilar infiltrative change. Lungs otherwise are clear. Placement of a nasogastric tube within the gastric fundus. Small bowel distention persists but is diminished from the prior exam. Increased gas and fecal material within the colon is present. Stable postoperative changes of the chest including laminectomy of the lumbar spine. IMPRESSION: 1. Improved small bowel pattern with decreased number of moderately distended loops of small bowel. 2. Interval placement of nasogastric tube within the stomach. 3. Interval infiltrative process left lung base. 01/01/18 Transfer centers to [facility] (spoke with a Dr. Key, surgeon) and [facility] in [place] was called at the request of Dr. Erin Saini who has been the surgeon following the patient's case for small bowel obstruction [facility] Dr. Key has accepted the patient. Bed available for the patient [facility]. 01/01/18 labs notable for serum magnesium 1.9 and 1 gram IV magnesium ordered, hypernatremia with serum sodium 147 and IV normal saline ordered to be stopped, and improvements in renal function with improvements in acute kidney injury as BUN 31 and creatinine 1.59 Disposition: Patient to be transported to [facility] for further evaluation and management of the small bowel obstruction Discharge diagnosis small bowel obstruction acute kidney injury hypernatremia from IV fluids High Grade Bilateral Carotid Stenosis (outpatient vascular follow-up for 01/03) history of right BKA history of hernia repair with mesh history of open heart surgery (CABG x4 and home medications of on aspirin, statin, b-anabel) history of stroke Current Hospital Diet Patient's current hospital diet: Discharge Diet Recommended Diet: N/A (NPO) Pending Studies Studies pending at discharge: no Laboratory Results 01/01/18 12:01 Red Blood Count 3.18, Mean Corpuscular Volume 103.5, Mean Corpuscular Hemoglobin 33.0, Mean Corpuscular Hemoglobin Concent 31.9, Mean Platelet Volume 10.4, Neutrophils (%) (Auto) 83.6, Lymphocytes (%) (Auto) 10.2, Monocytes (%) ( Auto) 5.5, Eosinophils (%) (Auto) 0.3, Basophils (%) (Auto) 0.2, Neutrophils # ( Auto) 5.02, Lymphocytes # (Auto) 0.61, Monocytes # (Auto) 0.33, Eosinophils # ( Auto) 0.02, Basophils # (Auto) 0.01 01/01/18 12:01 Test 12/29/17 17:05 12/29/17 22:14 12/30/17 00:38 12/30/17 05:18 Prothrombin Time 10.7 SECONDS (9.0-12.0) Prothromb Time International Ratio 1.0 (0.9-1.1) Troponin I < 0.015 ng/ml (0-0.045) Lipase 144 U/L (73-393) Bedside Lactic Acid Venous 2.42 mmol/L (0.90-1.70) Urine Color DK YELLOW Urine Appearance CLEAR (CLEAR) Urine pH 8.5 (4.5-7.5) Urine Specific [place] 1.020 (1.000-1.030) Urine Protein NEG (NEG) Urine Glucose (UA) NEG (NEG) Urine Ketones TRACE (NEG) Urine Occult Blood NEG (NEG) Urine Nitrite NEG (NEG) Urine Bilirubin NEG (NEG) Urine Urobilinogen NEG (NEG) Urine Leukocyte Esterase NEG (NEG) Urine WBC (Auto) 1-5 /hpf (0-5) Urine RBC (Auto) 0-4 /hpf (0-4) Urine Hyaline Casts (Auto) 1-5 /lpf (0-5) Urine Epithelial Cells (Auto) 20-30 /lpf (0-5) Urine Bacteria (Auto) NEG (NEG) Lactic Acid Level 1.9 mmol/L (0.4-2.0) Test 01/01/18 12:01 White Blood Count 6.00 K/uL (4.8-10.8) Red Blood Count 3.18 M/uL (4.7-6.1) Hemoglobin 10.5 g/dL (14.0-18.0) Hematocrit 32.9 % (42-52) Mean Corpuscular Volume 103.5 fL (80-100) Mean Corpuscular Hemoglobin 33.0 pg (25-34) Mean Corpuscular Hemoglobin Concent 31.9 g/dl (32-36) Platelet Count 164 K/uL (130-400) Mean Platelet Volume 10.4 fL (7.4-10.4) Neutrophils (%) (Auto) 83.6 % Lymphocytes (%) (Auto) 10.2 % Monocytes (%) (Auto) 5.5 % Eosinophils (%) (Auto) 0.3 % Basophils (%) (Auto) 0.2 % Neutrophils # (Auto) 5.02 K/uL (1.4-6.5) Lymphocytes # (Auto) 0.61 K/uL (1.2-3.4) Monocytes # (Auto) 0.33 K/uL (0.11-0.59) Eosinophils # (Auto) 0.02 K/uL (0-0.5) Basophils # (Auto) 0.01 K/uL (0-0.2) RDW Standard Deviation 58.4 fL (36.4-46.3) RDW Coefficient of Variation 15.6 % (11.5-14.5) Immature Granulocyte % (Auto) 0.2 % Immature Granulocyte # (Auto) 0.01 K/uL (0.00-0.02) Anion Gap 12.0 mmol/L (3-11) Est Creatinine Clear Calc Drug Dose 27.6 ml/min Estimated GFR () 46.8 Estimated GFR (Non- 40.4 BUN/Creatinine Ratio 19.2 (10-20) Calcium Level 7.8 mg/dl (8.5-10.1) Phosphorus Level 3.2 mg/dl (2.5-4.9) Magnesium Level 1.9 mg/dl (1.8-2.4) Total Bilirubin 0.7 mg/dl (0.2-1) Aspartate Amino Transf (AST/SGOT) 15 U/L (15-37) Alanine Aminotransferase (ALT/SGPT) 14 U/L (12-78) Alkaline Phosphatase 46 U/L (45-117) Total Protein 4.9 gm/dl (6.4-8.2) Albumin 2.7 gm/dl (3.4-5.0) Globulin 2.2 gm/dl (2.5-4.0) Albumin/Globulin Ratio 1.2 (0.9-2) Hemoglobin A1c Test 12/01/17 05:11 Range/Units Estimated Average Glucose 117 mg/dl Hemoglobin A1c 5.7 H 4.5-5.6 % Lipid Panel Test 12/01/17 05:11 Range/Units Triglycerides Level 86 0-150 mg/dl Cholesterol Level 73 0-200 mg/dl HDL Cholesterol 39 mg/dl Cholesterol/HDL Ratio 1.9 LDL Cholesterol, Calculated 17 mg/dl Medical Emergencies . Who to Call and When: Medical Emergencies: If at any time you feel your situation is an emergency, please call 911 immediately. . Non-Emergent Contact Non-Emergency issues call your: Surgeon Call Non-Emergent contact if: you have any medication questions . . "Provider Documentation" section prepared by Eduardo Mueller. .
[2018-01-01 13:24] VITALS: BP 148/72; PULSE 72; TEMP 36.8; O2SAT 96
--- NOTE | 2018-01-01 13:26 | Discharge Summary ---
Discharge Summary Date of Service Jan 01, 2018. Discharge Summary Admission Date: Dec 29, 2017 at 21:53 Discharge Date: Jan 01, 2018 Discharge Disposition: Acute care facility ([facility]) Principal Diagnosis: small bowel obstruction Secondary Diagnoses/Problems: acute kidney injury hypernatremia from IV fluids High Grade Bilateral Carotid Stenosis (outpatient vascular follow-up for 01/03) history of right BKA history of hernia repair with mesh history of open heart surgery (CABG x4 and home medications of on aspirin, statin, b-anabel) history of stroke Admission Information HPI (per Admitting provider): Patient is an 82 yr male with PMH H/O CAD s/p CABG, CVA with residual LUE weakness, HTN, HLD, RA, BPH and other problems presents with history of abdominal pain nausea and vomiting which started this morning. Patient was treated 3 weeks ago for incarcerated umbilical hernia and partial small bowel resection by Dr. Cerna. Patient developed sudden onset of abdominal pain which is umbilical and region, 7/10 intensity, constant, sharp in quality, nonradiating, associated with multiple episodes of nausea and vomiting. Last bowel movement was this morning. Patient had no flatus since the bowel movement. CT abdomen is suggestive of SBO with transition point proximal to small bowel anastomosis. Lactate levels were elevated .Patient was evaluated by surgery in ED who suggestive conservative management. Denies any history of chest pain, SOB, dizziness, diaphoresis, fever, chills, blood in stools, diarrhea, dysuria. Physical Exam (per Admitting): General Appearance: no apparent distress, + thin Head: normocephalic, atraumatic Eyes: normal inspection, PERRL, EOMI, sclerae normal ENT: normal ENT inspection, hearing grossly normal Neck: supple, trachea midline Respiratory/Chest: chest non-tender, lungs clear, normal breath sounds, no respiratory distress, no accessory muscle use Cardiovascular: regular rate, rhythm, no edema, no murmur Abdomen/GI: normal bowel sounds, soft, + tenderness (Umbilical region) Back: normal inspection Extremities/Musculoskelatal: normal inspection, no pedal edema, + pertinent finding (Left BKA) 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 Cerna, presents with sudden onset of abdominal pain which is umbilical and region, 7/10 intensity, constant, sharp in quality, nonradiating, associated with multiple episodes of nausea and vomiting and found to have small bowel obstruction with transition point proximal to small bowel anastomosis and elevated lactate levels ABDOMEN AND PELVIS CT WITH ORAL CONTRAST 12/29/17 "FINDINGS: A 6 mm left lower lobe nodule on image 8. A few bibasilar linear densities. No pneumoperitoneum. No pneumatosis. Posterior fusion hardware seen within the lumbar spine. There are are also poststernotomy changes. There is a small hiatus hernia and thickening of the distal esophagus. No evidence for an umbilical hernia. The unenhanced liver, spleen, and adrenal glands are unremarkable. Multiple bilateral renal hypodense lesions and bilateral renal calculi are again noted. No hydronephrosis. A 3.1 cm infrarenal abdominal aortic aneurysm. The unenhanced pancreas and gallbladder are unremarkable. No retroperitoneal lymphadenopathy. The prostate gland is enlarged. No change in the 1 cm hypodense focus within the left anterior prostate gland. Small amount of pelvic fluid. Colonic diverticulosis. The majority of the colon is decompressed. The proximal to mid small bowel loops are mildly distended and gas -filled measuring up to 3.4 cm. Evidence for small bowel anastomosis within the midabdomen. The distal small bowel loops are decompressed and concentrated within the lower pelvis. There is extensive surrounding mesenteric edema and fluid within the small bowel loops within the deep pelvis. There is also mild thickening and edema within the small bowel loops at the midabdomen. There is likely a transition point for the suspected small bowel obstruction immediately proximal to the small bowel anastomosis. This is best seen on image 199 within the midabdomen. IMPRESSION: 1. Small bowel obstruction to the level of the midabdomen where there is an area of focal narrowing immediately proximal to the small bowel anastomosis consistent with the transition point. 2. Extensive mesenteric edema surrounding the mid to distal small bowel loops. There is also fluid surrounding the distal small bowel loops which are concentrated within the deep pelvis. Some of this could related to the recent postoperative change. However, these findings raise the possibility of vascular compromise/bowel ischemia. However, there is no pneumoperitoneum or pneumatosis at this time. Clinical correlation recommended. 3. A 6 mm left lower lobe nodule. 4. Additional findings as described above." ABDOMEN 2VIEW 12/31/17 "FINDINGS: Interval development of left basilar infiltrative change. Lungs otherwise are clear. Placement of a nasogastric tube within the gastric fundus. Small bowel distention persists but is diminished from the prior exam. Increased gas and fecal material within the colon is present. Stable postoperative changes of the chest including laminectomy of the lumbar spine. IMPRESSION: 1. Improved small bowel pattern with decreased number of moderately distended loops of small bowel. 2. Interval placement of nasogastric tube within the stomach. 3. Interval infiltrative process left lung base. 01/01/18 Transfer centers to [facility] (spoke with a Dr. Key, surgeon) and [facility] in [place] was called at the request of Dr. Erin Saini who has been the surgeon following the patient's case for small bowel obstruction [facility] Dr. Key has accepted the patient. Bed available for the patient [facility]. 01/01/18 labs notable for serum magnesium 1.9 and 1 gram IV magnesium ordered, hypernatremia with serum sodium 147 and IV normal saline ordered to be stopped, and improvements in renal function with improvements in acute kidney injury as BUN 31 and creatinine 1.59 Disposition: Patient to be transported to [facility] for further evaluation and management of the small bowel obstruction Discharge diagnosis small bowel obstruction acute kidney injury hypernatremia from IV fluids High Grade Bilateral Carotid Stenosis (outpatient vascular follow-up for 01/03) history of right BKA history of hernia repair with mesh history of open heart surgery (CABG x4 and home medications of on aspirin, statin, b-anabel) history of stroke Total time spent on discharge = 60 minutes This includes examination of the patient, discharge planning, medication reconciliation, and communication with other providers. Discharge Instructions see above
== END 2018-01-01 15:25 | disposition short-term general hospital (02) | DRG 389 ==
LOC: C.EDB 16:35 → C.MSW 21:53 → ENRESERV 22:09
PROVIDERS: ADMIT Internal Medicine; ATTEND Internal Medicine
DX: K91.31 Postprocedural partial intestinal obstruction (principal); N17.9 Acute kidney failure, unspecified; E87.0 Hyperosmolality and hypernatremia; Z98.0 Intestinal bypass and anastomosis status; Z98.890 Other specified postprocedural states; I12.9 Hypertensive chronic kidney disease with stage 1 through stage 4 chronic kidney disease, or unspecified chronic kidney disease; N18.3 Chronic kidney disease, stage 3 (moderate); I65.23 Occlusion and stenosis of bilateral carotid arteries; I25.10 Atherosclerotic heart disease of native coronary artery without angina pectoris; E78.5 Hyperlipidemia, unspecified; M06.9 Rheumatoid arthritis, unspecified; K21.9 Gastro-esophageal reflux disease without esophagitis; Z66 Do not resuscitate; Z95.1 Presence of aortocoronary bypass graft; I69.334 Monoplegia of upper limb following cerebral infarction affecting left non-dominant side; Z87.891 Personal history of nicotine dependence; Z89.511 Acquired absence of right leg below knee; Z79.52 Long term (current) use of systemic steroids; Z79.82 Long term (current) use of aspirin; Z79.899 Other long term (current) drug therapy; Z91.041 Radiographic dye allergy status; Z88.2 Allergy status to sulfonamides; Z88.8 Allergy status to other drugs, medicaments and biological substances; Z82.49 Family history of ischemic heart disease and other diseases of the circulatory system

== ENCOUNTER → 2018-01-15 | Outpatient (CLI) | payer OTHER, BC ==
[2018-01-15 13:13] LABS: HEMATOCRIT 33.8 % (42-52); HEMOGLOBIN 10.9 g/dL (14.0-18.0); MEAN CELL VOLUME 100.9 fL (80-100); MEAN CORPUSCULAR HEMOGLOBIN 32.5 pg (25-34); MEAN CORPUSCULAR HGB CONC 32.2 g/dl (32-36); PLATELET COUNT 256 K/uL (130-400); RED CELL DISTRIBUTION WIDTH CV 15.4 % (11.5-14.5); RED CELL DISTRIBUTION WIDTH SD 56.3 fL (36.4-46.3); WHITE BLOOD COUNT 7.82 K/uL (4.8-10.8)
[2018-01-15 13:54] LABS: ALBUMIN 3.6 gm/dl (3.4-5.0); BLOOD UREA NITROGEN 33 mg/dl (7-18); CALCIUM 8.7 mg/dl (8.5-10.1); CARBON DIOXIDE 26 mmol/L (21-32); CREATININE 1.68 mg/dl (0.60-1.40); GLUCOSE 85 mg/dl (70-99); POTASSIUM 3.9 mmol/L (3.5-5.1); SODIUM 139 mmol/L (136-145)
[2018-01-15 13:55] LABS: PHOSPHORUS 3.1 mg/dl (2.5-4.9)
== END | disposition home or self-care (01) ==
LOC: C.LAB1850 12:13
PROVIDERS: ATTEND Internal Medicine Nephrology
DX: I12.9 Hypertensive chronic kidney disease with stage 1 through stage 4 chronic kidney disease, or unspecified chronic kidney disease (principal); D64.9 Anemia, unspecified; N18.3 Chronic kidney disease, stage 3 (moderate); E55.9 Vitamin D deficiency, unspecified

== ENCOUNTER → 2018-04-25 | Outpatient (CLI) | payer OTHER, BC ==
[~2018-04-25] MED LIST changes: +ACET-1311 PO; -ASPI-320 PO; +ASPI81TA28 PO; -CALC1TAB56 PO; +CALC500C70 PO; +DOCU-94 PO; +FERR1TAB62 PO; +LISI-729 PO; -LSN5 PO; +MULT-663 PO; -MULTCHW PO; -NTRGSL/4 UT; +PRD/25 PO; -PRED-301 PO
[2018-04-25 09:36] LABS: BASO % 0.4 %; BASO ABS # 0.02 K/uL (0-0.2); EOS % 5.4 %; EOS ABS # 0.29 K/uL (0-0.5); HEMATOCRIT 34.1 % (42-52); IG# 0.01 K/uL (0.00-0.02); LYMPH % 38.7 %; LYMPH ABS # 2.08 K/uL (1.2-3.4); MEAN CELL VOLUME 99.7 fL (80-100); MEAN CORPUSCULAR HEMOGLOBIN 32.2 pg (25-34); MEAN CORPUSCULAR HGB CONC 32.3 g/dl (32-36); MEAN PLATELET VOLUME 11.3 fL (7.4-10.4); MONO % 7.4 %; NEUT % 47.9 %; NEUT ABS # 2.57 K/uL (1.4-6.5); PLATELET COUNT 197 K/uL (130-400); RED CELL DISTRIBUTION WIDTH CV 14.3 % (11.5-14.5); RED CELL DISTRIBUTION WIDTH SD 50.9 fL (36.4-46.3); WHITE BLOOD COUNT 5.37 K/uL (4.8-10.8)
[2018-04-25 09:50] LABS: ALBUMIN 3.7 gm/dl (3.4-5.0); ALKALINE PHOSPHATASE 55 U/L (45-117); ALT/SGPT 14 U/L (12-78); AST/SGOT 14 U/L (15-37); CREATININE 2.24 mg/dl (0.60-1.40); TOTAL PROTEIN 6.5 gm/dl (6.4-8.2)
== END | disposition home or self-care (01) ==
LOC: C.LAB1850 08:36
PROVIDERS: ATTEND Internal Medicine Rheumatology
DX: Z51.81 Encounter for therapeutic drug level monitoring (principal); M06.9 Rheumatoid arthritis, unspecified; Z79.899 Other long term (current) drug therapy; Z79.52 Long term (current) use of systemic steroids; K21.9 Gastro-esophageal reflux disease without esophagitis